=== PATIENT | female | born 1980 | race Hispanic/Latino ===

== ENCOUNTER 2016-06-28 23:48 | Inpatient (IN) | payer MEDICAID ==
[2016-06-29 00:53] LABS: Hematocrit 39.1 % (30.3-42.9); Hemoglobin 12.5 gm/dl (10.1-14.3); Mean Corpuscular HGB Conc 32 % (30-34); Mean Corpuscular Hemoglobin 30 pg (28-32); Mean Corpuscular Volume 93 fl (79-97); Platelet Count 287 K/mm3 (140-440); Red Cell Distribution Width 14.7 % (13.2-15.2)
[2016-06-29 00:58] LABS: White Blood Count 26.7 K/mm3 (4.5-11.0)
[2016-06-29 01:15] LABS: Anion Gap 25 mmol/L; BUN/Creatinine Ratio 11.42; Blood Urea Nitrogen 8 mg/dL (7-17); Carbon Dioxide 22 mmol/L (22-30); Glucose 217 mg/dL (65-100); Potassium 3.9 mmol/L (3.6-5.0); Sodium 139 mmol/L (137-145)
[2016-06-29] MEDS ORDERED: ZOSYN/NS 4.5GM/100ML 4.5 GM/100 ML VIAL IV ONE (02:00)
[2016-06-29] MEDS ORDERED: ZOFRAN IV ONE (02:00)
[2016-06-29] MEDS ORDERED: TYLENOL PO ONE (02:00)
[2016-06-29] MEDS ORDERED: NACL 0.9% 1000 ML 1,000 ML IV ONE (02:00)
[2016-06-29] MEDS ORDERED: MORPHINE IV ONE (02:00)
--- NOTE | 2016-06-29 02:01 | Emergency Department Report ---
ED General Adult HPI - General Chief complaint: Dyspnea/Respdistress Stated complaint: MESFIN Time Seen by Provider: 06/29/16 01:47 Source: patient, RN notes reviewed Mode of arrival: Ambulatory Limitations: No Limitations - History of Present Illness Initial comments: This is a 36-year-old female. She is previously known to me. Does not have a local primary care doctor. Comes to the ER complaining of epigastric right upper quadrant and left upper quadrant abdominal pain. The pain is sharp. It increases with palpation and decreases with rest. Positive fever. Positive nausea. No lower abdominal pain. No leg pain. No leg swelling. Mild shortness of breath. Is no association with heavy and/or spicy foods. -: Gradual Location: abdomen Severity scale (0 -10): 5 Quality: stabbing, aching Consistency: constant Improves with: rest Worsens with: movement Associated Symptoms: fever/chills, loss of appetite, shortness of breath, weakness - Related Data Allergies Allergy/AdvReac Type Severity Reaction Status Date / Time No Known Allergies Allergy Verified 06/29/16 00:01 ED Review of Systems ROS: Stated complaint: MESFIN Other details as noted in HPI Constitutional: fever, malaise, weakness Eyes: denies: vision change ENT: denies: epistaxis Respiratory: see HPI Cardiovascular: chest pain Gastrointestinal: abdominal pain Genitourinary: denies: dysuria Musculoskeletal: denies: back pain Skin: denies: lesions Neurological: weakness Psychiatric: anxiety ED Past Medical Hx - Past Medical History Previous Medical History?: No - Surgical History Past Surgical History?: No - Social History Smoking Status: Current Every Day Smoker Substance Use Type: None ED Physical Exam - General Limitations: No Limitations General appearance: alert, in distress, obese - Head Head exam: Present: atraumatic, normocephalic - Eye Eye exam: Present: normal appearance. Absent: PERRL, EOMI, nystagmus - ENT ENT exam: Present: normal exam, normal external ear exam - Neck Neck exam: Present: normal inspection, full ROM. Absent: tenderness, meningismus - Respiratory Respiratory exam: Present: normal lung sounds bilaterally. Absent: respiratory distress, wheezes, rales, rhonchi, decreased breath sounds - Cardiovascular Cardiovascular Exam: Present: normal rhythm, tachycardia, normal heart sounds. Absent: systolic murmur, diastolic murmur, rubs, gallop - GI/Abdominal GI/Abdominal exam: Present: soft, tenderness, normal bowel sounds, other (there is right upper quadrant tenderness, there is epigastric tenderness. No rebound , positive Cormier sign.). Absent: distended, guarding, rebound, rigid, pulsatile mass - Extremities Exam Extremities exam: Present: normal inspection, full ROM, normal capillary refill. Absent: tenderness, pedal edema, joint swelling, calf tenderness - Back Exam Back exam: Present: normal inspection, full ROM. Absent: tenderness, CVA tenderness (R), CVA tenderness (L), muscle spasm, paraspinal tenderness, vertebral tenderness - Neurological Exam Neurological exam: Present: alert, oriented X3, other (Extraocular movements intact. Tongue midline. No facial droop. Facial sensation intact to light touch in the V1, V2, V3 distribution bilaterally. 5 and 5 strength in 4 extremities.. Sensation is intact to light touch in 4 extremities.). Absent: motor sensory deficit - Psychiatric Psychiatric exam: Present: normal affect, normal mood - Skin Skin exam: Present: warm, dry, intact, normal color. Absent: rash ED Course Vital Signs 06/28/16 06/29/16 06/29/16 23:58 00:51 02:00 Temperature 99.2 F 100.8 F H Pulse Rate 122 H 106 H Respiratory 24 18 Rate Blood Pressure 98/50 131/67 [Right] O2 Sat by Pulse 100 96 96 Oximetry 06/29/16 06/29/16 04:00 05:51 Temperature 99.1 F 98.9 F Pulse Rate 120 H 121 H Respiratory 16 18 Rate Blood Pressure 108/48 102/48 [Right] O2 Sat by Pulse 96 96 Oximetry - Reevaluation(s) Reevaluation #1: 06/29/16 02:51 Differential diagnosis: Pancreatitis, cholecystitis, biliary obstruction, pneumonia, urinary tract infection Assessment and plan: 36-year-old female with epigastric and right upper quadrant pain, tachycardia, fever, leukocytosis. My bedside ultrasound demonstrates gallbladder stones, we will obtain a formal radiology ultrasound. IV fluids, broad-spectrum antibiotics, pain medication, nausea medication, Tylenol ordered. Pneumonia also possibility, x-ray suggests this as well. Reevaluation #2: 06/29/16 03:24 Right upper quadrant ultrasound demonstrates gallbladder stones, obstructing common bile duct stone. She has a transaminitis, and elevations in direct and indirect bilirubin. Clinical picture consistent with obstructing cholangitis. Case is discussed with general surgeon, Dr. Curry, who agrees to see the patient is a consult. Case is discussed with gastroenterology, Dr. Rose, who agrees to see the patient has a consult. He recommends a CT scan of the abdomen and pelvis to better evaluate patient's anatomy. Case is discussed with Hospital physician, Dr. Viramontes, who accepts patient to her service. ED Medical Decision Making - Lab Data Result diagrams: 06/30/16 05:58 06/30/16 05:58 Vital Signs 06/28/16 06/29/16 23:58 00:51 Temperature 99.2 F 100.8 F H Pulse Rate 122 H 106 H Respiratory 24 18 Rate Blood Pressure 98/50 131/67 [Right] O2 Sat by Pulse 100 96 Oximetry Lab Results 06/29/16 06/29/16 06/29/16 Range/Units 00:25 00:25 00:25 WBC 26.7 H (4.5-11.0) K/mm3 RBC 4.20 (3.65-5.03) M/mm3 Hgb 12.5 (10.1-14.3) gm/dl Hct 39.1 (30.3-42.9) % MCV 93 (79-97) fl MCH 30 (28-32) pg MCHC 32 (30-34) % RDW 14.7 (13.2-15.2) % Plt Count 287 (140-440) K/mm3 Seg Neutrophils % Upper [place] Sodium 139 (137-145) mmol/L Potassium 3.9 (3.6-5.0) mmol/L Chloride 96.0 L (98-107) mmol/L Carbon Dioxide 22 (22-30) mmol/L Anion Gap 25 mmol/L BUN 8 (7-17) mg/dL Creatinine 0.7 (0.7-1.2) mg/dL Estimated GFR > 60 ml/min BUN/Creatinine Ratio 11.42 % Glucose 217 H (65-100) mg/dL Calcium 9.0 (8.4-10.2) mg/dL Troponin T < 0.010 (0.00-0.029) ng/mL HCG, Qual Negative (Negative) - EKG Data 06/29/16 02:52 Sinus tachycardia, 110 bpm, QTC 460 ms, poor R wave progression, borderline left ventricular hypertrophy, T-wave inversions in the inferior leads, not morphologically consistent with stemi - Radiology Data Radiology results: report reviewed, image reviewed interpreted by me: X-ray of the chest suggest bilateral subtle atelectasis versus pneumonia. Critical care attestation.: If time is entered above; I have spent that time in minutes in the direct care of this critically ill patient, excluding procedure time. ED Disposition Clinical Impression: Cholangitis, Cholecystitis, Sepsis Disposition: OP ADMITTED IP TO THIS HOSP Is pt being admited?: Yes Condition: Good
--- NOTE | 2016-06-29 02:35 | XRay Report ---
FINAL REPORT EXAM: XR CHEST ROUTINE 2V HISTORY: Shortness of breath COMPARISON: None available. FINDINGS:: Frontal and lateral views of the chest obtained. Cardiac silhouette is within normal limits. Shallow inspiration. Nonspecific hazy linear opacities at the lung bases which may reflect mild atelectasis. Subtle infection cannot be excluded. No dense consolidation or effusion. No pneumothorax. Bony structures are grossly intact. IMPRESSION:: Nonspecific hazy opacities at the lung bases concerning for mild atelectasis. Small focus of pneumonia cannot be excluded.
[2016-06-29 03:00] LABS: Albumin 4.3 g/dL (3.9-5); Albumin/Globulin Ratio 1.2 %; Bilirubin,Direct 1.5 mg/dL (0-0.2); Bilirubin,Indirect 0.8 mg/dL; Bilirubin,Total 2.3 mg/dL (0.1-1.2)
[2016-06-29 03:11] LABS: INR 1.02 (0.87-1.13)
[2016-06-29 03:21] LABS: Basophils % (Manual) 0 % (0.0-1.8); Blastocytes % (Manual) 0 %; Eosinophils % (Manual) 0 % (0.0-4.3); Total Cells Counted Percent 3.5
[2016-06-29 03:22] LABS: Anisocytosis 1+; Diff Status Complete
--- NOTE | 2016-06-29 03:34 | Ultrasound Report ---
FINAL REPORT EXAM: US ABDOMEN LIMITED HISTORY: ruq pain COMPARISON: None available. TECHNIQUE: Several real-time grayscale and color Doppler images were obtained. FINDINGS: Visualized pancreas is homogeneous in echogenicity. There is increased echogenicity of the liver compatible with fatty infiltration. Right hepatic lobe measures 11.1 centimeters in length. Mild right-sided hydronephrosis. No focal renal lesion demonstrated. There is vascular flow to the right kidney. Cholelithiasis. There is a shadowing gallstone measuring 1.3 centimeters towards the gallbladder neck. Within the common bile duct there is a shadowing calculus measuring 1.3 centimeters. There dilatation the common bile duct measuring 17 millimeters. Within the distal common bile duct there is a 2nd stone. Technologist notes positive sonographic Cormier's sign. Visualized portal vein is patent. IMPRESSION: Cholelithiasis and choledocholithiasis causing dilatation the common bile duct measuring up to 17 millimeters. Technologist notes positive sonographic Cormier sign. In the correct clinical setting findings of the concerning for acute cholecystitis. Mild fatty infiltration of the liver.
[2016-06-29] MEDS ORDERED: DULCOLAX PR PRN (03:56)
[2016-06-29] MEDS ORDERED: MILK OF MAGNESIA PO PRN (03:56)
--- NOTE | 2016-06-29 04:03 | History and Physical Report ---
History of Present Illness Date of examination: 06/29/16 History of present illness: 36-year-old woman who medical problem comes emergency room with complaints of abdominal pain. Pain is located in the right upper quadrant, epigastric area which she describes as sharp pain, constant, intensity 7/10, no radiation and she cannot identify exacerbating or relieving factors. She's had multiple episodes of nausea vomiting, fever and chills Patient denies chest pain, palpitation, shortness of breath, cough, hematochezia , dysuria, frequency, focal weakness, dysarthria,, polydipsia polyuria, hot or cold intolerance, easy bruisability, or rash or bleeding from mucosal membrane, rhinorrhea, epistaxis, earache, tinnitus, blurry vision, eye discharge, anxiety , depression. Other review of systems negative PAST SURGICAL HISTORY:c/s SOCIAL HISTORY: Smoke a pack a day, no alcohol or drugs FAMILY HISTORY: Hypertension Medications and Allergies Allergies Allergy/AdvReac Type Severity Reaction Status Date / Time No Known Allergies Allergy Verified 06/29/16 00:01 Home Medications Medication Instructions Recorded Confirmed Last Taken Type ALBUTEROL NEB's [Proventil 0.083% 2.5 mg IH Q4HRT PRN #30 nebu 07/06/16 Unknown Rx NEBS] Budesoni/Formotero 160-4.5(Nf) 2 puff IH BID #1 inha 07/06/16 Unknown Rx [Symbicort 160-4.5 (Nf)] Levofloxacin [Levaquin TAB] 500 mg PO QDAY #10 tablet 07/06/16 Unknown Rx Zolpidem [Ambien] 10 mg PO QHS #30 tablet 07/06/16 Unknown Rx Active Meds: Active Medications Acetaminophen (Tylenol) 650 mg PO Q4H PRN PRN Reason: Pain MILD(1-3)/Fever >100.5/KING Bisacodyl (Dulcolax) 10 mg [place] QDAY PRN PRN Reason: Constipation unrelieved by MOM Enoxaparin Sodium (Lovenox) 40 mg SUB-Q QDAY ROHAN Sodium Chloride (Nacl 0.9% 1000 Ml) 1,000 mls @ 150 mls/hr IV DIRECT ROHAN Magnesium Hydroxide (Milk Of Magnesia) 30 ml PO Q4H PRN PRN Reason: Constipation Morphine Sulfate (Morphine) 2 mg IV Q4H PRN PRN Reason: Pain, Moderate (4-6) Ondansetron HCl (Zofran) 4 mg IV Q4H PRN PRN Reason: N/V unrelieved by Reglan Exam - Physical Exam Narrative exam: Gen. appearance: Patient lying in bed, no apparent distress HEENT: Normocephalic, atraumatic, pupils equally round and reactive to light, extraocular movement intact, and no sclericterus,. No JVD or thyromegaly or nodule,neck supple, no carotid bruit ,mucous membranes moist, no exudate or erythema Heart: S1, S2, regular rate and rhythm Lungs: Clear to auscultation bilaterally, breathing comfortable Abdomen: Positive bowel sounds, tender in the right upper quadrant, epigastric area, nondistended, no organomegaly Extremity: No edema, cyanosis, clubbing Skin: No rash, nodules, warm, dry Neuro: Oriented 3, cranial nerves II-12 intact, speech is fluent, motor and sensory intact - Constitutional Vitals: Temp Pulse Resp BP Pulse Ox 100.8 F H 106 H 18 131/67 96 06/29/16 00:51 06/29/16 00:51 06/29/16 00:51 06/29/16 00:51 06/29/16 00:51 Results - Labs CBC & Chem 7: 07/05/16 05:13 07/04/16 05:10 Labs: Abnormal lab results 06/29/16 06/29/16 06/29/16 Range/Units 00:25 00:25 00:25 WBC 26.7 H (4.5-11.0) K/mm3 Seg Neuts % (Manual) 92.0 H (40.0-70.0) % Lymphocytes % (Manual) 1.5 L (13.4-35.0) % Seg Neutrophils # Man 24.6 H (1.8-7.7) K/mm3 Lymphocytes # (Manual) 0.4 L (1.2-5.4) K/mm3 Monocytes # (Manual) 0.9 H (0.0-0.8) K/mm3 Chloride 96.0 L (98-107) mmol/L Glucose 217 H (65-100) mg/dL Total Bilirubin 2.3 H (0.1-1.2) mg/dL Direct Bilirubin 1.5 H (0-0.2) mg/dL AST 217 H (5-40) units/L ALT 154 H (7-56) units/L Alkaline Phosphatase 347 H (35-129) units/L - Imaging and Cardiology US - abdomen: report reviewed
[2016-06-29] MEDS ORDERED: NACL 0.9% 1000 ML 2,000 ML ONE (05:11)
--- NOTE | 2016-06-29 05:28 | Cat Scan Report ---
FINAL REPORT PROCEDURE: CT ABDOMEN PELVIS W CON TECHNIQUE: Computerized axial tomography of the abdomen and pelvis was performed after the IV injection of iodinated nonionic contrast. HISTORY: biliary obstruction COMPARISON: No prior studies are available for comparison. FINDINGS: Visualized lower thorax: No significant abnormality. Liver: Normal size and attenuation. Spleen: Normal size and attenuation. Gallbladder and biliary system: There are stones in the distal common bile duct measuring up to 1 centimeter causing biliary obstruction with dilatation of the intra and extrahepatic bile ducts. There are stones in the gallbladder and proximal common bile duct. There is pericholecystic fluid suggesting acute cholecystitis.. Pancreas: Normal. Adrenals: Normal. Kidneys: Normal. GI tract: There is no bowel obstruction, colitis or enteritis. The appendix is not identified.. Lymph nodes and mesentery: There are multiple enlarged mesenteric lymph nodes in the gastrohepatic ligament, shirlene hepatis and portacaval space.. Vasculature: Normal. Bladder: Normal. Reproductive organs: Uterus and ovaries are unremarkable.. Peritoneum: There is no ascites, free air, or abscess. Musculoskeletal structures: No significant abnormality. Other: None. IMPRESSION: There are stones in the distal common bile duct measuring up to 1 centimeter causing biliary obstruction with dilatation of the intra and extrahepatic bile ducts. There are stones in the gallbladder and proximal common bile duct. There is pericholecystic fluid suggesting acute cholecystitis.. There is no bowel obstruction, colitis or enteritis. The appendix is not identified.. There are multiple enlarged mesenteric lymph nodes in the gastrohepatic ligament, shirlene hepatis and portacaval space.. Uterus and ovaries are unremarkable.. There is no ascites, free air, or abscess.
[2016-06-29] MEDS ORDERED: NACL 0.9% 500 ML IV SCH (06:00)
[2016-06-29] MEDS: MORPHINE IV PRN ×3 (06:43→16:54)
[2016-06-29] MEDS: NACL 0.9% 1000 ML 1,000 ML IV SCH ×3 (06:53→22:23)
--- NOTE | 2016-06-29 07:54 | Admit Criteria Form ---
Admission Criteria Documentation: GALLBLADDER OR BILE DUCT INFLAMMATION OR STONE Clinical Indications for Admission to Inpatient Care ( Place 'X' for any and all applicable criteria): Admission is indicated for patients with ANY ONE of the following(1)(2)(3)(4)(5) : [X ]I. Acute cholecystitis as indicated by ALL of the following: [X ]a) Right upper quadrant pain, mass, or tenderness [X ]b) Systemic signs of inflammation indicated by ANY ONE of the following: [ X]i) Fever [ ]ii) C-reactive protein level greater than 10 mg/L (95 nmol/L) [X ]iii) White blood cell count greater than 10,000/mm3 (10 x109/L) or less than 4000/mm3 (4 x109/L) [ ]II. Inpatient admission required rather than observation care (Also use Gallbladder or Bile Duct Inflammation or Stone: Observation Care as appropriate) because of ANY ONE of the following: [ ]a) Common bile duct obstruction diagnosed [ ]b) Vomiting that is severe or persistent [ ]c) Severe pain requiring acute inpatient management [ ]d) Signs of intestinal obstruction or peritonitis [A] [ ]e) Severe electrolyte abnormalities requiring inpatient care [ ]f) Absent bowel sounds with complete ileus(8) [ ]g) Hemodynamic instability [ ]h) High fever or infection requiring inpatient admission as indicated by ANY ONE of the following (9): [ ]1) Appropriate outpatient or observation care antimicrobial Treatment. unavailable, not effective, or not feasible [ ]2) Temperature greater than 104.9 degrees F (40.5 degrees C) (oral) [ ]3) Temperature greater than 103.1 degrees F (39.5 degrees C) (oral) or less than 96.8 degrees F (36 degrees C) (rectal) that does not respond to all emergency treatment measures [ ]4) Documented bacteremia [ ]i) IV fluid to replace significant ongoing losses (greater than 3 L/m2 per day) [ ]j) Percutaneous or open drainage (eg, abscess, biliary tract) procedures [ ]k) Immediate inpatient surgery [ ]l) Other condition, treatment or monitoring requiring inpatient admission [ ]III. Acute cholangitis as indicated by ALL of the following(9)(10): [ ]a) Systemic signs of inflammation indicated by ANY ONE of the following: [ ]i) Fever [ ]ii) C-reactive protein level greater than 10 mg/L (95 nmol /L) [ ]iii) White blood cell count greater than 10,000/mm3 (10 x109/L) or less than 4000/mm3 (4 x109/L) [ ]b) Evidence of common bile duct disease indicated by ANY ONE of the following: [ ]i) Total serum bilirubin level greater than or equal to 2 mg/dL (34 micromoles/L) [ ]ii) Liver function test (alkaline phosphatase (ALP), r- glutamyltransferase (GGT), aspartate aminotransferase (AST), or alanine aminotransferase (ALT)) greater than 1.5 times the upper limit of normal[B] [ ]iii) Hepatobiliary imaging showing biliary dilatation or evidence of etiology (eg, stricture, stone, previously placed stent) Extended stay beyond goal length of stay may be needed for (1)(2)): [ ]a) Bacteremia or Hemodynamic instability [ ]b) Cholecystectomy [ ]c) Other surgical procedure(24) [ ]d) Percutaneous or endoscopic ultrasound-guided cholecystostomy The original [facility] [employer] content created by [facility] [employer] has been revised. The portions of the content which have been revised are identified through the use of italic text or in bold, and [facility] has neither reviewed nor approved the modified material. All other unmodified content is copyright [facility]. Please see references footnoted in the original [facility] edition 2016 Admission Criteria Met: Yes
--- NOTE | 2016-06-29 08:55 | Gastroenterology Consultation ---
<HUDSONBRANDEEFIDEL BURCH - Last Filed: 06/29/16 09:00> History of Present Illness - Reason for Consult Consult date: 06/29/16 choledocholithiasis Requesting physician: LIZABETH DELATORRE - History of Present Illness Ms. Almeida is a 36 y/o female admitted with an acute onset of RUQ pain with N/V starting last night. She states she has never had this type of pain in the past. On admission she was noted to have elevated LFTS with + choledocholithiasis per US and CT. US is suggestive of + Cormier sign. No prior hx of biliary disease. Her lactic acid and WBC are elevated with a temp on admission of 100. She was given Zosyn x 1 dose per ED. Past History Past Medical History: No medical history Past Surgical History: Other (c/s) Social history: smoking. denies: alcohol abuse Family history: no significant family history Medications and Allergies Allergies Allergy/AdvReac Type Severity Reaction Status Date / Time No Known Allergies Allergy Verified 06/29/16 00:01 Active Meds: Active Medications Acetaminophen (Tylenol) 650 mg PO Q4H PRN PRN Reason: Pain MILD(1-3)/Fever >100.5/KING Bisacodyl (Dulcolax) 10 mg [place] QDAY PRN PRN Reason: Constipation unrelieved by MOM Sodium Chloride (Nacl 0.9% 1000 Ml) 1,000 mls @ 150 mls/hr IV DIRECT ROHAN Last Admin: 06/29/16 06:53 Dose: 150 mls/hr Piperacillin Sod/Tazobactam Sod (Zosyn/Ns 2.25 Gm/50ml) 2.25 gm in 50 mls @ 100 mls/hr IV Q8HR ROHAN PRN Reason: Protocol Magnesium Hydroxide (Milk Of Magnesia) 30 ml PO Q4H PRN PRN Reason: Constipation Morphine Sulfate (Morphine) 2 mg IV Q4H PRN PRN Reason: Pain, Moderate (4-6) Last Admin: 06/29/16 06:43 Dose: 2 mg Ondansetron HCl (Zofran) 4 mg IV Q4H PRN PRN Reason: N/V unrelieved by Reglan Review of Systems - Review of Systems All systems: negative Gastrointestinal: abdominal pain, nausea, vomiting Exam - Constitutional Vital Signs: Temp Pulse Resp BP Pulse Ox 98.9 F 121 H 18 102/48 96 06/29/16 05:51 06/29/16 05:51 06/29/16 06:43 06/29/16 05:51 06/29/16 05:51 General appearance: no acute distress - EENT Eyes: EOM intact ENT: hearing intact - Neck Neck: supple - Respiratory Respiratory: bilateral: CTA - Cardiovascular Rhythm: regular Heart Sounds: Present: S1 & S2 - Gastrointestinal General gastrointestinal: Present: soft, tender (TTP RUQ), normal bowel sounds - Integumentary Integumentary: Present: warm, dry - Neurologic Neurological: alert and oriented x3 - Psychiatric Psychiatric: appropriate mood/affect, cooperative - Labs CBC & Chem 7: 06/29/16 00:25 06/29/16 00:25 Lab Results: Laboratory Results - last 24 hr 06/29/16 06:17 Lactic Acid 4.0 H* Assessment and Plan 1. Cholangitis 2. Choledocholithiasis 3. Cholecystitis -Continue Zosyn. (pt received 1 dose in the ED) -I have discontinued Lovenox SQ -INR WNL -Keep NPO -WIll need ERCP today -Agree with surgical consult for CCY -Noted WBC 26K with elevated Lactic acid -repeat lactic acid - <GINETTE ZACARIAS - Last Filed: 06/29/16 12:50> Medications and Allergies Active Meds: Active Medications Acetaminophen (Tylenol) 650 mg PO Q4H PRN PRN Reason: Pain MILD(1-3)/Fever >100.5/KING Bisacodyl (Dulcolax) 10 mg NV QDAY PRN PRN Reason: Constipation unrelieved by MOM Sodium Chloride (Nacl 0.9% 1000 Ml) 1,000 mls @ 150 mls/hr IV DIRECT ROHAN Last Admin: 06/29/16 06:53 Dose: 150 mls/hr Piperacillin Sod/Tazobactam Sod (Zosyn/Ns 4.5gm/100ml) 4.5 gm in 100 mls @ 200 mls/hr IV Q8HR ROHAN Last Admin: 06/29/16 11:10 Dose: 200 mls/hr Magnesium Hydroxide (Milk Of Magnesia) 30 ml PO Q4H PRN PRN Reason: Constipation Morphine Sulfate (Morphine) 2 mg IV Q4H PRN PRN Reason: Pain, Moderate (4-6) Last Admin: 06/29/16 11:37 Dose: 2 mg Ondansetron HCl (Zofran) 4 mg IV Q4H PRN PRN Reason: N/V unrelieved by Reglan Exam - Constitutional Vital Signs: Temp Pulse Resp BP Pulse Ox 98.9 F 121 H 18 102/48 96 06/29/16 05:51 06/29/16 05:51 06/29/16 06:43 06/29/16 05:51 06/29/16 10:16 - Labs CBC & Chem 7: 06/29/16 00:25 06/29/16 00:25 Lab Results: Laboratory Results - last 24 hr 06/29/16 06/29/16 06:17 09:41 Lactic Acid 4.0 H* 3.0 H* Assessment and Plan Patient seen and examined. Agree with note by Missy Bass. Patient presenting with abdominal pain and chills since yesterday, appears to have cholangitis. Currently HD stable, cont abx, will repeat labs. Will need ERCP, possibly today vs tomorrow depending on clinical course.
[2016-06-29] MEDS ORDERED: LOVENOX SUB-Q SCH (10:00)
[2016-06-29] MEDS: ZOSYN/NS 4.5GM/100ML 4.5 GM/100 ML VIAL IV SCH ×3 (11:10→23:08)
[2016-06-29] MEDS ORDERED: ZOSYN/NS 2.25 GM/50ML 2.25 GM/50 ML BAG IV SCH (14:00)
[2016-06-29 14:13] LABS: Hemoglobin 10.3 gm/dl (10.1-14.3); Mean Corpuscular HGB Conc 33 % (30-34); Mean Corpuscular Hemoglobin 31 pg (28-32); Mean Corpuscular Volume 93 fl (79-97); Platelet Count 162 K/mm3 (140-440); Red Blood Count 3.35 M/mm3 (3.65-5.03); Red Cell Distribution Width 14.9 % (13.2-15.2)
[2016-06-29 14:36] LABS: White Blood Count 23.3 K/mm3 (4.5-11.0)
[2016-06-29 14:59] LABS: Anisocytosis Few; Blastocytes % (Manual) 0 %; Diff Status Complete; Eosinophils % (Manual) 0 % (0.0-4.3); Platelet Estimate Appears Decreased
[2016-06-29 16:17] LABS: Alanine Aminotransferase 136 units/L (7-56); Albumin 3.1 g/dL (3.9-5); Alkaline Phosphatase 222 units/L (35-129); Anion Gap 19 mmol/L; BUN/Creatinine Ratio 11.66; Bilirubin,Total 3.9 mg/dL (0.1-1.2); Blood Urea Nitrogen 7 mg/dL (7-17); Calcium 7.5 mg/dL (8.4-10.2); Carbon Dioxide 22 mmol/L (22-30); Chloride 101.1 mmol/L (98-107); Glucose 165 mg/dL (65-100); Potassium 4.2 mmol/L (3.6-5.0); Sodium 138 mmol/L (137-145); Total Protein 6.2 g/dL (6.3-8.2)
[2016-06-29] MEDS: ZOFRAN IV PRN (16:54)
[2016-06-29] MEDS: TYLENOL PO PRN (16:54)
[2016-06-29] MEDS ORDERED: GLUCAGEN ONE (20:29)
[2016-06-29] MEDS ORDERED: NACL 0.9% 100 ML ONE (20:29)
--- NOTE | 2016-06-29 20:50 | Anesthesia Consultation ---
Anesthesia Consult and Med Hx - Airway Anesthetic Teeth Evaluation: Edentulous ROM Head & Neck: Adequate Mental/Hyoid Distance: Adequate Mallampati Class: Class II Intubation Access Assessment: Probably Good - Pulmonary Exam CTA: Yes - Cardiac Exam Cardiac Exam: RRR - Pre-Operative Health Status ASA Pre-Surgery Classification: ASA2 Proposed Anesthetic Plan: MAC - Pulmonary Hx Smoking: Yes (1 ppd) Hx Asthma: No COPD: No - Endocrine Hx End Stage Renal Disease: No - Other Systems Hx Alcohol Use: No
--- NOTE | 2016-06-29 20:51 | Anesthesia Day of Surgery ---
Anesthesia Day of Surgery - Day of Surgery Patient Examined: Yes Patient H&P Reviewed: Yes Patient is NPO: Yes (recent nausea has resolved)
[2016-06-29] MEDS ORDERED: DILAUDID IV PRN (20:52)
[2016-06-29] MEDS ORDERED: DIPRIVAN 10 MG/ML IV ONE ×2 (20:55→21:14)
[2016-06-29] MEDS ORDERED: VERSED ONE (20:55)
[2016-06-29] MEDS ORDERED: SUBLIMAZE ONE (20:55)
[2016-06-29] MEDS ORDERED: XYLOCAINE MPF 2% ONE (21:00)
[2016-06-29] MEDS ORDERED: PEPCID IV NR (21:00)
[2016-06-29] MEDS ORDERED: ZOFRAN IV NR (21:00)
[2016-06-29] MEDS ORDERED: PROVENTIL IH ONE (22:00)
--- NOTE | 2016-06-29 22:14 | Post Operative Note ---
Pre-op diagnosis: Cholangitis, CBD stones Post-op diagnosis: other (Aborted ERCP, EGD completed. 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 Normal gastric antrum 2. Bulging major papilla, with small punctate area at base of ampullary bulge with purulent discharge staining it, c/w spontaneous choledochoduodenal fistula. 3. Procedure aborted due to laryngospasm. Procedure: Aborted ERCP; EGD done Anesthesia: MAC Surgeon: PRECIOUS SANDOVAL Estimated blood loss: none Pathology: none Condition: stable Disposition: PACU (Pt had laryngospasm within 2' of advancing scope into GI tract. Procedure aborted. Continue abx and monitor.)
--- NOTE | 2016-06-29 22:14 | Consultation ---
HISTORY OF PRESENT ILLNESS: This patient presented to the ER last night. She is a 36-year-old white female who presented because of severe pain in the epigastrium with nausea and vomiting. The pain was mainly localized to the right upper quadrant and she was evaluated by our ER physician. She was found to have a high white count in the range of 26,000, this morning 23,000. She had elevated bilirubin in the range of 2.3. The LFTs were elevated as well. The alkaline phosphatase was 346. The patient was thus admitted and she was found to have multiple stones in the gallbladder as well as in the gallbladder duct. It was dilated up to 1.7 cm. She looked jaundiced to me. She never had this before. She gives history of three section in the past. ALLERGIES: She is not allergic to any medications. MEDICATIONS: She is on no medicine at the present time. PHYSICAL EXAMINATION: GENERAL: Showed a well preserved white female. She looks jaundiced to me. She is on IV fluid 150 per hour. HEAD AND NECK: Essentially negative. Neck is supple. BREASTS: Symmetric. No evidence of any specific masses. CHEST: Clear to me. ABDOMEN: Protuberant, tenderness, however, in the right upper quadrant. EXTREMITIES: Showed no evidence of edema. IMPRESSION AND PLAN: 1. Right upper quadrant pain with cholelithiasis and choledocholithiasis. 2. Cholecystitis. 3. Ascending cholangitis. 4. Status post 2 sections. 5. Hyperbilirubinemia. I believe this need to be addressed. going to do a HIDA scan on her to see if there is any cystic duct obstruction or not. If that is the case, she may need a cholecystectomy or at least cholecystotomy. JOB# [id number] BRENNAN/EDGARDO
--- NOTE | 2016-06-29 22:15 | Post Anesthesia Evaluation ---
- Post Anesthesia Evaluation Patient Participated: Yes Airway Patent: Yes Stable Respiratory Function: Yes Temp > 96.8F: Yes Pain Manageable: Yes Adequeate Hydration: Yes Anesthesia Complications: No Block Receding Appropriately: Not Applicable (case was cancelled intraop due to copious respiratory secretion resulting in laryngeal spasm. Pt was placed supine and an LMA was inserted to support airway. After LMA removal,Pt was taken to PACU, given lidocaine and an albuterol aerosol.)
--- NOTE | 2016-06-29 23:40 | Operative Report ---
PROCEDURE: Aborted ERCP/completed EGD. SEDATION: MAC by anesthesia. HISTORY: The patient is a 36-year-old woman with cholangitis and choledocholithiasis on imaging studies, who was brought for ERCP. She had been septic earlier in the day, but appeared to be improving with a decrease in white count and decrease in lactic acid level and decrease in abdominal discomfort. PROCEDURE IN DETAIL: Indications, risks, and benefits were explained and consent was obtained. The patient was placed on abdominal fluoroscopy table and sedated. Zawatt video duodenoscope was passed through the mouth and oropharynx into the descending duodenum. Scope was then withdrawn gradually until the major papilla was visualized. While preparing to selectively cannulate the common bile duct, the patient developed laryngospasm and scope had to be withdrawn. Because of bronchial reactivity, decision was made to abort the procedure and allow the patient to improve clinically further. FINDINGS: 1. Normal appearing gastric antrum. 2. Bulging major papilla with otherwise normal mucosa. 3. 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 The patient had bronchospasm and was supported with an LMA, which was eventually withdrawn. Airway was being managed by Anesthesia. The patient did not have any other complications. IMPRESSION: 1. Bulging major ampulla consistent with impacted stone. 2. 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 PLAN: 1. Continue antibiotics and supportive care. 2. We will repeat ERCP in the next several days once the patient is more stable and her airways are not as reactive. Should she develop clinical deterioration, we will need to proceed with a more urgent ERCP or possible PTC. JOB# [id number] HRC/NTS
[2016-06-30] MEDS: TYLENOL PO PRN ×3 (00:16→19:45)
[2016-06-30] MEDS: MORPHINE IV PRN ×3 (05:51→22:41)
[2016-06-30] MEDS: NACL 0.9% 1000 ML 1,000 ML IV SCH ×2 (05:52→18:03)
[2016-06-30] MEDS: ZOSYN/NS 4.5GM/100ML 4.5 GM/100 ML VIAL IV SCH ×3 (05:53→22:39)
[2016-06-30 06:26] LABS: Basophils % (Auto) 0.7 % (0.0-1.8); Eosinophils % (Auto) 0.5 % (0.0-4.3); Hematocrit 31.2 % (30.3-42.9); Hemoglobin 10.1 gm/dl (10.1-14.3); Mean Corpuscular HGB Conc 32 % (30-34); Mean Corpuscular Hemoglobin 30 pg (28-32); Mean Corpuscular Volume 93 fl (79-97); Platelet Count 128 K/mm3 (140-440); Red Blood Count 3.34 M/mm3 (3.65-5.03); Red Cell Distribution Width 14.9 % (13.2-15.2); White Blood Count 15.5 K/mm3 (4.5-11.0)
[2016-06-30 06:53] LABS: Alanine Aminotransferase 107 units/L (7-56); Alkaline Phosphatase 207 units/L (35-129); Anion Gap 16 mmol/L; Bilirubin,Total 3.2 mg/dL (0.1-1.2); Blood Urea Nitrogen 6 mg/dL (7-17); Calcium 7.1 mg/dL (8.4-10.2); Carbon Dioxide 21 mmol/L (22-30); Chloride 106.2 mmol/L (98-107); Glucose 105 mg/dL (65-100); Potassium 3.4 mmol/L (3.6-5.0); Sodium 140 mmol/L (137-145); Total Protein 6.1 g/dL (6.3-8.2)
[2016-06-30 09:49] LABS: Albumin 2.9 g/dL (3.9-5); Albumin/Globulin Ratio 0.9 %; Bilirubin,Direct 2.6 mg/dL (0-0.2); Bilirubin,Indirect 0.5 mg/dL; Bilirubin,Total 3.1 mg/dL (0.1-1.2)
--- NOTE | 2016-06-30 12:20 | Nuclear Medicine Report ---
HIDA scan: Examination performed with 5 mCi technetium 99m Choletec. History: Cholecystitis jaundice. Findings: Uniform distribution of tracer is noted in the liver. Persistence of tracer is identified in the liver. No tracer is noted in the gallbladder and in the duodenum on delayed images up to 2 hours. The biliary system is not visualized. Impression: Finding suggestive obstruction to the distal common bile duct. Non-visualization of gallbladder may be related to associated cystic duct obstruction.
--- NOTE | 2016-06-30 14:04 | Progress Note ---
Subjective Patient Reports: Positive: feels better, still having pain Narrative: Doing OK . pain a little less .. ERCP did not work yesterday as per Dr Bhatia . chris talk with Pt will have IR to see , consideration for tube cholecystostomy .talked to Dr Nevin Villela , will have Dr Cordova to see PT . Objective Vital Signs - 12hr 06/30/16 06/30/16 08:00 09:49 Temperature 100.7 F H Pulse Rate [ 100 H Left Radial] Respiratory 20 Rate Blood Pressure 102/60 [Left Arm] O2 Sat by Pulse 97 93 Oximetry - Labs 06/30/16 05:58 06/30/16 05:58 Diabetes panel 06/29/16 06/30/16 06/30/16 Range/Units 13:48 05:58 05:58 Sodium 138 140 (137-145) mmol/L Potassium 4.2 3.4 L (3.6-5.0) mmol/L Chloride 101.1 106.2 (98-107) mmol/L Carbon Dioxide 22 21 L (22-30) mmol/L BUN 7 6 L (7-17) mg/dL Creatinine 0.6 L 0.5 L (0.7-1.2) mg/dL Glucose 165 H 105 H (65-100) mg/dL Calcium 7.5 L D 7.1 L (8.4-10.2) mg/dL AST 148 H 93 H 95 H (5-40) units/L ALT 136 H 107 H 107 H (7-56) units/L Alkaline Phosphatase 222 H 207 H 207 H (35-129) units/L Total Protein 6.2 L D 6.1 L 6.0 L (6.3-8.2) g/dL Albumin 3.1 L 3.0 L 2.9 L (3.9-5) g/dL Calcium panel 06/29/16 06/30/16 06/30/16 Range/Units 13:48 05:58 05:58 Calcium 7.5 L D 7.1 L (8.4-10.2) mg/dL Albumin 3.1 L 3.0 L 2.9 L (3.9-5) g/dL Pituitary panel 06/29/16 06/30/16 Range/Units 13:48 05:58 Sodium 138 140 (137-145) mmol/L Potassium 4.2 3.4 L (3.6-5.0) mmol/L Chloride 101.1 106.2 (98-107) mmol/L Carbon Dioxide 22 21 L (22-30) mmol/L BUN 7 6 L (7-17) mg/dL Creatinine 0.6 L 0.5 L (0.7-1.2) mg/dL Glucose 165 H 105 H (65-100) mg/dL Calcium 7.5 L D 7.1 L (8.4-10.2) mg/dL Adrenal panel 06/29/16 06/30/16 06/30/16 Range/Units 13:48 05:58 05:58 Sodium 138 140 (137-145) mmol/L Potassium 4.2 3.4 L (3.6-5.0) mmol/L Chloride 101.1 106.2 (98-107) mmol/L Carbon Dioxide 22 21 L (22-30) mmol/L BUN 7 6 L (7-17) mg/dL Creatinine 0.6 L 0.5 L (0.7-1.2) mg/dL Glucose 165 H 105 H (65-100) mg/dL Calcium 7.5 L D 7.1 L (8.4-10.2) mg/dL Total Bilirubin 3.9 H 3.2 H 3.1 H (0.1-1.2) mg/dL AST 148 H 93 H 95 H (5-40) units/L ALT 136 H 107 H 107 H (7-56) units/L Alkaline Phosphatase 222 H 207 H 207 H (35-129) units/L Total Protein 6.2 L D 6.1 L 6.0 L (6.3-8.2) g/dL Albumin 3.1 L 3.0 L 2.9 L (3.9-5) g/dL
--- NOTE | 2016-06-30 14:39 | Progress Note ---
Assessment and Plan 1. Choledocholithiasis/cholangitis - with known impacted stone in ampulla. 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 Clinically improving on abx, with decreasing WBC, though still has fever. - cont abx - give ice chips - monitor and if worsens, urgent ERCP or PTC for drainage - o/w, ERCP early this week - discussed with pt and with her [id number](guardian) Subjective Date of service: 06/30/16 Interval history: Pt unable to tolerate ERCP last night due to laryngospasm. Overall, feels better today, with decreased abd pain, though still present. Wants to eat or drink. Objective - Constitutional Vitals: Vital Signs - 12hr 06/30/16 06/30/16 08:00 09:49 Temperature 100.7 F H Pulse Rate [ 100 H Left Radial] Respiratory 20 Rate Blood Pressure 102/60 [Left Arm] O2 Sat by Pulse 97 93 Oximetry General appearance: Present: no acute distress - EENT Eyes: PERRL, EOM intact, scleral icterus ENT: hearing intact, clear oral mucosa - Respiratory Respiratory effort: normal - Cardiovascular Rhythm: regular Heart Sounds: Present: S1 & S2 - Gastrointestinal General gastrointestinal: Present: soft, tender (In upper abd and RUQ) - Labs CBC & Chem 7: 06/30/16 05:58 06/30/16 05:58 Labs: Abnormal lab results 06/29/16 06/29/16 06/30/16 Range/Units 13:48 13:48 05:58 WBC 23.3 H 15.5 H (4.5-11.0) K/mm3 RBC 3.35 L 3.34 L (3.65-5.03) M/mm3 Plt Count 128 L (140-440) K/mm3 Lymph % (Auto) 9.5 L (13.4-35.0) % Real # 1.1 H (0.0-0.8) K/mm3 Seg Neutrophils % 82.0 H (40.0-70.0) % Lymphocytes % (Manual) 4.0 L (13.4-35.0) % Seg Neutrophils # 12.7 H (1.8-7.7) K/mm3 Seg Neutrophils # Man 16.1 H (1.8-7.7) K/mm3 Lymphocytes # (Manual) 0.9 L (1.2-5.4) K/mm3 Potassium (3.6-5.0) mmol/L Carbon Dioxide (22-30) mmol/L BUN (7-17) mg/dL Creatinine 0.6 L (0.7-1.2) mg/dL Glucose 165 H (65-100) mg/dL Calcium 7.5 L D (8.4-10.2) mg/dL Total Bilirubin 3.9 H (0.1-1.2) mg/dL Direct Bilirubin (0-0.2) mg/dL AST 148 H (5-40) units/L ALT 136 H (7-56) units/L Alkaline Phosphatase 222 H (35-129) units/L Total Protein 6.2 L D (6.3-8.2) g/dL Albumin 3.1 L (3.9-5) g/dL 06/30/16 06/30/16 Range/Units 05:58 05:58 WBC (4.5-11.0) K/mm3 RBC (3.65-5.03) M/mm3 Plt Count (140-440) K/mm3 Lymph % (Auto) (13.4-35.0) % Real # (0.0-0.8) K/mm3 Seg Neutrophils % (40.0-70.0) % Lymphocytes % (Manual) (13.4-35.0) % Seg Neutrophils # (1.8-7.7) K/mm3 Seg Neutrophils # Man (1.8-7.7) K/mm3 Lymphocytes # (Manual) (1.2-5.4) K/mm3 Potassium 3.4 L (3.6-5.0) mmol/L Carbon Dioxide 21 L (22-30) mmol/L BUN 6 L (7-17) mg/dL Creatinine 0.5 L (0.7-1.2) mg/dL Glucose 105 H (65-100) mg/dL Calcium 7.1 L (8.4-10.2) mg/dL Total Bilirubin 3.2 H 3.1 H (0.1-1.2) mg/dL Direct Bilirubin 2.6 H (0-0.2) mg/dL AST 93 H 95 H (5-40) units/L ALT 107 H 107 H (7-56) units/L Alkaline Phosphatase 207 H 207 H (35-129) units/L Total Protein 6.1 L 6.0 L (6.3-8.2) g/dL Albumin 3.0 L 2.9 L (3.9-5) g/dL
[2016-06-30] MEDS: ZOFRAN IV PRN (22:43)
[2016-07-01] MEDS: ZOSYN/NS 4.5GM/100ML 4.5 GM/100 ML VIAL IV SCH ×3 (06:30→22:19)
[2016-07-01] MEDS: TYLENOL PO PRN ×2 (08:27→20:03)
[2016-07-01] MEDS: ZOFRAN IV PRN ×2 (08:30→20:03)
[2016-07-01] MEDS: NACL 0.9% 1000 ML 1,000 ML IV SCH ×2 (11:19→17:34)
--- NOTE | 2016-07-01 13:20 | Progress Note ---
Assessment and Plan 1. Choledocholithiasis/cholangitis - with known impacted stone in ampulla. 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 Clinically improving on abx, and now afebrile. - cont abx - give clears - monitor and if worsens, urgent ERCP or PTC for drainage - o/w, ERCP early this week - discussed with pt Subjective Date of service: 07/01/16 Interval history: Pt feels better today, with decreased abd pain, though still present. Wants to eat or drink. Objective - Constitutional Vitals: Vital Signs - 12hr 07/01/16 07/01/16 07:15 08:04 Temperature 99.2 F Pulse Rate [ 111 H Right Radial] Respiratory 18 Rate Blood Pressure 112/64 [Left Arm] O2 Sat by Pulse 90 97 Oximetry General appearance: Present: no acute distress - EENT Eyes: PERRL, EOM intact ENT: hearing intact - Respiratory Respiratory effort: normal - Gastrointestinal General gastrointestinal: Present: soft, tender (Mild, in epigastrium and RUQ) - Labs CBC & Chem 7: 06/30/16 05:58 06/30/16 05:58
--- NOTE | 2016-07-01 16:47 | Progress Note ---
Subjective Patient Reports: Positive: no new complaints, feels better Narrative: talked to Pt doing OK for IR in AM cholecystostomy ,wii chec CBC and Liver profile Ice chips , Objective Vital Signs - 12hr 07/01/16 07/01/16 07/01/16 07:15 08:04 14:30 Temperature 99.2 F 99.5 F Pulse Rate [ 111 H 108 H Right Radial] Respiratory 18 20 Rate Blood Pressure 112/64 136/81 [Left Arm] O2 Sat by Pulse 90 97 Oximetry - Labs 06/30/16 05:58 06/30/16 05:58
[2016-07-01] MEDS: MORPHINE IV PRN (17:21)
[2016-07-02] MEDS: MORPHINE IV PRN ×3 (03:52→13:25)
[2016-07-02] MEDS: ZOFRAN IV PRN ×2 (03:52→08:08)
[2016-07-02] MEDS: ZOSYN/NS 4.5GM/100ML 4.5 GM/100 ML VIAL IV SCH ×2 (06:30→13:25)
--- NOTE | 2016-07-02 06:35 | Progress Note ---
Assessment and Plan - Patient Problems (1) Sepsis Current Visit: Yes Status: Acute Qualifiers: Sepsis type: S Plan to address problem: IV abx, ivf, supportive care, monitor uop q shift (2) Cholangitis Current Visit: Yes Status: Acute Plan to address problem: IV abx, supportive care, GI consulted, surgery consulted. (3) Cholecystitis Current Visit: Yes Status: Acute Plan to address problem: IV abx, surgery consulted, GI consulted, bowel rest, supportive care. (4) Choledocholithiasis Current Visit: Yes Status: Acute Plan to address problem: GI consulted, bowel rest, intervention as per GI team (5) DVT prophylaxis Current Visit: Yes Status: Acute History Interval history: Pt lying in bed, Pt complains of abdominal pain. NO reported nursing events. Hospitalist Physical - Constitutional Vitals: Temp Pulse Resp BP Pulse Ox 98.2 F 105 H 20 109/58 94 07/02/16 04:59 07/02/16 04:59 07/02/16 04:59 07/02/16 04:59 07/02/16 04:59 General appearance: Present: mild distress, obese - EENT Eyes: Present: PERRL ENT: hearing intact - Neck Neck: Present: supple - Respiratory Respiratory: bilateral: CTA - Cardiovascular Rhythm: regular Heart Sounds: Present: S1 & S2 - Extremities Extremities: no ischemia Peripheral Pulses: within normal limits - Abdominal General gastrointestinal: soft, tender, non-distended, hypoactive bowel sounds, no mass, no hernia - Integumentary Integumentary: Present: clear, warm, dry - Psychiatric Psychiatric: appropriate mood/affect, cooperative - Neurologic Neurologic: CNII-XII intact Results - Labs CBC & Chem 7: 06/30/16 05:58 06/30/16 05:58 Labs: Laboratory Last Values WBC 15.5 K/mm3 (4.5-11.0) H 06/30/16 05:58 RBC 3.34 M/mm3 (3.65-5.03) L 06/30/16 05:58 Hgb 10.1 gm/dl (10.1-14.3) 06/30/16 05:58 Hct 31.2 % (30.3-42.9) 06/30/16 05:58 MCV 93 fl (79-97) 06/30/16 05:58 MCH 30 pg (28-32) 06/30/16 05:58 MCHC 32 % (30-34) 06/30/16 05:58 RDW 14.9 % (13.2-15.2) 06/30/16 05:58 Plt Count 128 K/mm3 (140-440) L 06/30/16 05:58 Lymph % (Auto) 9.5 % (13.4-35.0) L 06/30/16 05:58 [place] % (Auto) 7.3 % (0.0-7.3) 06/30/16 05:58 Eos % (Auto) 0.5 % (0.0-4.3) 06/30/16 05:58 Baso % (Auto) 0.7 % (0.0-1.8) 06/30/16 05:58 Lymph # 1.5 K/mm3 (1.2-5.4) 06/30/16 05:58 [place] # 1.1 K/mm3 (0.0-0.8) H 06/30/16 05:58 Eos # 0.1 K/mm3 (0.0-0.4) 06/30/16 05:58 Baso # 0.1 K/mm3 (0.0-0.1) 06/30/16 05:58 Add Manual Diff Complete 06/29/16 13:48 Total Counted 100 06/29/16 13:48 Seg Neutrophils % 82.0 % (40.0-70.0) H 06/30/16 05:58 Seg Neuts % (Manual) 69.0 % (40.0-70.0) 06/29/16 13:48 Band Neutrophils % 22.0 % 06/29/16 13:48 Lymphocytes % (Manual) 4.0 % (13.4-35.0) L 06/29/16 13:48 Reactive Lymphs % (Man) 0 % 06/29/16 13:48 Monocytes % (Manual) 2.0 % (0.0-7.3) 06/29/16 13:48 Eosinophils % (Manual) 0 % (0.0-4.3) 06/29/16 13:48 Basophils % (Manual) 0 % (0.0-1.8) 06/29/16 00:25 Metamyelocytes % 3.0 % 06/29/16 13:48 Myelocytes % 0 % 06/29/16 13:48 Promyelocytes % 0 % 06/29/16 13:48 Blast Cells % 0 % 06/29/16 13:48 Nucleated RBC % Not Reportable 06/29/16 13:48 Seg Neutrophils # 12.7 K/mm3 (1.8-7.7) H 06/30/16 05:58 Seg Neutrophils # Man 16.1 K/mm3 (1.8-7.7) H 06/29/16 13:48 Band Neutrophils # 5.1 K/mm3 06/29/16 13:48 Lymphocytes # (Manual) 0.9 K/mm3 (1.2-5.4) L 06/29/16 13:48 Abs React Lymphs (Man) 0.0 K/mm3 06/29/16 13:48 Monocytes # (Manual) 0.5 K/mm3 (0.0-0.8) 06/29/16 13:48 Eosinophils # (Manual) 0.0 K/mm3 (0.0-0.4) 06/29/16 13:48 Basophils # (Manual) 0.0 K/mm3 (0.0-0.1) 06/29/16 13:48 Metamyelocytes # 0.7 K/mm3 06/29/16 13:48 Myelocytes # 0.0 K/mm3 06/29/16 13:48 Promyelocytes # 0.0 K/mm3 06/29/16 13:48 Blast Cells # 0.0 K/mm3 06/29/16 13:48 WBC Morphology Not Reportable 06/29/16 13:48 Hypersegmented Neuts Not Reportable 06/29/16 13:48 Hyposegmented Neuts Not Reportable 06/29/16 13:48 Hypogranular Neuts Not Reportable 06/29/16 13:48 Smudge Cells Not Reportable 06/29/16 13:48 Toxic Granulation Not Reportable 06/29/16 13:48 Toxic Vacuolation Not Reportable 06/29/16 13:48 Dohle Bodies Not Reportable 06/29/16 13:48 Pelger-Huet Anomaly Not Reportable 06/29/16 13:48 Basil Rods Not Reportable 06/29/16 13:48 Platelet Estimate Appears decreased 06/29/16 13:48 Clumped Platelets Not Reportable 06/29/16 13:48 Plt Clumps, EDTA Not Reportable 06/29/16 13:48 Large Platelets Not Reportable 06/29/16 13:48 Giant Platelets Not Reportable 06/29/16 13:48 Platelet Satelliting Not Reportable 06/29/16 13:48 Plt Morphology Comment Not Reportable 06/29/16 13:48 RBC Morphology Not Reportable 06/29/16 13:48 Dimorphic RBCs Not Reportable 06/29/16 13:48 Polychromasia Not Reportable 06/29/16 13:48 Hypochromasia Not Reportable 06/29/16 13:48 Poikilocytosis Not Reportable 06/29/16 13:48 Anisocytosis Few 06/29/16 13:48 Microcytosis Not Reportable 06/29/16 13:48 Macrocytosis Not Reportable 06/29/16 13:48 Spherocytes Not Reportable 06/29/16 13:48 Pappenheimer Bodies Not Reportable 06/29/16 13:48 Sickle Cells Not Reportable 06/29/16 13:48 Target Cells Not Reportable 06/29/16 13:48 Tear Drop Cells Not Reportable 06/29/16 13:48 Ovalocytes Not Reportable 06/29/16 13:48 Helmet Cells Not Reportable 06/29/16 13:48 Cabrera-Fernley Bodies Not Reportable 06/29/16 13:48 [place] Rings Not Reportable 06/29/16 13:48 Jennifer Cells Not Reportable 06/29/16 13:48 Bite Cells Not Reportable 06/29/16 13:48 Crenated Cell Not Reportable 06/29/16 13:48 Elliptocytes Not Reportable 06/29/16 13:48 Acanthocytes (Spur) Not Reportable 06/29/16 13:48 Rouleaux Not Reportable 06/29/16 13:48 Hemoglobin C Crystals Not Reportable 06/29/16 13:48 Schistocytes Not Reportable 06/29/16 13:48 Malaria parasites Not Reportable 06/29/16 13:48 Harley Bodies Not Reportable 06/29/16 13:48 Hem Pathologist Commnt No 06/29/16 13:48 PT 13.3 Sec. (12.2-14.9) 06/29/16 02:25 INR 1.02 (0.87-1.13) 06/29/16 02:25 Sodium 140 mmol/L (137-145) 06/30/16 05:58 Potassium 3.4 mmol/L (3.6-5.0) L 06/30/16 05:58 Chloride 106.2 mmol/L (98-107) 06/30/16 05:58 Carbon Dioxide 21 mmol/L (22-30) L 06/30/16 05:58 Anion Gap 16 mmol/L 06/30/16 05:58 BUN 6 mg/dL (7-17) L 06/30/16 05:58 Creatinine 0.5 mg/dL (0.7-1.2) L 06/30/16 05:58 Estimated GFR > 60 ml/min 06/30/16 05:58 BUN/Creatinine Ratio 12.00 % 06/30/16 05:58 Glucose 105 mg/dL (65-100) H 06/30/16 05:58 Lactic Acid 1.6 mmol/L (0.7-2.0) 06/29/16 17:55 Calcium 7.1 mg/dL (8.4-10.2) L 06/30/16 05:58 Total Bilirubin 3.1 mg/dL (0.1-1.2) H 06/30/16 05:58 Direct Bilirubin 2.6 mg/dL (0-0.2) H 06/30/16 05:58 Indirect Bilirubin 0.5 mg/dL 06/30/16 05:58 AST 95 units/L (5-40) H 06/30/16 05:58 ALT 107 units/L (7-56) H 06/30/16 05:58 Alkaline Phosphatase 207 units/L (35-129) H 06/30/16 05:58 Troponin T < 0.010 ng/mL (0.00-0.029) 06/29/16 00:25 Total Protein 6.0 g/dL (6.3-8.2) L 06/30/16 05:58 Albumin 2.9 g/dL (3.9-5) L 06/30/16 05:58 Albumin/Globulin Ratio 0.9 % 06/30/16 05:58 Lipase 30 units/L (13-60) 06/29/16 00:25 HCG, Qual Negative (Negative) 06/29/16 00:25
--- NOTE | 2016-07-02 06:36 | Progress Note ---
Assessment and Plan - Patient Problems (1) Sepsis Current Visit: Yes Status: Acute Qualifiers: Sepsis type: S Plan to address problem: IV abx, ivf, supportive care, monitor uop q shift (2) Cholangitis Current Visit: Yes Status: Acute Plan to address problem: IV abx, supportive care, GI consulted, surgery consulted. (3) Cholecystitis Current Visit: Yes Status: Acute Plan to address problem: IV abx, surgery consulted, GI consulted, bowel rest, supportive care. (4) Choledocholithiasis Current Visit: Yes Status: Acute Plan to address problem: GI consulted, bowel rest, intervention as per GI team (5) DVT prophylaxis Current Visit: Yes Status: Acute History Interval history: Pt lying in bed, Pt complains of abdominal pain. NO reported nursing events. Hospitalist Physical - Constitutional Vitals: Temp Pulse Resp BP Pulse Ox 98.2 F 105 H 20 109/58 94 07/02/16 04:59 07/02/16 04:59 07/02/16 04:59 07/02/16 04:59 07/02/16 04:59 General appearance: Present: no acute distress, obese - EENT Eyes: Present: PERRL, EOM intact ENT: hearing intact - Neck Neck: Present: supple - Respiratory Respiratory effort: normal Respiratory: bilateral: CTA - Cardiovascular Rhythm: regular Heart Sounds: Present: S1 & S2 - Extremities Extremities: no ischemia Extremity abnormal: edema Peripheral Pulses: within normal limits - Abdominal General gastrointestinal: soft, tender, non-distended, no hepatomegaly, no splenomegaly - Integumentary Integumentary: Present: clear, dry - Psychiatric Psychiatric: appropriate mood/affect, cooperative - Neurologic Neurologic: CNII-XII intact Results - Labs CBC & Chem 7: 06/30/16 05:58 06/30/16 05:58 Labs: Laboratory Last Values WBC 15.5 K/mm3 (4.5-11.0) H 06/30/16 05:58 RBC 3.34 M/mm3 (3.65-5.03) L 06/30/16 05:58 Hgb 10.1 gm/dl (10.1-14.3) 06/30/16 05:58 Hct 31.2 % (30.3-42.9) 06/30/16 05:58 MCV 93 fl (79-97) 06/30/16 05:58 MCH 30 pg (28-32) 06/30/16 05:58 MCHC 32 % (30-34) 06/30/16 05:58 RDW 14.9 % (13.2-15.2) 06/30/16 05:58 Plt Count 128 K/mm3 (140-440) L 06/30/16 05:58 Lymph % (Auto) 9.5 % (13.4-35.0) L 06/30/16 05:58 [place] % (Auto) 7.3 % (0.0-7.3) 06/30/16 05:58 Eos % (Auto) 0.5 % (0.0-4.3) 06/30/16 05:58 Baso % (Auto) 0.7 % (0.0-1.8) 06/30/16 05:58 Lymph # 1.5 K/mm3 (1.2-5.4) 06/30/16 05:58 [place] # 1.1 K/mm3 (0.0-0.8) H 06/30/16 05:58 Eos # 0.1 K/mm3 (0.0-0.4) 06/30/16 05:58 Baso # 0.1 K/mm3 (0.0-0.1) 06/30/16 05:58 Add Manual Diff Complete 06/29/16 13:48 Total Counted 100 06/29/16 13:48 Seg Neutrophils % 82.0 % (40.0-70.0) H 06/30/16 05:58 Seg Neuts % (Manual) 69.0 % (40.0-70.0) 06/29/16 13:48 Band Neutrophils % 22.0 % 06/29/16 13:48 Lymphocytes % (Manual) 4.0 % (13.4-35.0) L 06/29/16 13:48 Reactive Lymphs % (Man) 0 % 06/29/16 13:48 Monocytes % (Manual) 2.0 % (0.0-7.3) 06/29/16 13:48 Eosinophils % (Manual) 0 % (0.0-4.3) 06/29/16 13:48 Basophils % (Manual) 0 % (0.0-1.8) 06/29/16 00:25 Metamyelocytes % 3.0 % 06/29/16 13:48 Myelocytes % 0 % 06/29/16 13:48 Promyelocytes % 0 % 06/29/16 13:48 Blast Cells % 0 % 06/29/16 13:48 Nucleated RBC % Not Reportable 06/29/16 13:48 Seg Neutrophils # 12.7 K/mm3 (1.8-7.7) H 06/30/16 05:58 Seg Neutrophils # Man 16.1 K/mm3 (1.8-7.7) H 06/29/16 13:48 Band Neutrophils # 5.1 K/mm3 06/29/16 13:48 Lymphocytes # (Manual) 0.9 K/mm3 (1.2-5.4) L 06/29/16 13:48 Abs React Lymphs (Man) 0.0 K/mm3 06/29/16 13:48 Monocytes # (Manual) 0.5 K/mm3 (0.0-0.8) 06/29/16 13:48 Eosinophils # (Manual) 0.0 K/mm3 (0.0-0.4) 06/29/16 13:48 Basophils # (Manual) 0.0 K/mm3 (0.0-0.1) 06/29/16 13:48 Metamyelocytes # 0.7 K/mm3 06/29/16 13:48 Myelocytes # 0.0 K/mm3 06/29/16 13:48 Promyelocytes # 0.0 K/mm3 06/29/16 13:48 Blast Cells # 0.0 K/mm3 06/29/16 13:48 WBC Morphology Not Reportable 06/29/16 13:48 Hypersegmented Neuts Not Reportable 06/29/16 13:48 Hyposegmented Neuts Not Reportable 06/29/16 13:48 Hypogranular Neuts Not Reportable 06/29/16 13:48 Smudge Cells Not Reportable 06/29/16 13:48 Toxic Granulation Not Reportable 06/29/16 13:48 Toxic Vacuolation Not Reportable 06/29/16 13:48 Dohle Bodies Not Reportable 06/29/16 13:48 Pelger-Huet Anomaly Not Reportable 06/29/16 13:48 Basil Rods Not Reportable 06/29/16 13:48 Platelet Estimate Appears decreased 06/29/16 13:48 Clumped Platelets Not Reportable 06/29/16 13:48 Plt Clumps, EDTA Not Reportable 06/29/16 13:48 Large Platelets Not Reportable 06/29/16 13:48 Giant Platelets Not Reportable 06/29/16 13:48 Platelet Satelliting Not Reportable 06/29/16 13:48 Plt Morphology Comment Not Reportable 06/29/16 13:48 RBC Morphology Not Reportable 06/29/16 13:48 Dimorphic RBCs Not Reportable 06/29/16 13:48 Polychromasia Not Reportable 06/29/16 13:48 Hypochromasia Not Reportable 06/29/16 13:48 Poikilocytosis Not Reportable 06/29/16 13:48 Anisocytosis Few 06/29/16 13:48 Microcytosis Not Reportable 06/29/16 13:48 Macrocytosis Not Reportable 06/29/16 13:48 Spherocytes Not Reportable 06/29/16 13:48 Pappenheimer Bodies Not Reportable 06/29/16 13:48 Sickle Cells Not Reportable 06/29/16 13:48 Target Cells Not Reportable 06/29/16 13:48 Tear Drop Cells Not Reportable 06/29/16 13:48 Ovalocytes Not Reportable 06/29/16 13:48 Helmet Cells Not Reportable 06/29/16 13:48 [place] Bodies Not Reportable 06/29/16 13:48 [place] Rings Not Reportable 06/29/16 13:48 [place] Cells Not Reportable 06/29/16 13:48 Bite Cells Not Reportable 06/29/16 13:48 Crenated Cell Not Reportable 06/29/16 13:48 Elliptocytes Not Reportable 06/29/16 13:48 Acanthocytes (Spur) Not Reportable 06/29/16 13:48 Rouleaux Not Reportable 06/29/16 13:48 Hemoglobin C Crystals Not Reportable 06/29/16 13:48 Schistocytes Not Reportable 06/29/16 13:48 Malaria parasites Not Reportable 06/29/16 13:48 [place] Bodies Not Reportable 06/29/16 13:48 Hem Pathologist Commnt No 06/29/16 13:48 PT 13.3 Sec. (12.2-14.9) 06/29/16 02:25 INR 1.02 (0.87-1.13) 06/29/16 02:25 Sodium 140 mmol/L (137-145) 06/30/16 05:58 Potassium 3.4 mmol/L (3.6-5.0) L 06/30/16 05:58 Chloride 106.2 mmol/L (98-107) 06/30/16 05:58 Carbon Dioxide 21 mmol/L (22-30) L 06/30/16 05:58 Anion Gap 16 mmol/L 06/30/16 05:58 BUN 6 mg/dL (7-17) L 06/30/16 05:58 Creatinine 0.5 mg/dL (0.7-1.2) L 06/30/16 05:58 Estimated GFR > 60 ml/min 06/30/16 05:58 BUN/Creatinine Ratio 12.00 % 06/30/16 05:58 Glucose 105 mg/dL (65-100) H 06/30/16 05:58 Lactic Acid 1.6 mmol/L (0.7-2.0) 06/29/16 17:55 Calcium 7.1 mg/dL (8.4-10.2) L 06/30/16 05:58 Total Bilirubin 3.1 mg/dL (0.1-1.2) H 06/30/16 05:58 Direct Bilirubin 2.6 mg/dL (0-0.2) H 06/30/16 05:58 Indirect Bilirubin 0.5 mg/dL 06/30/16 05:58 AST 95 units/L (5-40) H 06/30/16 05:58 ALT 107 units/L (7-56) H 06/30/16 05:58 Alkaline Phosphatase 207 units/L (35-129) H 06/30/16 05:58 Troponin T < 0.010 ng/mL (0.00-0.029) 06/29/16 00:25 Total Protein 6.0 g/dL (6.3-8.2) L 06/30/16 05:58 Albumin 2.9 g/dL (3.9-5) L 06/30/16 05:58 Albumin/Globulin Ratio 0.9 % 06/30/16 05:58 Lipase 30 units/L (13-60) 06/29/16 00:25 HCG, Qual Negative (Negative) 06/29/16 00:25
[2016-07-02] MEDS: NACL 0.9% 1000 ML 1,000 ML IV SCH (07:34)
[2016-07-02] MEDS ORDERED: WATER FOR IRRIG STERILE IR ONE (14:11)
[2016-07-02] MEDS ORDERED: NACL 0.9% 100 ML ONE (14:11)
[2016-07-02] MEDS ORDERED: DIPRIVAN 10 MG/ML IV ONE ×5 (14:20)
--- NOTE | 2016-07-02 14:46 | Progress Note ---
Subjective Patient Reports: Positive: feels better, flatus, bowel movement Narrative: feels 70% better abd soft , for perc cholecystotomy Objective Vital Signs - 12hr 07/02/16 07/02/16 07/02/16 04:59 05:00 08:28 Temperature 98.2 F 101.0 F H Pulse Rate [ 105 H 88 98 H From Monitor] Respiratory 20 18 18 Rate Blood Pressure 109/58 123/70 [Left Arm] O2 Sat by Pulse 94 97 Oximetry 07/02/16 10:00 Temperature Pulse Rate [ From Monitor] Respiratory Rate Blood Pressure [Left Arm] O2 Sat by Pulse 94 Oximetry - Labs 06/30/16 05:58 06/30/16 05:58
[2016-07-02] MEDS ORDERED: SUBLIMAZE ONE (14:51)
[2016-07-02] MEDS ORDERED: NACL 0.9% 1000 ML 1,000 ML IV SCH (15:00)
[2016-07-02] MEDS ORDERED: PROVENTIL IH NR (15:00)
--- NOTE | 2016-07-02 16:18 | XRay Report ---
CHEST 2 VIEWS INDICATION: Evaluate for pneumonia. COMPARISON: 06/29/2016 FINDINGS: Frontal and lateral chest radiographs demonstrate new right mid to lower lung approximately 10 cm opacity. Mild left basilar atelectasis/pneumonia also now noted. Stable limited inspiration and cardiomediastinal silhouette. Small pleural effusions may be present. No CHF however. EKG leads. Stable bones. CONCLUSION: New bibasilar pneumonias, right greater than left. Small pleural effusions also not excluded. Thank you for the opportunity to participate in this patient's care.
--- NOTE | 2016-07-02 16:55 | Event Note ---
Date: 07/02/16 O2 sat on room air 84% decreased BS on left CXY ordered-- Bilateral pneumonia R>L discussed with GI MD and after discussing pros and cons of procedure he prefers to consult pulmonary and reschedule pt
--- NOTE | 2016-07-02 17:06 | Progress Note ---
Assessment and Plan 1. Choledocholithiasis/cholangitis - with known impacted stone in ampulla. 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 Clinically improving on abx. ERCP was to be done today, but cancelled due to new dx of pneumonia. - cont abx - give clears - monitor and if worsens, urgent ERCP or PTC for drainage - o/w, ERCP after ensuring appropriate risk modification 2. Pneumonia - new 10 cm lesion in R mid lung, possible aspiration. O2 sat'n 83% on RA. - will cancell ERCP - get Pulm consult Subjective Date of service: 07/02/16 Interval history: Pt feels well, with no abd pain. Has nonproductive cough intermittently. Hungry. Came down to GI lab for ERCP, which is being cancelled due to pneumonia. Objective - Constitutional Vitals: Vital Signs - 12hr 07/02/16 07/02/16 07/02/16 08:28 10:00 15:41 Temperature 101.0 F H 98.7 F Pulse Rate 103 H Pulse Rate [ 98 H From Monitor] Respiratory 18 14 Rate Blood Pressure 132/76 Blood Pressure 123/70 [Left Arm] O2 Sat by Pulse 97 94 96 Oximetry 07/02/16 15:46 Temperature 98.7 F Pulse Rate 103 H Pulse Rate [ From Monitor] Respiratory 14 Rate Blood Pressure 132/76 Blood Pressure [Left Arm] O2 Sat by Pulse 96 Oximetry General appearance: Present: no acute distress - EENT Eyes: PERRL, EOM intact ENT: hearing intact - Respiratory Respiratory effort: normal - Gastrointestinal General gastrointestinal: Present: soft, non-tender - Labs CBC & Chem 7: 06/30/16 05:58 06/30/16 05:58
--- NOTE | 2016-07-02 17:41 | Progress Note ---
Assessment and Plan - Patient Problems (1) Sepsis Current Visit: Yes Status: Acute Qualifiers: Sepsis type: S Plan to address problem: IV abx, ivf, supportive care, monitor uop q shift (2) Cholangitis Current Visit: Yes Status: Acute Plan to address problem: IV abx, supportive care, GI consulted, surgery consulted. (3) Cholecystitis Current Visit: Yes Status: Acute Plan to address problem: IV abx, surgery consulted, GI consulted, bowel rest, supportive care. (4) Choledocholithiasis Current Visit: Yes Status: Acute Plan to address problem: GI consulted, bowel rest, intervention as per GI team (5) Aspiration pneumonia Current Visit: Yes Status: Acute Qualifiers: Aspiration pneumonia type: A Laterality: L Lung location: L Plan to address problem: Pneumonia protocol: IV abx, supportive care, IVF, pulmonary toilet, pulmonary consulted. (6) Acute respiratory failure Current Visit: Yes Status: Acute Qualifiers: Respiratory failure complication: R Plan to address problem: supplemental oxygen, nebs, aspiration precautions, pulmonary consulted. (7) DVT prophylaxis Current Visit: Yes Status: Acute History Interval history: Pt lying in bed, Pt complains of abdominal pain. NO reported nursing events. Pt hypoxemic again today. CXR reveals likely aspiration pneumonia. Hospitalist Physical - Constitutional Vitals: Temp Pulse Resp BP Pulse Ox 98.7 F 103 H 14 132/76 96 07/02/16 15:46 07/02/16 15:46 07/02/16 15:46 07/02/16 15:46 07/02/16 15:46 General appearance: Present: no acute distress - EENT Eyes: Present: PERRL ENT: hearing intact - Neck Neck: Present: supple - Respiratory Respiratory: bilateral: diminished - Cardiovascular Rhythm: regular Heart Sounds: Present: S1 & S2 - Extremities Extremities: no ischemia Extremity abnormal: edema - Abdominal General gastrointestinal: soft, non-tender, non-distended - Integumentary Integumentary: Present: clear, warm, dry - Psychiatric Psychiatric: appropriate mood/affect, cooperative - Neurologic Neurologic: CNII-XII intact Results - Labs CBC & Chem 7: 06/30/16 05:58 06/30/16 05:58 Labs: Laboratory Last Values WBC 15.5 K/mm3 (4.5-11.0) H 06/30/16 05:58 RBC 3.34 M/mm3 (3.65-5.03) L 06/30/16 05:58 Hgb 10.1 gm/dl (10.1-14.3) 06/30/16 05:58 Hct 31.2 % (30.3-42.9) 06/30/16 05:58 MCV 93 fl (79-97) 06/30/16 05:58 MCH 30 pg (28-32) 06/30/16 05:58 MCHC 32 % (30-34) 06/30/16 05:58 RDW 14.9 % (13.2-15.2) 06/30/16 05:58 Plt Count 128 K/mm3 (140-440) L 06/30/16 05:58 Lymph % (Auto) 9.5 % (13.4-35.0) L 06/30/16 05:58 [place] % (Auto) 7.3 % (0.0-7.3) 06/30/16 05:58 Eos % (Auto) 0.5 % (0.0-4.3) 06/30/16 05:58 Baso % (Auto) 0.7 % (0.0-1.8) 06/30/16 05:58 Lymph # 1.5 K/mm3 (1.2-5.4) 06/30/16 05:58 [place] # 1.1 K/mm3 (0.0-0.8) H 06/30/16 05:58 Eos # 0.1 K/mm3 (0.0-0.4) 06/30/16 05:58 Baso # 0.1 K/mm3 (0.0-0.1) 06/30/16 05:58 Add Manual Diff Complete 06/29/16 13:48 Total Counted 100 06/29/16 13:48 Seg Neutrophils % 82.0 % (40.0-70.0) H 06/30/16 05:58 Seg Neuts % (Manual) 69.0 % (40.0-70.0) 06/29/16 13:48 Band Neutrophils % 22.0 % 06/29/16 13:48 Lymphocytes % (Manual) 4.0 % (13.4-35.0) L 06/29/16 13:48 Reactive Lymphs % (Man) 0 % 06/29/16 13:48 Monocytes % (Manual) 2.0 % (0.0-7.3) 06/29/16 13:48 Eosinophils % (Manual) 0 % (0.0-4.3) 06/29/16 13:48 Basophils % (Manual) 0 % (0.0-1.8) 06/29/16 00:25 Metamyelocytes % 3.0 % 06/29/16 13:48 Myelocytes % 0 % 06/29/16 13:48 Promyelocytes % 0 % 06/29/16 13:48 Blast Cells % 0 % 06/29/16 13:48 Nucleated RBC % Not Reportable 06/29/16 13:48 Seg Neutrophils # 12.7 K/mm3 (1.8-7.7) H 06/30/16 05:58 Seg Neutrophils # Man 16.1 K/mm3 (1.8-7.7) H 06/29/16 13:48 Band Neutrophils # 5.1 K/mm3 06/29/16 13:48 Lymphocytes # (Manual) 0.9 K/mm3 (1.2-5.4) L 06/29/16 13:48 Abs React Lymphs (Man) 0.0 K/mm3 06/29/16 13:48 Monocytes # (Manual) 0.5 K/mm3 (0.0-0.8) 06/29/16 13:48 Eosinophils # (Manual) 0.0 K/mm3 (0.0-0.4) 06/29/16 13:48 Basophils # (Manual) 0.0 K/mm3 (0.0-0.1) 06/29/16 13:48 Metamyelocytes # 0.7 K/mm3 06/29/16 13:48 Myelocytes # 0.0 K/mm3 06/29/16 13:48 Promyelocytes # 0.0 K/mm3 06/29/16 13:48 Blast Cells # 0.0 K/mm3 06/29/16 13:48 WBC Morphology Not Reportable 06/29/16 13:48 Hypersegmented Neuts Not Reportable 06/29/16 13:48 Hyposegmented Neuts Not Reportable 06/29/16 13:48 Hypogranular Neuts Not Reportable 06/29/16 13:48 Smudge Cells Not Reportable 06/29/16 13:48 Toxic Granulation Not Reportable 06/29/16 13:48 Toxic Vacuolation Not Reportable 06/29/16 13:48 Dohle Bodies Not Reportable 06/29/16 13:48 Pelger-Huet Anomaly Not Reportable 06/29/16 13:48 Basil Rods Not Reportable 06/29/16 13:48 Platelet Estimate Appears decreased 06/29/16 13:48 Clumped Platelets Not Reportable 06/29/16 13:48 Plt Clumps, EDTA Not Reportable 06/29/16 13:48 Large Platelets Not Reportable 06/29/16 13:48 Giant Platelets Not Reportable 06/29/16 13:48 Platelet Satelliting Not Reportable 06/29/16 13:48 Plt Morphology Comment Not Reportable 06/29/16 13:48 RBC Morphology Not Reportable 06/29/16 13:48 Dimorphic RBCs Not Reportable 06/29/16 13:48 Polychromasia Not Reportable 06/29/16 13:48 Hypochromasia Not Reportable 06/29/16 13:48 Poikilocytosis Not Reportable 06/29/16 13:48 Anisocytosis Few 06/29/16 13:48 Microcytosis Not Reportable 06/29/16 13:48 Macrocytosis Not Reportable 06/29/16 13:48 Spherocytes Not Reportable 06/29/16 13:48 Pappenheimer Bodies Not Reportable 06/29/16 13:48 Sickle Cells Not Reportable 06/29/16 13:48 Target Cells Not Reportable 06/29/16 13:48 Tear Drop Cells Not Reportable 06/29/16 13:48 Ovalocytes Not Reportable 06/29/16 13:48 Helmet Cells Not Reportable 06/29/16 13:48 [place] Bodies Not Reportable 06/29/16 13:48 [place] Rings Not Reportable 06/29/16 13:48 [place] Cells Not Reportable 06/29/16 13:48 Bite Cells Not Reportable 06/29/16 13:48 Crenated Cell Not Reportable 06/29/16 13:48 Elliptocytes Not Reportable 06/29/16 13:48 Acanthocytes (Spur) Not Reportable 06/29/16 13:48 Rouleaux Not Reportable 06/29/16 13:48 Hemoglobin C Crystals Not Reportable 06/29/16 13:48 Schistocytes Not Reportable 06/29/16 13:48 Malaria parasites Not Reportable 06/29/16 13:48 [place] Bodies Not Reportable 06/29/16 13:48 Hem Pathologist Commnt No 06/29/16 13:48 PT 13.3 Sec. (12.2-14.9) 06/29/16 02:25 INR 1.02 (0.87-1.13) 06/29/16 02:25 Sodium 140 mmol/L (137-145) 06/30/16 05:58 Potassium 3.4 mmol/L (3.6-5.0) L 06/30/16 05:58 Chloride 106.2 mmol/L (98-107) 06/30/16 05:58 Carbon Dioxide 21 mmol/L (22-30) L 06/30/16 05:58 Anion Gap 16 mmol/L 06/30/16 05:58 BUN 6 mg/dL (7-17) L 06/30/16 05:58 Creatinine 0.5 mg/dL (0.7-1.2) L 06/30/16 05:58 Estimated GFR > 60 ml/min 06/30/16 05:58 BUN/Creatinine Ratio 12.00 % 06/30/16 05:58 Glucose 105 mg/dL (65-100) H 06/30/16 05:58 Lactic Acid 1.6 mmol/L (0.7-2.0) 06/29/16 17:55 Calcium 7.1 mg/dL (8.4-10.2) L 06/30/16 05:58 Total Bilirubin 3.1 mg/dL (0.1-1.2) H 06/30/16 05:58 Direct Bilirubin 2.6 mg/dL (0-0.2) H 06/30/16 05:58 Indirect Bilirubin 0.5 mg/dL 06/30/16 05:58 AST 95 units/L (5-40) H 06/30/16 05:58 ALT 107 units/L (7-56) H 06/30/16 05:58 Alkaline Phosphatase 207 units/L (35-129) H 06/30/16 05:58 Troponin T < 0.010 ng/mL (0.00-0.029) 06/29/16 00:25 Total Protein 6.0 g/dL (6.3-8.2) L 06/30/16 05:58 Albumin 2.9 g/dL (3.9-5) L 06/30/16 05:58 Albumin/Globulin Ratio 0.9 % 06/30/16 05:58 Lipase 30 units/L (13-60) 06/29/16 00:25 HCG, Qual Negative (Negative) 06/29/16 00:25
[2016-07-02 21:53] LABS: Albumin 3.1 g/dL (3.9-5); Albumin/Globulin Ratio 0.8 %; Bilirubin,Direct 1.4 mg/dL (0-0.2); Bilirubin,Total 2.4 mg/dL (0.1-1.2); Total Protein 6.8 g/dL (6.3-8.2)
[2016-07-02 22:34] LABS: Basophils % (Auto) 0.8 % (0.0-1.8); Eosinophils % (Auto) 1.6 % (0.0-4.3); Hematocrit 29.7 % (30.3-42.9); Hemoglobin 9.8 gm/dl (10.1-14.3); Mean Corpuscular HGB Conc 33 % (30-34); Mean Corpuscular Hemoglobin 31 pg (28-32); Mean Corpuscular Volume 93 fl (79-97); Platelet Count 142 K/mm3 (140-440); Red Blood Count 3.21 M/mm3 (3.65-5.03); Red Cell Distribution Width 14.9 % (13.2-15.2); White Blood Count 9.9 K/mm3 (4.5-11.0)
[2016-07-02] MEDS: MAXIPIME/NS 2 GM/100 ML 2 GM/100 ML BAG IV SCH (23:11)
[2016-07-03] MEDS: ZOSYN/NS 4.5GM/100ML 4.5 GM/100 ML VIAL IV SCH ×4 (01:40→23:10)
[2016-07-03] MEDS: NACL 0.9% 1000 ML 1,000 ML IV SCH ×3 (01:41→18:27)
[2016-07-03] MEDS: MAXIPIME/NS 2 GM/100 ML 2 GM/100 ML BAG IV SCH (08:12)
[2016-07-03] MEDS: TYLENOL PO PRN (10:09)
--- NOTE | 2016-07-03 12:35 | Consultation ---
History of Present Illness Consult date: 07/03/16 Reason for consult: pneumonia, abnormal CXR/CT History of present illness: Called to evaluate case of a 36-year-old female, admitted to the hospital 4 days ago with history of coughing episodes associated with abdominal discomfort and suspected cholecystitis. The patient had been admitted and evaluated with findings suspicious for cholangitis recurrence of GI notes. She reportedly underwent an EDG on Saturday and according to family members she has some respiratory problems associated with the procedure. She had no vomiting episodes. She also presented with a nonproductive cough but no fever or prodromal respiratory symptoms reported. She is a chronic active smoker of 1 pack cigarettes per day possibly more. Denies any history of asthma COPD. On initial admission x-ray showed mild chest congestion, follow-up x-ray now shows bibasilar ill-defined infiltrates. No fever at this time. Chart review shows that the patient case was canceled after noted with "copious secretions with laryngospasm requiring LMA placement" and albuterol nebulization at PACU Blood culture shows Escherichia coli 2. Called to evaluate due to suspected pneumonia. Family medical history is remarkable for DiGeorge syndrome Past History Past Medical History: No medical history, other (denies prior history of asthma) . denies: COPD Past Surgical History: Other (c/s) Social history: smoking. denies: alcohol abuse Family history: no significant family history Medications and Allergies Allergies Allergy/AdvReac Type Severity Reaction Status Date / Time No Known Allergies Allergy Verified 06/29/16 00:01 Active Meds: Active Medications Acetaminophen (Tylenol) 650 mg PO Q4H PRN PRN Reason: Pain MILD(1-3)/Fever >100.5/KING Last Admin: 07/03/16 10:09 Dose: 650 mg Bisacodyl (Dulcolax) 10 mg [place] QDAY PRN PRN Reason: Constipation unrelieved by MOM Sodium Chloride (Nacl 0.9% 1000 Ml) 1,000 mls @ 150 mls/hr IV DIRECT ROHAN Last Admin: 07/03/16 10:08 Dose: 150 mls/hr Piperacillin Sod/Tazobactam Sod (Zosyn/Ns 4.5gm/100ml) 4.5 gm in 100 mls @ 200 mls/hr IV Q8HR ROHAN Last Admin: 07/03/16 05:30 Dose: 200 mls/hr Cefepime HCl (Maxipime/Ns 2 Gm/100 Ml) 2 gm in 100 mls @ 200 mls/hr IV Q12H [facility] PRN Reason: Protocol Last Admin: 07/03/16 08:12 Dose: 200 mls/hr Magnesium Hydroxide (Milk Of Magnesia) 30 ml PO Q4H PRN PRN Reason: Constipation Morphine Sulfate (Morphine) 2 mg IV Q4H PRN PRN Reason: Pain, Moderate (4-6) Last Admin: 07/02/16 13:25 Dose: 2 mg Ondansetron HCl (Zofran) 4 mg IV Q4H PRN PRN Reason: N/V unrelieved by Reglan Last Admin: 07/02/16 08:08 Dose: 4 mg Zolpidem Tartrate (Ambien) 10 mg PO QHS [facility] Review of Systems Constitutional: malaise, no weight loss, no weight gain, no fever, no chills, no sweats, no night sweats Cardiovascular: no chest pain, no orthopnea, no palpitations, no rapid/ irregular heart beat, no edema Respiratory: cough Gastrointestinal: abdominal pain, nausea, loss of appetite, no vomiting, no diarrhea, no constipation, no hematemesis, no coffee ground emesis, no melena, no hematochezia, no heartburn Integumentary: deferred Neurological: no head injury, no transient paralysis, no paralysis, no weakness , no parathesias, no numbness, no headaches Psychiatric: change in sleep habits, other (denies snoring or sleep apnea) Physical Examination Vital signs: Vital Signs Temp Pulse Resp BP Pulse Ox 99.2 F 122 H 24 98/50 100 06/28/16 23:58 06/28/16 23:58 06/28/16 23:58 06/28/16 23:58 06/28/16 23:58 General appearance: no acute distress, alert, other (obese) ENT: oropharynx moist, other (Mallampati 3) Neck: no lymphadenopathy Ascultation: Bilateral: rales (fine, bibasilar posterior) Percussion: Bilateral: not dull Gastrointestinal: normoactive bowel sounds, soft, non-tender, non-distended, other (obese) Integumentary: normal Extremities: no cyanosis, no edema Musculoskeletal: no deformities normal mental status, non-focal exam, CN II-XII normal Results - Laboratory Findings CBC and BMP: 07/02/16 20:53 06/30/16 05:58 PT/INR, D-dimer PT 13.3 Sec. (12.2-14.9) 06/29/16 02:25 INR 1.02 (0.87-1.13) 06/29/16 02:25 Abnormal lab findings: Abnormal Labs 06/29/16 06/29/16 06/29/16 06:17 09:41 13:48 WBC 23.3 H RBC 3.35 L Hgb Hct Plt Count Lymph % (Auto) [place] % (Auto) [place] # Seg Neutrophils % Lymphocytes % (Manual) 4.0 L Seg Neutrophils # Seg Neutrophils # Man 16.1 H Lymphocytes # (Manual) 0.9 L Potassium Carbon Dioxide BUN Creatinine Glucose Lactic Acid 4.0 H* 3.0 H* Calcium Total Bilirubin Direct Bilirubin AST ALT Alkaline Phosphatase Total Protein Albumin 06/29/16 06/30/16 06/30/16 13:48 05:58 05:58 WBC 15.5 H RBC 3.34 L Hgb Hct Plt Count 128 L Lymph % (Auto) 9.5 L [place] % (Auto) [place] # 1.1 H Seg Neutrophils % 82.0 H Lymphocytes % (Manual) Seg Neutrophils # 12.7 H Seg Neutrophils # Man Lymphocytes # (Manual) Potassium 3.4 L Carbon Dioxide 21 L BUN 6 L Creatinine 0.6 L 0.5 L Glucose 165 H 105 H Lactic Acid Calcium 7.5 L D 7.1 L Total Bilirubin 3.9 H 3.2 H Direct Bilirubin AST 148 H 93 H ALT 136 H 107 H Alkaline Phosphatase 222 H 207 H Total Protein 6.2 L D 6.1 L Albumin 3.1 L 3.0 L 06/30/16 07/02/16 07/02/16 05:58 20:53 20:53 WBC RBC 3.21 L Hgb 9.8 L Hct 29.7 L Plt Count Lymph % (Auto) [place] % (Auto) 10.6 H [place] # 1.1 H Seg Neutrophils % 71.5 H Lymphocytes % (Manual) Seg Neutrophils # Seg Neutrophils # Man Lymphocytes # (Manual) Potassium Carbon Dioxide BUN Creatinine Glucose Lactic Acid Calcium Total Bilirubin 3.1 H 2.4 H Direct Bilirubin 2.6 H 1.4 H AST 95 H ALT 107 H Alkaline Phosphatase 207 H 314 H Total Protein 6.0 L Albumin 2.9 L 3.1 L - Diagnostic Findings Chest x-ray: report reviewed, image reviewed Assessment and Plan Pulmonary infiltrates in the context of coughing episodes and acute cholangitis. Differential diagnosis includes possible aspiration pneumonia, community-acquired pneumonia (no prodromal symptoms). Also a ALI/ARDS variant in the setting of gram-negative sepsis is a consideration Acute cholangitis. Escherichia coli sepsis Tobacco abuse. Early COPD a consideration Episode of laryngospasm Obesity. GIA? Recommendations Continue with the cefepime or Zosyn at this point, according to cultures and completed 10 days. Consider adding Levaquin if community-acquired pneumonia is a concern GIA precautions if endoscopy or IV sedation is considered Albuterol 2.5 mg nebulization every 6 hours
--- NOTE | 2016-07-03 14:56 | Progress Note ---
Subjective Patient Reports: Positive: feels better, bowel movement Narrative: looks and feels much better , evaluated by pulmunology will cont same awaiting ERCP , Objective Vital Signs - 12hr 07/03/16 07/03/16 07/03/16 08:00 08:01 10:00 Temperature 99.3 F Pulse Rate [ 83 From Monitor] Respiratory 18 18 Rate Blood Pressure 114/55 [Right Arm] O2 Sat by Pulse 99 95 Oximetry - Labs 07/02/16 20:53 06/30/16 05:58 Diabetes panel 07/02/16 Range/Units 20:53 AST 36 (5-40) units/L ALT 53 (7-56) units/L Alkaline Phosphatase 314 H (35-129) units/L Total Protein 6.8 (6.3-8.2) g/dL Albumin 3.1 L (3.9-5) g/dL Calcium panel 07/02/16 Range/Units 20:53 Albumin 3.1 L (3.9-5) g/dL Adrenal panel 07/02/16 Range/Units 20:53 Total Bilirubin 2.4 H (0.1-1.2) mg/dL AST 36 (5-40) units/L ALT 53 (7-56) units/L Alkaline Phosphatase 314 H (35-129) units/L Total Protein 6.8 (6.3-8.2) g/dL Albumin 3.1 L (3.9-5) g/dL
--- NOTE | 2016-07-03 15:18 | Progress Note ---
Assessment and Plan 1. Choledocholithiasis/cholangitis - with known impacted stone in ampulla. 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 Clinically improving on abx. ERCP was to be done today, but cancelled due to new dx of pneumonia. - cont abx - give clears - ERCP tentatively 07/05, once improved pulmonary-mast 2. Pneumonia - Pulm consult noted. - will defer management to them. Once they and Anesthesia agree, will do ERCP. Subjective Date of service: 07/03/16 Interval history: Pt feels well. Complains of chest pain with cough. No abd pain, N/V. Objective - Constitutional Vitals: Vital Signs - 12hr 07/03/16 07/03/16 07/03/16 08:00 08:01 10:00 Temperature 99.3 F Pulse Rate [ 83 From Monitor] Respiratory 18 18 Rate Blood Pressure 114/55 [Right Arm] O2 Sat by Pulse 99 95 Oximetry General appearance: Present: no acute distress - EENT Eyes: PERRL, EOM intact ENT: hearing intact - Neck Neck: supple - Respiratory Respiratory effort: normal Respiratory: bilateral: CTA (no clear crackles or wheezes noted) - Gastrointestinal General gastrointestinal: Present: soft, tender (Mild in epigastrium/RUQ) - Labs CBC & Chem 7: 07/02/16 20:53 06/30/16 05:58 Labs: Abnormal lab results 07/02/16 07/02/16 Range/Units 20:53 20:53 RBC 3.21 L (3.65-5.03) M/mm3 Hgb 9.8 L (10.1-14.3) gm/dl Hct 29.7 L (30.3-42.9) % [place] % (Auto) 10.6 H (0.0-7.3) % [place] # 1.1 H (0.0-0.8) K/mm3 Seg Neutrophils % 71.5 H (40.0-70.0) % Total Bilirubin 2.4 H (0.1-1.2) mg/dL Direct Bilirubin 1.4 H (0-0.2) mg/dL Alkaline Phosphatase 314 H (35-129) units/L Albumin 3.1 L (3.9-5) g/dL
[2016-07-03] MEDS ORDERED: XANAX PO PRN (16:02)
--- NOTE | 2016-07-03 16:39 | Progress Note ---
Assessment and Plan - Patient Problems (1) Acute respiratory failure Current Visit: Yes Status: Acute Qualifiers: Respiratory failure complication: R Plan to address problem: Acute respiratory failure secondary to aspiration pneumonia places been placed on Zosyn and Levaquin. Seem to be stable no evidence of sepsis no fever no white count. Follow blood culture data. (2) Aspiration pneumonia Current Visit: Yes Status: Acute Qualifiers: Aspiration pneumonia type: A Laterality: L Lung location: L Plan to address problem: Cover with antibodies continue nebulizes IV anabiotic's supportive care (3) Choledocholithiasis Current Visit: Yes Status: Acute Plan to address problem: Unable to get ERCP today patient would known impacted stone there still has abdominal pain. We'll treat sepsis a try to obtain additional ERCP on . (4) Sepsis Current Visit: Yes Status: Acute Qualifiers: Sepsis type: S Plan to address problem: Solving recurrent anabiotic coverage. History Interval history: Patient looks to be in a good state of health today. Patient concerned that she could not sleep states she's very tired. Ambien did not work she states. Patient had ERCP cancer today secondary to pneumonia patient did not tolerate procedure. Hospitalist Physical - Constitutional Vitals: Temp Pulse Resp BP Pulse Ox 99 F 83 20 114/82 95 07/03/16 15:43 07/03/16 15:43 07/03/16 15:43 07/03/16 15:43 07/03/16 10:00 General appearance: Present: no acute distress - EENT Eyes: Present: PERRL, EOM intact ENT: hearing intact, dentition normal - Neck Neck: Present: supple, normal ROM - Respiratory Respiratory effort: normal Respiratory: right: rhonchi - Cardiovascular Rhythm: regular - Extremities Extremities: no ischemia, pulses intact, pulses symmetrical, No edema, normal temperature Peripheral Pulses: within normal limits - Abdominal General gastrointestinal: tender, non-distended, normal bowel sounds - Integumentary Integumentary: Present: clear, warm, dry - Psychiatric Psychiatric: appropriate mood/affect, cooperative - Neurologic Neurologic: CNII-XII intact Results - Labs CBC & Chem 7: 07/02/16 20:53 06/30/16 05:58 Labs: Laboratory Last Values WBC 9.9 K/mm3 (4.5-11.0) 07/02/16 20:53 RBC 3.21 M/mm3 (3.65-5.03) L 07/02/16 20:53 Hgb 9.8 gm/dl (10.1-14.3) L 07/02/16 20:53 Hct 29.7 % (30.3-42.9) L 07/02/16 20:53 MCV 93 fl (79-97) 07/02/16 20:53 MCH 31 pg (28-32) 07/02/16 20:53 MCHC 33 % (30-34) 07/02/16 20:53 RDW 14.9 % (13.2-15.2) 07/02/16 20:53 Plt Count 142 K/mm3 (140-440) 07/02/16 20:53 Lymph % (Auto) 15.5 % (13.4-35.0) 07/02/16 20:53 [place] % (Auto) 10.6 % (0.0-7.3) H 07/02/16 20:53 Eos % (Auto) 1.6 % (0.0-4.3) 07/02/16 20:53 Baso % (Auto) 0.8 % (0.0-1.8) 07/02/16 20:53 Lymph # 1.5 K/mm3 (1.2-5.4) 07/02/16 20:53 [place] # 1.1 K/mm3 (0.0-0.8) H 07/02/16 20:53 Eos # 0.2 K/mm3 (0.0-0.4) 07/02/16 20:53 Baso # 0.1 K/mm3 (0.0-0.1) 07/02/16 20:53 Add Manual Diff Complete 06/29/16 13:48 Total Counted 100 06/29/16 13:48 Seg Neutrophils % 71.5 % (40.0-70.0) H 07/02/16 20:53 Seg Neuts % (Manual) 69.0 % (40.0-70.0) 06/29/16 13:48 Band Neutrophils % 22.0 % 06/29/16 13:48 Lymphocytes % (Manual) 4.0 % (13.4-35.0) L 06/29/16 13:48 Reactive Lymphs % (Man) 0 % 06/29/16 13:48 Monocytes % (Manual) 2.0 % (0.0-7.3) 06/29/16 13:48 Eosinophils % (Manual) 0 % (0.0-4.3) 06/29/16 13:48 Basophils % (Manual) 0 % (0.0-1.8) 06/29/16 00:25 Metamyelocytes % 3.0 % 06/29/16 13:48 Myelocytes % 0 % 06/29/16 13:48 Promyelocytes % 0 % 06/29/16 13:48 Blast Cells % 0 % 06/29/16 13:48 Nucleated RBC % Not Reportable 06/29/16 13:48 Seg Neutrophils # 7.1 K/mm3 (1.8-7.7) 07/02/16 20:53 Seg Neutrophils # Man 16.1 K/mm3 (1.8-7.7) H 06/29/16 13:48 Band Neutrophils # 5.1 K/mm3 06/29/16 13:48 Lymphocytes # (Manual) 0.9 K/mm3 (1.2-5.4) L 06/29/16 13:48 Abs React Lymphs (Man) 0.0 K/mm3 06/29/16 13:48 Monocytes # (Manual) 0.5 K/mm3 (0.0-0.8) 06/29/16 13:48 Eosinophils # (Manual) 0.0 K/mm3 (0.0-0.4) 06/29/16 13:48 Basophils # (Manual) 0.0 K/mm3 (0.0-0.1) 06/29/16 13:48 Metamyelocytes # 0.7 K/mm3 06/29/16 13:48 Myelocytes # 0.0 K/mm3 06/29/16 13:48 Promyelocytes # 0.0 K/mm3 06/29/16 13:48 Blast Cells # 0.0 K/mm3 06/29/16 13:48 WBC Morphology Not Reportable 06/29/16 13:48 Hypersegmented Neuts Not Reportable 06/29/16 13:48 Hyposegmented Neuts Not Reportable 06/29/16 13:48 Hypogranular Neuts Not Reportable 06/29/16 13:48 Smudge Cells Not Reportable 06/29/16 13:48 Toxic Granulation Not Reportable 06/29/16 13:48 Toxic Vacuolation Not Reportable 06/29/16 13:48 Dohle Bodies Not Reportable 06/29/16 13:48 Pelger-Huet Anomaly Not Reportable 06/29/16 13:48 Basil Rods Not Reportable 06/29/16 13:48 Platelet Estimate Appears decreased 06/29/16 13:48 Clumped Platelets Not Reportable 06/29/16 13:48 Plt Clumps, EDTA Not Reportable 06/29/16 13:48 Large Platelets Not Reportable 06/29/16 13:48 Giant Platelets Not Reportable 06/29/16 13:48 Platelet Satelliting Not Reportable 06/29/16 13:48 Plt Morphology Comment Not Reportable 06/29/16 13:48 RBC Morphology Not Reportable 06/29/16 13:48 Dimorphic RBCs Not Reportable 06/29/16 13:48 Polychromasia Not Reportable 06/29/16 13:48 Hypochromasia Not Reportable 06/29/16 13:48 Poikilocytosis Not Reportable 06/29/16 13:48 Anisocytosis Few 06/29/16 13:48 Microcytosis Not Reportable 06/29/16 13:48 Macrocytosis Not Reportable 06/29/16 13:48 Spherocytes Not Reportable 06/29/16 13:48 Pappenheimer Bodies Not Reportable 06/29/16 13:48 Sickle Cells Not Reportable 06/29/16 13:48 Target Cells Not Reportable 06/29/16 13:48 Tear Drop Cells Not Reportable 06/29/16 13:48 Ovalocytes Not Reportable 06/29/16 13:48 Helmet Cells Not Reportable 06/29/16 13:48 Cabrera-Walthall Bodies Not Reportable 06/29/16 13:48 [place] Rings Not Reportable 06/29/16 13:48 Jennifer Cells Not Reportable 06/29/16 13:48 Bite Cells Not Reportable 06/29/16 13:48 Crenated Cell Not Reportable 06/29/16 13:48 Elliptocytes Not Reportable 06/29/16 13:48 Acanthocytes (Spur) Not Reportable 06/29/16 13:48 Rouleaux Not Reportable 06/29/16 13:48 Hemoglobin C Crystals Not Reportable 06/29/16 13:48 Schistocytes Not Reportable 06/29/16 13:48 Malaria parasites Not Reportable 06/29/16 13:48 Harley Bodies Not Reportable 06/29/16 13:48 Hem Pathologist Commnt No 06/29/16 13:48 PT 13.3 Sec. (12.2-14.9) 06/29/16 02:25 INR 1.02 (0.87-1.13) 06/29/16 02:25 Sodium 140 mmol/L (137-145) 06/30/16 05:58 Potassium 3.4 mmol/L (3.6-5.0) L 06/30/16 05:58 Chloride 106.2 mmol/L (98-107) 06/30/16 05:58 Carbon Dioxide 21 mmol/L (22-30) L 06/30/16 05:58 Anion Gap 16 mmol/L 06/30/16 05:58 BUN 6 mg/dL (7-17) L 06/30/16 05:58 Creatinine 0.5 mg/dL (0.7-1.2) L 06/30/16 05:58 Estimated GFR > 60 ml/min 06/30/16 05:58 BUN/Creatinine Ratio 12.00 % 06/30/16 05:58 Glucose 105 mg/dL (65-100) H 06/30/16 05:58 Lactic Acid 1.6 mmol/L (0.7-2.0) 06/29/16 17:55 Calcium 7.1 mg/dL (8.4-10.2) L 06/30/16 05:58 Total Bilirubin 2.4 mg/dL (0.1-1.2) H 07/02/16 20:53 Direct Bilirubin 1.4 mg/dL (0-0.2) H 07/02/16 20:53 Indirect Bilirubin 1.0 mg/dL 07/02/16 20:53 AST 36 units/L (5-40) 07/02/16 20:53 ALT 53 units/L (7-56) 07/02/16 20:53 Alkaline Phosphatase 314 units/L (35-129) H 07/02/16 20:53 Troponin T < 0.010 ng/mL (0.00-0.029) 06/29/16 00:25 Total Protein 6.8 g/dL (6.3-8.2) 07/02/16 20:53 Albumin 3.1 g/dL (3.9-5) L 07/02/16 20:53 Albumin/Globulin Ratio 0.8 % 07/02/16 20:53 Lipase 30 units/L (13-60) 06/29/16 00:25 HCG, Qual Negative (Negative) 06/29/16 00:25
[2016-07-03] MEDS: LEVAQUIN 750MG/150ML 750 MG/150 ML BAG IV SCH (20:29)
[2016-07-03] MEDS: MORPHINE IV PRN (20:30)
[2016-07-03] MEDS: AMBIEN PO SCH (23:10)
[2016-07-04] MEDS: NACL 0.9% 1000 ML 1,000 ML IV SCH ×2 (03:30→10:07)
[2016-07-04] MEDS: ZOSYN/NS 4.5GM/100ML 4.5 GM/100 ML VIAL IV SCH ×2 (05:08→15:56)
[2016-07-04 06:06] LABS: Basophils % (Auto) 0.5 % (0.0-1.8); Eosinophils % (Auto) 3.3 % (0.0-4.3); Hematocrit 27.2 % (30.3-42.9); Hemoglobin 9.1 gm/dl (10.1-14.3); Mean Corpuscular HGB Conc 34 % (30-34); Mean Corpuscular Hemoglobin 31 pg (28-32); Mean Corpuscular Volume 93 fl (79-97); Platelet Count 139 K/mm3 (140-440); Red Blood Count 2.93 M/mm3 (3.65-5.03); Red Cell Distribution Width 14.5 % (13.2-15.2); White Blood Count 8.3 K/mm3 (4.5-11.0)
[2016-07-04 06:22] LABS: Anion Gap 17 mmol/L; Blood Urea Nitrogen 2 mg/dL (7-17); Calcium 7.6 mg/dL (8.4-10.2); Carbon Dioxide 26 mmol/L (22-30); Chloride 100.4 mmol/L (98-107); Glucose 96 mg/dL (65-100); Potassium 3.4 mmol/L (3.6-5.0); Sodium 140 mmol/L (137-145)
[2016-07-04] MEDS: LEVAQUIN 750MG/150ML 750 MG/150 ML BAG IV SCH (10:00)
--- NOTE | 2016-07-04 12:10 | Progress Note ---
Assessment and Plan Pulmonary infiltrates in the context of coughing episodes and acute cholangitis. Acute cholangitis. Pneumonia. Minimal findings, WBC improving Escherichia coli sepsis. WBC improving Tobacco abuse. Early COPD a consideration Episode of laryngospasm Obesity. GIA? Recommendations I am updating chest x-rays and ABGs. GIA precautions if endoscopy or IV sedation to be done Albuterol 2.5 mg nebulization every 6 hours IV Solu Medrol If no additional findings and she remains in good respiratory status during the day, the patient could be scheduled for endoscopic procedure tomorrow. Discussed with pt. I have discussed my prior recommendations with both anesthesia and GI and will follow from a respiratory standpoint, after procedure is completed. Subjective Date of service: 07/04/16 Principal diagnosis: hypoxemia, laryngospasm episode, cholangitis COPD Interval history: No respiratory changes this morning. Some coughing Objective Vital Signs - 12hr 07/04/16 07/04/16 07/04/16 08:21 08:40 09:00 Temperature 98.3 F Pulse Rate [ 76 From Monitor] Respiratory 18 18 Rate Respiratory 18 Rate [Head] Blood Pressure 117/83 [Right Arm] O2 Sat by Pulse 96 98 Oximetry Constitutional: no acute distress, alert, other (obese) ENT: oropharynx moist, other (Mallampati 3) Neck: no lymphadenopathy Ascultation: Bilateral: rales (fine, bibasilar posterior,minimal. No wheezes or rhonchi) Percussion: Bilateral: not dull Gastrointestinal: normoactive bowel sounds, soft, non-tender, non-distended, other (obese) Integumentary: normal Extremities: no cyanosis, no edema Neurologic: normal mental status, non-focal exam, CN II-XII normal CBC and BMP: 07/04/16 05:10 07/04/16 05:10 ABG, PT/INR, D-dimer: PT/INR, D-dimer PT 13.3 Sec. (12.2-14.9) 06/29/16 02:25 INR 1.02 (0.87-1.13) 06/29/16 02:25 Abnormal lab findings: Abnormal Labs 06/29/16 06/29/16 06/29/16 06:17 09:41 13:48 WBC 23.3 H RBC 3.35 L Hgb Hct Plt Count Lymph % (Auto) [place] % (Auto) Morton # Seg Neutrophils % Lymphocytes % (Manual) 4.0 L Seg Neutrophils # Seg Neutrophils # Man 16.1 H Lymphocytes # (Manual) 0.9 L Potassium Carbon Dioxide BUN Creatinine Glucose Lactic Acid 4.0 H* 3.0 H* Calcium Total Bilirubin Direct Bilirubin AST ALT Alkaline Phosphatase Total Protein Albumin 06/29/16 06/30/16 06/30/16 13:48 05:58 05:58 WBC 15.5 H RBC 3.34 L Hgb Hct Plt Count 128 L Lymph % (Auto) 9.5 L [place] % (Auto) Morton # 1.1 H Seg Neutrophils % 82.0 H Lymphocytes % (Manual) Seg Neutrophils # 12.7 H Seg Neutrophils # Man Lymphocytes # (Manual) Potassium 3.4 L Carbon Dioxide 21 L BUN 6 L Creatinine 0.6 L 0.5 L Glucose 165 H 105 H Lactic Acid Calcium 7.5 L D 7.1 L Total Bilirubin 3.9 H 3.2 H Direct Bilirubin AST 148 H 93 H ALT 136 H 107 H Alkaline Phosphatase 222 H 207 H Total Protein 6.2 L D 6.1 L Albumin 3.1 L 3.0 L 06/30/16 07/02/16 07/02/16 05:58 20:53 20:53 WBC RBC 3.21 L Hgb 9.8 L Hct 29.7 L Plt Count Lymph % (Auto) [place] % (Auto) 10.6 H [place] # 1.1 H Seg Neutrophils % 71.5 H Lymphocytes % (Manual) Seg Neutrophils # Seg Neutrophils # Man Lymphocytes # (Manual) Potassium Carbon Dioxide BUN Creatinine Glucose Lactic Acid Calcium Total Bilirubin 3.1 H 2.4 H Direct Bilirubin 2.6 H 1.4 H AST 95 H ALT 107 H Alkaline Phosphatase 207 H 314 H Total Protein 6.0 L Albumin 2.9 L 3.1 L 07/04/16 07/04/16 05:10 05:10 WBC RBC 2.93 L Hgb 9.1 L Hct 27.2 L Plt Count 139 L Lymph % (Auto) [place] % (Auto) 11.8 H [place] # 1.0 H Seg Neutrophils % Lymphocytes % (Manual) Seg Neutrophils # Seg Neutrophils # Man Lymphocytes # (Manual) Potassium 3.4 L Carbon Dioxide BUN 2 L Creatinine 0.5 L Glucose Lactic Acid Calcium 7.6 L Total Bilirubin Direct Bilirubin AST ALT Alkaline Phosphatase Total Protein Albumin
--- NOTE | 2016-07-04 12:11 | Progress Note ---
Subjective Narrative: looks and feels better .awaiting GI studies ,ambulatory , I indicated to Pt to call me if she goes home . Objective Vital Signs - 12hr 07/04/16 07/04/16 07/04/16 08:21 08:40 09:00 Temperature 98.3 F Pulse Rate [ 76 From Monitor] Respiratory 18 18 Rate Respiratory 18 Rate [Head] Blood Pressure 117/83 [Right Arm] O2 Sat by Pulse 96 98 Oximetry - Labs 07/04/16 05:10 07/04/16 05:10 Diabetes panel 07/04/16 Range/Units 05:10 Sodium 140 (137-145) mmol/L Potassium 3.4 L (3.6-5.0) mmol/L Chloride 100.4 (98-107) mmol/L Carbon Dioxide 26 (22-30) mmol/L BUN 2 L (7-17) mg/dL Creatinine 0.5 L (0.7-1.2) mg/dL Glucose 96 (65-100) mg/dL Calcium 7.6 L (8.4-10.2) mg/dL Calcium panel 07/04/16 Range/Units 05:10 Calcium 7.6 L (8.4-10.2) mg/dL Pituitary panel 07/04/16 Range/Units 05:10 Sodium 140 (137-145) mmol/L Potassium 3.4 L (3.6-5.0) mmol/L Chloride 100.4 (98-107) mmol/L Carbon Dioxide 26 (22-30) mmol/L BUN 2 L (7-17) mg/dL Creatinine 0.5 L (0.7-1.2) mg/dL Glucose 96 (65-100) mg/dL Calcium 7.6 L (8.4-10.2) mg/dL Adrenal panel 07/04/16 Range/Units 05:10 Sodium 140 (137-145) mmol/L Potassium 3.4 L (3.6-5.0) mmol/L Chloride 100.4 (98-107) mmol/L Carbon Dioxide 26 (22-30) mmol/L BUN 2 L (7-17) mg/dL Creatinine 0.5 L (0.7-1.2) mg/dL Glucose 96 (65-100) mg/dL Calcium 7.6 L (8.4-10.2) mg/dL
[2016-07-04 14:28] LABS: ISTAT Base Excess 6; ISTAT HCO3 30.6; ISTAT PCO2 44.8 (35-45); ISTAT PH 7.442 (7.35-7.45); ISTAT PO2 97 (80-105); ISTAT SO2 98; ISTAT TCO2 32
--- NOTE | 2016-07-04 14:36 | XRay Report ---
AP chest History: Followup pneumonia. Findings: Patchy infiltrate in the right infrahilar region has nearly resolved. The left lung remains generally clear. No large pleural effusion or pneumothorax. Heart and mediastinal structures remain within normal limits. Impression: Improvement in the right lung infiltrate since 07/02/16.
--- NOTE | 2016-07-04 14:52 | Gastroenterology Progress Note ---
Assessment and Plan 1. Cholangitis 2. Choledocholithiasis 3. Cholecystitis 4. PNA 5. E coli Bacteremia -Continue Zosyn/Levquin -I have discontinued Lovenox SQ -PT/INR?CBC in AM -NPO after MN -WBC WNL -IF patient is cleared by Pulmonology will proceed with ERCP tomorrow. Subjective Date of service: 07/04/16 Principal diagnosis: hypoxemia, laryngospasm episode, cholangitis COPD Interval history: No acute distress. Patient denies pain at current time. Objective - Constitutional Vitals: Temp Pulse Resp BP Pulse Ox 98.6 F 81 18 111/88 98 07/04/16 12:00 07/04/16 12:00 07/04/16 12:00 07/04/16 12:00 07/04/16 12:00 General appearance: no acute distress - EENT Eyes: EOM intact ENT: hearing intact - Neck Neck: supple - Respiratory Respiratory: bilateral: diminished - Cardiovascular Rhythm: regular Heart Sounds: Present: S1 & S2 - Extremities Extremities: Full ROM - Gastrointestinal General gastrointestinal: Present: soft, tender, normal bowel sounds - Integumentary Integumentary: Present: warm, dry - Neurologic Neurological: alert and oriented x3 - Psychiatric Psychiatric: appropriate mood/affect, cooperative - Labs CBC & Chem 7: 07/04/16 05:10 07/04/16 05:10 Labs: Laboratory Results - last 24 hr 07/04/16 07/04/16 07/04/16 05:10 05:10 14:21 WBC 8.3 RBC 2.93 L Hgb 9.1 L Hct 27.2 L MCV 93 MCH 31 MCHC 34 RDW 14.5 Plt Count 139 L Lymph % (Auto) 20.8 [place] % (Auto) 11.8 H Eos % (Auto) 3.3 Baso % (Auto) 0.5 Lymph # 1.7 [place] # 1.0 H Eos # 0.3 Baso # 0.0 Seg Neutrophils % 63.6 Seg Neutrophils # 5.3 POC ABG pH 7.442 POC ABG pCO2 44.8 POC ABG pO2 97 POC ABG HCO3 30.6 POC ABG Total CO2 32 POC ABG O2 Sat 98 POC ABG Base Excess 6 FiO2 28 Sodium 140 Potassium 3.4 L Chloride 100.4 Carbon Dioxide 26 Anion Gap 17 BUN 2 L Creatinine 0.5 L Estimated GFR > 60 BUN/Creatinine Ratio 4.00 Glucose 96 Calcium 7.6 L
[2016-07-04] MEDS: TYLENOL PO PRN (16:35)
--- NOTE | 2016-07-04 18:56 | Progress Note ---
Assessment and Plan - Patient Problems (1) Acute respiratory failure Current Visit: Yes Status: Acute Qualifiers: Respiratory failure complication: R Plan to address problem: To respiratory failure has resolved. Continue nebulizes O2 when necessary. We' ll try another . ERCP a.m. (2) Aspiration pneumonia Current Visit: Yes Status: Acute Qualifiers: Aspiration pneumonia type: A Laterality: L Lung location: L Plan to address problem: No evidence of aspiration pneumonia now appears has resolved. After initial presentation. (3) Choledocholithiasis Current Visit: Yes Status: Acute Plan to address problem: Unable to get ERCP today patient would known impacted stone there still has abdominal pain. We'll treat sepsis a try to obtain additional ERCP on . (4) Sepsis Current Visit: Yes Status: Acute Qualifiers: Sepsis type: S Plan to address problem: Patient sepsis has resolved. Normal white count afebrile. No mental status changes. Continue empiric antibodies for now. History Interval history: He shouldn't resting much better slept well last night after pain control and medicines for insomnia. Patient eating well now no nausea vomiting today. Hospitalist Physical - Constitutional Vitals: Temp Pulse Resp BP Pulse Ox 99.6 F 84 18 123/75 98 07/04/16 17:00 07/04/16 17:00 07/04/16 17:00 07/04/16 17:00 07/04/16 12:00 General appearance: Present: no acute distress - EENT Eyes: Present: PERRL, EOM intact ENT: hearing intact, clear oral mucosa, dentition normal - Neck Neck: Present: supple, normal ROM - Respiratory Respiratory: bilateral: CTA - Cardiovascular Rhythm: regular Heart Sounds: Present: S1 & S2 - Extremities Extremities: no ischemia Peripheral Pulses: within normal limits - Abdominal General gastrointestinal: soft, tender, non-distended, other (obese) - Psychiatric Psychiatric: appropriate mood/affect, cooperative - Neurologic Neurologic: CNII-XII intact Results - Labs CBC & Chem 7: 07/04/16 05:10 07/04/16 05:10 Labs: Laboratory Last Values WBC 8.3 K/mm3 (4.5-11.0) 07/04/16 05:10 RBC 2.93 M/mm3 (3.65-5.03) L 07/04/16 05:10 Hgb 9.1 gm/dl (10.1-14.3) L 07/04/16 05:10 Hct 27.2 % (30.3-42.9) L 07/04/16 05:10 MCV 93 fl (79-97) 07/04/16 05:10 MCH 31 pg (28-32) 07/04/16 05:10 MCHC 34 % (30-34) 07/04/16 05:10 RDW 14.5 % (13.2-15.2) 07/04/16 05:10 Plt Count 139 K/mm3 (140-440) L 07/04/16 05:10 Lymph % (Auto) 20.8 % (13.4-35.0) 07/04/16 05:10 Dare % (Auto) 11.8 % (0.0-7.3) H 07/04/16 05:10 Eos % (Auto) 3.3 % (0.0-4.3) 07/04/16 05:10 Baso % (Auto) 0.5 % (0.0-1.8) 07/04/16 05:10 Lymph # 1.7 K/mm3 (1.2-5.4) 07/04/16 05:10 Dare # 1.0 K/mm3 (0.0-0.8) H 07/04/16 05:10 Eos # 0.3 K/mm3 (0.0-0.4) 07/04/16 05:10 Baso # 0.0 K/mm3 (0.0-0.1) 07/04/16 05:10 Add Manual Diff Complete 06/29/16 13:48 Total Counted 100 06/29/16 13:48 Seg Neutrophils % 63.6 % (40.0-70.0) 07/04/16 05:10 Seg Neuts % (Manual) 69.0 % (40.0-70.0) 06/29/16 13:48 Band Neutrophils % 22.0 % 06/29/16 13:48 Lymphocytes % (Manual) 4.0 % (13.4-35.0) L 06/29/16 13:48 Reactive Lymphs % (Man) 0 % 06/29/16 13:48 Monocytes % (Manual) 2.0 % (0.0-7.3) 06/29/16 13:48 Eosinophils % (Manual) 0 % (0.0-4.3) 06/29/16 13:48 Basophils % (Manual) 0 % (0.0-1.8) 06/29/16 00:25 Metamyelocytes % 3.0 % 06/29/16 13:48 Myelocytes % 0 % 06/29/16 13:48 Promyelocytes % 0 % 06/29/16 13:48 Blast Cells % 0 % 06/29/16 13:48 Nucleated RBC % Not Reportable 06/29/16 13:48 Seg Neutrophils # 5.3 K/mm3 (1.8-7.7) 07/04/16 05:10 Seg Neutrophils # Man 16.1 K/mm3 (1.8-7.7) H 06/29/16 13:48 Band Neutrophils # 5.1 K/mm3 06/29/16 13:48 Lymphocytes # (Manual) 0.9 K/mm3 (1.2-5.4) L 06/29/16 13:48 Abs React Lymphs (Man) 0.0 K/mm3 06/29/16 13:48 Monocytes # (Manual) 0.5 K/mm3 (0.0-0.8) 06/29/16 13:48 Eosinophils # (Manual) 0.0 K/mm3 (0.0-0.4) 06/29/16 13:48 Basophils # (Manual) 0.0 K/mm3 (0.0-0.1) 06/29/16 13:48 Metamyelocytes # 0.7 K/mm3 06/29/16 13:48 Myelocytes # 0.0 K/mm3 06/29/16 13:48 Promyelocytes # 0.0 K/mm3 06/29/16 13:48 Blast Cells # 0.0 K/mm3 06/29/16 13:48 WBC Morphology Not Reportable 06/29/16 13:48 Hypersegmented Neuts Not Reportable 06/29/16 13:48 Hyposegmented Neuts Not Reportable 06/29/16 13:48 Hypogranular Neuts Not Reportable 06/29/16 13:48 Smudge Cells Not Reportable 06/29/16 13:48 Toxic Granulation Not Reportable 06/29/16 13:48 Toxic Vacuolation Not Reportable 06/29/16 13:48 Dohle Bodies Not Reportable 06/29/16 13:48 Pelger-Huet Anomaly Not Reportable 06/29/16 13:48 Basil Rods Not Reportable 06/29/16 13:48 Platelet Estimate Appears decreased 06/29/16 13:48 Clumped Platelets Not Reportable 06/29/16 13:48 Plt Clumps, EDTA Not Reportable 06/29/16 13:48 Large Platelets Not Reportable 06/29/16 13:48 Giant Platelets Not Reportable 06/29/16 13:48 Platelet Satelliting Not Reportable 06/29/16 13:48 Plt Morphology Comment Not Reportable 06/29/16 13:48 RBC Morphology Not Reportable 06/29/16 13:48 Dimorphic RBCs Not Reportable 06/29/16 13:48 Polychromasia Not Reportable 06/29/16 13:48 Hypochromasia Not Reportable 06/29/16 13:48 Poikilocytosis Not Reportable 06/29/16 13:48 Anisocytosis Few 06/29/16 13:48 Microcytosis Not Reportable 06/29/16 13:48 Macrocytosis Not Reportable 06/29/16 13:48 Spherocytes Not Reportable 06/29/16 13:48 Pappenheimer Bodies Not Reportable 06/29/16 13:48 Sickle Cells Not Reportable 06/29/16 13:48 Target Cells Not Reportable 06/29/16 13:48 Tear Drop Cells Not Reportable 06/29/16 13:48 Ovalocytes Not Reportable 06/29/16 13:48 Helmet Cells Not Reportable 06/29/16 13:48 [place] Bodies Not Reportable 06/29/16 13:48 Garfield Rings Not Reportable 06/29/16 13:48 Jennifer Cells Not Reportable 06/29/16 13:48 Bite Cells Not Reportable 06/29/16 13:48 Crenated Cell Not Reportable 06/29/16 13:48 Elliptocytes Not Reportable 06/29/16 13:48 Acanthocytes (Spur) Not Reportable 06/29/16 13:48 Rouleaux Not Reportable 06/29/16 13:48 Hemoglobin C Crystals Not Reportable 06/29/16 13:48 Schistocytes Not Reportable 06/29/16 13:48 Malaria parasites Not Reportable 06/29/16 13:48 Harley Bodies Not Reportable 06/29/16 13:48 Hem Pathologist Commnt No 06/29/16 13:48 PT 13.3 Sec. (12.2-14.9) 06/29/16 02:25 INR 1.02 (0.87-1.13) 06/29/16 02:25 POC ABG pH 7.442 (7.35-7.45) 07/04/16 14:21 POC ABG pCO2 44.8 (35-45) 07/04/16 14:21 POC ABG pO2 97 (80-105) 07/04/16 14:21 POC ABG HCO3 30.6 07/04/16 14:21 POC ABG Total CO2 32 07/04/16 14:21 POC ABG O2 Sat 98 07/04/16 14:21 POC ABG Base Excess 6 07/04/16 14:21 FiO2 28 % 07/04/16 14:21 Sodium 140 mmol/L (137-145) 07/04/16 05:10 Potassium 3.4 mmol/L (3.6-5.0) L 07/04/16 05:10 Chloride 100.4 mmol/L (98-107) 07/04/16 05:10 Carbon Dioxide 26 mmol/L (22-30) 07/04/16 05:10 Anion Gap 17 mmol/L 07/04/16 05:10 BUN 2 mg/dL (7-17) L 07/04/16 05:10 Creatinine 0.5 mg/dL (0.7-1.2) L 07/04/16 05:10 Estimated GFR > 60 ml/min 07/04/16 05:10 BUN/Creatinine Ratio 4.00 % 07/04/16 05:10 Glucose 96 mg/dL (65-100) 07/04/16 05:10 Lactic Acid 1.6 mmol/L (0.7-2.0) 06/29/16 17:55 Calcium 7.6 mg/dL (8.4-10.2) L 07/04/16 05:10 Total Bilirubin 2.4 mg/dL (0.1-1.2) H 07/02/16 20:53 Direct Bilirubin 1.4 mg/dL (0-0.2) H 07/02/16 20:53 Indirect Bilirubin 1.0 mg/dL 07/02/16 20:53 AST 36 units/L (5-40) 07/02/16 20:53 ALT 53 units/L (7-56) 07/02/16 20:53 Alkaline Phosphatase 314 units/L (35-129) H 07/02/16 20:53 Troponin T < 0.010 ng/mL (0.00-0.029) 06/29/16 00:25 Total Protein 6.8 g/dL (6.3-8.2) 07/02/16 20:53 Albumin 3.1 g/dL (3.9-5) L 07/02/16 20:53 Albumin/Globulin Ratio 0.8 % 07/02/16 20:53 Lipase 30 units/L (13-60) 06/29/16 00:25 HCG, Qual Negative (Negative) 06/29/16 00:25
[2016-07-04] MEDS: MORPHINE IV PRN (20:52)
--- NOTE | 2016-07-04 21:19 | Anesthesia Consultation ---
Anesthesia Consult and Med Hx Date of service: 07/05/16 - Airway Anesthetic Teeth Evaluation: Edentulous ROM Head & Neck: Adequate Mental/Hyoid Distance: Adequate Mallampati Class: Class II Intubation Access Assessment: Probably Good - Pulmonary Exam CTA: Yes - Cardiac Exam Cardiac Exam: RRR - Pre-Operative Health Status ASA Pre-Surgery Classification: ASA3 Proposed Anesthetic Plan: General - Pre-Anesthesia Comment Pre-Anesthesia Comments: Patient underwent unsuccesful ERCP on 06/29/16. Procedure was terminated due to uncontrolled coughing in the presence of copious secretions and laryngospasm. She had suspected aspiration pneumonitis which has now resolved. She continues to use supplemental O2 but her WBC has normalized and her CXR is clear. Pulmonary medicine feels she is stable for ERCP at this time. Patient will probably require general endotracheal anesthesia due to her hyperactive airway reflexes which would be difficult to mask by sedation without significant risk of hypoventilation. - Pulmonary Hx Smoking: Yes (1 ppd) Hx Asthma: No COPD: No - Endocrine Hx End Stage Renal Disease: No - Other Systems Hx Alcohol Use: No Hx Obesity: Yes
[2016-07-05] MEDS: AMBIEN PO SCH (00:21)
[2016-07-05] MEDS: ZOSYN/NS 4.5GM/100ML 4.5 GM/100 ML VIAL IV SCH ×4 (00:21→21:06)
[2016-07-05] MEDS: NACL 0.9% 1000 ML 1,000 ML IV SCH ×2 (03:33→16:32)
[2016-07-05 05:52] LABS: INR 1.12 (0.87-1.13); Mean Corpuscular HGB Conc 32 % (30-34); Mean Corpuscular Hemoglobin 30 pg (28-32); Mean Corpuscular Volume 94 fl (79-97); Platelet Count 178 K/mm3 (140-440); Red Blood Count 3.31 M/mm3 (3.65-5.03); White Blood Count 8.9 K/mm3 (4.5-11.0)
[2016-07-05 06:16] LABS: Albumin 3.4 g/dL (3.9-5); Albumin/Globulin Ratio 1.2 %; Bilirubin,Direct 0.8 mg/dL (0-0.2); Bilirubin,Indirect 0.5 mg/dL; Bilirubin,Total 1.3 mg/dL (0.1-1.2); Total Protein 6.3 g/dL (6.3-8.2)
[2016-07-05] MEDS ORDERED: WATER FOR IRRIG STERILE IR ONE ×2 (07:40→07:41)
[2016-07-05] MEDS ORDERED: NACL 0.9% 100 ML ONE (07:41)
[2016-07-05] MEDS ORDERED: SUBLIMAZE ONE ×2 (08:09→08:55)
[2016-07-05] MEDS ORDERED: DIPRIVAN 10 MG/ML IV ONE ×2 (08:09→09:53)
[2016-07-05] MEDS ORDERED: NEO SYNEPHRINE/NS Syringe(OR USE) IV ONE (09:00)
[2016-07-05] MEDS ORDERED: NACL 0.9% 1000 ML 1,000 ML IV SCH (09:00)
--- NOTE | 2016-07-05 09:28 | Post Operative Note ---
Pre-op diagnosis: CBD stones Post-op diagnosis: same Findings: 1. Bulging ampulla, with impacted stone. Removed after PD and biliary sphincterotomy, and basket removal. CBD dilated to 12 mm. Cystic duct patent. No residual stones in CBD. Procedure: ERCP with ES and stones removed Anesthesia: MAC Surgeon: PRECIOUS SANDOVAL Estimated blood loss: none Pathology: none Condition: stable Disposition: floor (Elective CCX)
[2016-07-05] MEDS ORDERED: QUELICIN ONE (09:53)
[2016-07-05] MEDS ORDERED: XYLOCAINE MPF 2% ONE (09:53)
[2016-07-05] MEDS ORDERED: ZOFRAN ONE (09:54)
[2016-07-05] MEDS ORDERED: ePHEDrine SULFATE ONE (09:54)
[2016-07-05] MEDS ORDERED: PROAIR IH ONE (09:54)
--- NOTE | 2016-07-05 10:05 | Operative Report ---
PROCEDURE: ERCP with sphincterotomy and stone extraction. PREOPERATIVE DIAGNOSIS: Choledocholithiasis. POSTOPERATIVE DIAGNOSIS: Choledocholithiasis. SEDATION: General anesthesia with intubation. HISTORY: The patient is a 36-year-old woman who had ascending cholangitis with sepsis. She is doing better clinically now on antibiotics. She has pneumonia. DESCRIPTION OF PROCEDURE: Indications, risks, and benefits were explained and consent was obtained. The patient was placed on abdomen on fluoroscopy table and sedated after intubation. [employer] video duodenoscope was passed through the mouth and oropharynx into the descending duodenum. Scope was then gradually withdrawn with close inspection of mucosa until the major papilla was visualized. Initially, selective cannulation of the pancreatic duct was achieved using the fusion sphincterotome and guide wire. A precut papillotomy was done from there and then the common bile duct was cannulated. FINDINGS: 1. Bulging major papilla with stone impacted in the ampulla. The catheter would not initially enter and nor were the guidewire. After a precut from the pancreatic duct with the wire in the PD, the stone fragments from the tip did come out. With pressure from the catheter on the outside, we were able to express a large stone from the ampulla. Then, common bile duct was cannulated. Two more stones were noted in the common bile duct and common hepatic duct that were removed with 3 cm Trapezoid basket. 2. Common bile duct is dilated to 12 mm. Cystic duct is patent with a stone noted in the proximal cystic duct and in the gallbladder. No residual stones were noted in the bile duct after the procedure. The patient tolerated the procedure well without immediate complications and is being extubated by Anesthesia. IMPRESSION: Choledocholithiasis with some stone impaction in the ampulla, removed after sphincterotomy in basket with significant difficulty. PLAN: 1. Monitor for response. 2. Elective cholecystectomy. JOB# [id number] HRC/NTS
--- NOTE | 2016-07-05 11:28 | Post Anesthesia Evaluation ---
- Post Anesthesia Evaluation Airway Patent: Yes Stable Respiratory Function: Yes Nausea/Vomiting: No Temp > 96.8F: Yes Pain Manageable: Yes Adequeate Hydration: Yes Anesthesia Complications: No Block Receding Appropriately: Not Applicable Patient on Ventilator: No
--- NOTE | 2016-07-05 11:37 | Post Anesthesia Evaluation ---
- Post Anesthesia Evaluation Patient Participated: No Airway Patent: Yes Stable Respiratory Function: Yes Nausea/Vomiting: No Temp > 96.8F: Yes Pain Manageable: Yes Adequeate Hydration: Yes Anesthesia Complications: No Block Receding Appropriately: Not Applicable Patient on Ventilator: No
--- NOTE | 2016-07-05 11:41 | Progress Note ---
Assessment and Plan Pulmonary infiltrates/pneumonia.Improved Acute cholangitis. Escherichia coli sepsis. WBC improving Tobacco abuse. Early COPD a consideration Episode of laryngospasm Obesity. GIA? Recommendations Continue nebs Can DC steroids tomorrow Complete ABX Smoking cessation discussed COPD w/up with PFT OPD after DH Subjective Date of service: 07/05/16 Principal diagnosis: hypoxemia, laryngospasm episode, cholangitis COPD Interval history: Just comming from procedure.No respiratory complains. Objective Vital Signs - 12hr 07/05/16 07/05/16 07/05/16 00:55 08:00 08:16 Temperature 98.6 F 97.8 F 98.2 F Pulse Rate Pulse Rate [ 81 80 From Monitor] Respiratory 16 18 21 Rate Blood Pressure 128/78 Blood Pressure 125/72 130/60 [Right Arm] O2 Sat by Pulse 100 97 92 Oximetry 07/05/16 07/05/16 07/05/16 08:20 09:37 09:42 Temperature 98.2 F 98.8 F Pulse Rate 103 H 116 H 113 H Pulse Rate [ From Monitor] Respiratory 21 22 19 Rate Blood Pressure 128/78 151/88 112/75 Blood Pressure [Right Arm] O2 Sat by Pulse 92 98 98 Oximetry 07/05/16 07/05/16 07/05/16 09:47 09:52 10:02 Temperature Pulse Rate 107 H 101 H 97 H Pulse Rate [ From Monitor] Respiratory 20 18 19 Rate Blood Pressure 115/81 100/67 115/83 Blood Pressure [Right Arm] O2 Sat by Pulse 98 99 99 Oximetry 07/05/16 07/05/16 07/05/16 10:17 10:32 10:47 Temperature Pulse Rate 100 H 94 H 98 H Pulse Rate [ From Monitor] Respiratory 19 18 17 Rate Blood Pressure 90/61 110/78 102/69 Blood Pressure [Right Arm] O2 Sat by Pulse 94 94 98 Oximetry Constitutional: no acute distress, alert, other (obese) ENT: oropharynx moist Neck: no lymphadenopathy Ascultation: Bilateral: rales (fine, bibasilar posterior,minimal. CTA) Percussion: Bilateral: not dull Gastrointestinal: normoactive bowel sounds, soft, non-tender, non-distended, other (obese) Integumentary: normal Extremities: no cyanosis, no edema Neurologic: normal mental status, non-focal exam, CN II-XII normal CBC and BMP: 03/23/17 05:13 07/04/16 05:10 ABG, PT/INR, D-dimer: ABG POC ABG pH 7.442 (7.35-7.45) 07/04/16 14:21 POC ABG pCO2 44.8 (35-45) 07/04/16 14:21 POC ABG pO2 97 (80-105) 07/04/16 14:21 POC ABG HCO3 30.6 07/04/16 14:21 POC ABG Total CO2 32 07/04/16 14:21 POC ABG O2 Sat 98 07/04/16 14:21 PT/INR, D-dimer PT 14.3 Sec. (12.2-14.9) 07/05/16 05:13 INR 1.12 (0.87-1.13) 07/05/16 05:13 Abnormal lab findings: Abnormal Labs 06/29/16 06/29/16 06/29/16 06:17 09:41 13:48 WBC 23.3 H RBC 3.35 L Hgb Hct Plt Count Lymph % (Auto) Waller % (Auto) Waller # Seg Neutrophils % Lymphocytes % (Manual) 4.0 L Seg Neutrophils # Seg Neutrophils # Man 16.1 H Lymphocytes # (Manual) 0.9 L Potassium Carbon Dioxide BUN Creatinine Glucose Lactic Acid 4.0 H* 3.0 H* Calcium Total Bilirubin Direct Bilirubin AST ALT Alkaline Phosphatase Total Protein Albumin 06/29/16 06/30/16 06/30/16 13:48 05:58 05:58 WBC 15.5 H RBC 3.34 L Hgb Hct Plt Count 128 L Lymph % (Auto) 9.5 L Waller % (Auto) Waller # 1.1 H Seg Neutrophils % 82.0 H Lymphocytes % (Manual) Seg Neutrophils # 12.7 H Seg Neutrophils # Man Lymphocytes # (Manual) Potassium 3.4 L Carbon Dioxide 21 L BUN 6 L Creatinine 0.6 L 0.5 L Glucose 165 H 105 H Lactic Acid Calcium 7.5 L D 7.1 L Total Bilirubin 3.9 H 3.2 H Direct Bilirubin AST 148 H 93 H ALT 136 H 107 H Alkaline Phosphatase 222 H 207 H Total Protein 6.2 L D 6.1 L Albumin 3.1 L 3.0 L 06/30/16 07/02/16 07/02/16 05:58 20:53 20:53 WBC RBC 3.21 L Hgb 9.8 L Hct 29.7 L Plt Count Lymph % (Auto) [place] % (Auto) 10.6 H Waller # 1.1 H Seg Neutrophils % 71.5 H Lymphocytes % (Manual) Seg Neutrophils # Seg Neutrophils # Man Lymphocytes # (Manual) Potassium Carbon Dioxide BUN Creatinine Glucose Lactic Acid Calcium Total Bilirubin 3.1 H 2.4 H Direct Bilirubin 2.6 H 1.4 H AST 95 H ALT 107 H Alkaline Phosphatase 207 H 314 H Total Protein 6.0 L Albumin 2.9 L 3.1 L 07/04/16 07/04/16 07/05/16 05:10 05:10 05:13 WBC RBC 2.93 L 3.31 L Hgb 9.1 L 10.0 L Hct 27.2 L Plt Count 139 L Lymph % (Auto) Waller % (Auto) 11.8 H Waller # 1.0 H Seg Neutrophils % Lymphocytes % (Manual) Seg Neutrophils # Seg Neutrophils # Man Lymphocytes # (Manual) Potassium 3.4 L Carbon Dioxide BUN 2 L Creatinine 0.5 L Glucose Lactic Acid Calcium 7.6 L Total Bilirubin Direct Bilirubin AST ALT Alkaline Phosphatase Total Protein Albumin 07/05/16 05:29 WBC RBC Hgb Hct Plt Count Lymph % (Auto) [place] % (Auto) Waller # Seg Neutrophils % Lymphocytes % (Manual) Seg Neutrophils # Seg Neutrophils # Man Lymphocytes # (Manual) Potassium Carbon Dioxide BUN Creatinine Glucose Lactic Acid Calcium Total Bilirubin 1.3 H Direct Bilirubin 0.8 H AST ALT Alkaline Phosphatase 381 H Total Protein Albumin 3.4 L
[2016-07-05] MEDS: LEVAQUIN 750MG/150ML 750 MG/150 ML BAG IV SCH (11:52)
[2016-07-05] MEDS: MORPHINE IV PRN ×3 (12:35→20:55)
--- NOTE | 2016-07-05 13:00 | Progress Note ---
Assessment and Plan - Patient Problems (1) Acute respiratory failure Current Visit: Yes Status: Acute Qualifiers: Respiratory failure complication: R Plan to address problem: Acute respiratory failure resolving much better multifactorial secondary to laryngeal spasms and COPD. Resolving. Plan will be DC steroids in the a.m. Anticipate discharge tomorrow. (2) Aspiration pneumonia Current Visit: Yes Status: Acute Qualifiers: Aspiration pneumonia type: A Laterality: L Lung location: L Plan to address problem: Issue bilateral pulmonary infiltrates most likely aspiration pneumonia after laryngeal spasms in for suture ERCP/EGD improving. Patient should be discharged with by mouth antibiotics to complete a total of 14 days. Anticipate discharge in a.m. (3) Choledocholithiasis Current Visit: Yes Status: Acute Plan to address problem: Patient to have ERCP today plan will be to remove stone if possible. If able to remove stone will follow with surgery on an outpatient. Elective cholecystectomy (4) Sepsis Current Visit: Yes Status: Resolved Qualifiers: Sepsis type: S (5) COPD (chronic obstructive pulmonary disease) Current Visit: Yes Status: Acute Qualifiers: COPD type: C Chronic bronchitis type: C Emphysema type: E Plan to address problem: We'll DC steroids in a.m. in anticipation for discharge. We'll continue to treat to prevent laryngeal spasms. Patient is been for about smoking cessation and weight loss (6) Morbid obesity Current Visit: Yes Status: Acute Qualifiers: Obesity type: O (7) Morbid obesity due to excess calories Current Visit: Yes Status: Acute History Interval history: Patient today feels better was able to eat yesterday tolerated by mouth's without difficulty. Patient breathing much better. Scheduled for ERCP his morning Hospitalist Physical - Constitutional Vitals: Temp Pulse Resp BP Pulse Ox 98.8 F 98 H 17 102/69 98 07/05/16 09:37 07/05/16 10:47 07/05/16 10:47 07/05/16 10:47 07/05/16 10:47 General appearance: Present: no acute distress - EENT Eyes: Present: PERRL, EOM intact ENT: hearing intact, clear oral mucosa, dentition normal - Neck Neck: Present: supple, normal ROM - Respiratory Respiratory effort: normal Respiratory: bilateral: CTA - Cardiovascular Rhythm: regular Heart Sounds: Present: S1 & S2 - Extremities Extremities: no ischemia, pulses intact, pulses symmetrical, No edema Peripheral Pulses: within normal limits - Abdominal General gastrointestinal: soft, non-tender, non-distended - Integumentary Integumentary: Present: clear, warm, dry - Psychiatric Psychiatric: appropriate mood/affect, cooperative - Neurologic Neurologic: CNII-XII intact, moves all extremities Results - Labs CBC & Chem 7: 07/05/16 05:13 07/04/16 05:10 Labs: Laboratory Last Values WBC 8.9 K/mm3 (4.5-11.0) 07/05/16 05:13 RBC 3.31 M/mm3 (3.65-5.03) L 07/05/16 05:13 Hgb 10.0 gm/dl (10.1-14.3) L 07/05/16 05:13 Hct 31.0 % (30.3-42.9) 07/05/16 05:13 MCV 94 fl (79-97) 07/05/16 05:13 MCH 30 pg (28-32) 07/05/16 05:13 MCHC 32 % (30-34) 07/05/16 05:13 RDW 15.0 % (13.2-15.2) 07/05/16 05:13 Plt Count 178 K/mm3 (140-440) 07/05/16 05:13 Lymph % (Auto) 20.8 % (13.4-35.0) 07/04/16 05:10 [place]row[place] % (Auto) 11.8 % (0.0-7.3) H 07/04/16 05:10 Eos % (Auto) 3.3 % (0.0-4.3) 07/04/16 05:10 Baso % (Auto) 0.5 % (0.0-1.8) 07/04/16 05:10 Lymph # 1.7 K/mm3 (1.2-5.4) 07/04/16 05:10 Prowers # 1.0 K/mm3 (0.0-0.8) H 07/04/16 05:10 Eos # 0.3 K/mm3 (0.0-0.4) 07/04/16 05:10 Baso # 0.0 K/mm3 (0.0-0.1) 07/04/16 05:10 Add Manual Diff Complete 06/29/16 13:48 Total Counted 100 06/29/16 13:48 Seg Neutrophils % 63.6 % (40.0-70.0) 07/04/16 05:10 Seg Neuts % (Manual) 69.0 % (40.0-70.0) 06/29/16 13:48 Band Neutrophils % 22.0 % 06/29/16 13:48 Lymphocytes % (Manual) 4.0 % (13.4-35.0) L 06/29/16 13:48 Reactive Lymphs % (Man) 0 % 06/29/16 13:48 Monocytes % (Manual) 2.0 % (0.0-7.3) 06/29/16 13:48 Eosinophils % (Manual) 0 % (0.0-4.3) 06/29/16 13:48 Basophils % (Manual) 0 % (0.0-1.8) 06/29/16 00:25 Metamyelocytes % 3.0 % 06/29/16 13:48 Myelocytes % 0 % 06/29/16 13:48 Promyelocytes % 0 % 06/29/16 13:48 Blast Cells % 0 % 06/29/16 13:48 Nucleated RBC % Not Reportable 06/29/16 13:48 Seg Neutrophils # 5.3 K/mm3 (1.8-7.7) 07/04/16 05:10 Seg Neutrophils # Man 16.1 K/mm3 (1.8-7.7) H 06/29/16 13:48 Band Neutrophils # 5.1 K/mm3 06/29/16 13:48 Lymphocytes # (Manual) 0.9 K/mm3 (1.2-5.4) L 06/29/16 13:48 Abs React Lymphs (Man) 0.0 K/mm3 06/29/16 13:48 Monocytes # (Manual) 0.5 K/mm3 (0.0-0.8) 06/29/16 13:48 Eosinophils # (Manual) 0.0 K/mm3 (0.0-0.4) 06/29/16 13:48 Basophils # (Manual) 0.0 K/mm3 (0.0-0.1) 06/29/16 13:48 Metamyelocytes # 0.7 K/mm3 06/29/16 13:48 Myelocytes # 0.0 K/mm3 06/29/16 13:48 Promyelocytes # 0.0 K/mm3 06/29/16 13:48 Blast Cells # 0.0 K/mm3 06/29/16 13:48 WBC Morphology Not Reportable 06/29/16 13:48 Hypersegmented Neuts Not Reportable 06/29/16 13:48 Hyposegmented Neuts Not Reportable 06/29/16 13:48 Hypogranular Neuts Not Reportable 06/29/16 13:48 Smudge Cells Not Reportable 06/29/16 13:48 Toxic Granulation Not Reportable 06/29/16 13:48 Toxic Vacuolation Not Reportable 06/29/16 13:48 Dohle Bodies Not Reportable 06/29/16 13:48 Pelger-Huet Anomaly Not Reportable 06/29/16 13:48 Basil Rods Not Reportable 06/29/16 13:48 Platelet Estimate Appears decreased 06/29/16 13:48 Clumped Platelets Not Reportable 06/29/16 13:48 Plt Clumps, EDTA Not Reportable 06/29/16 13:48 Large Platelets Not Reportable 06/29/16 13:48 Giant Platelets Not Reportable 06/29/16 13:48 Platelet Satelliting Not Reportable 06/29/16 13:48 Plt Morphology Comment Not Reportable 06/29/16 13:48 RBC Morphology Not Reportable 06/29/16 13:48 Dimorphic RBCs Not Reportable 06/29/16 13:48 Polychromasia Not Reportable 06/29/16 13:48 Hypochromasia Not Reportable 06/29/16 13:48 Poikilocytosis Not Reportable 06/29/16 13:48 Anisocytosis Few 06/29/16 13:48 Microcytosis Not Reportable 06/29/16 13:48 Macrocytosis Not Reportable 06/29/16 13:48 Spherocytes Not Reportable 06/29/16 13:48 Pappenheimer Bodies Not Reportable 06/29/16 13:48 Sickle Cells Not Reportable 06/29/16 13:48 Target Cells Not Reportable 06/29/16 13:48 Tear Drop Cells Not Reportable 06/29/16 13:48 Ovalocytes Not Reportable 06/29/16 13:48 Helmet Cells Not Reportable 06/29/16 13:48 Cabrera-Crum Bodies Not Reportable 06/29/16 13:48 [place] Rings Not Reportable 06/29/16 13:48 Jennfier Cells Not Reportable 06/29/16 13:48 Bite Cells Not Reportable 06/29/16 13:48 Crenated Cell Not Reportable 06/29/16 13:48 Elliptocytes Not Reportable 06/29/16 13:48 Acanthocytes (Spur) Not Reportable 06/29/16 13:48 Rouleaux Not Reportable 06/29/16 13:48 Hemoglobin C Crystals Not Reportable 06/29/16 13:48 Schistocytes Not Reportable 06/29/16 13:48 Malaria parasites Not Reportable 06/29/16 13:48 Harley Bodies Not Reportable 06/29/16 13:48 Hem Pathologist Commnt No 06/29/16 13:48 PT 14.3 Sec. (12.2-14.9) 07/05/16 05:13 INR 1.12 (0.87-1.13) 07/05/16 05:13 POC ABG pH 7.442 (7.35-7.45) 07/04/16 14:21 POC ABG pCO2 44.8 (35-45) 07/04/16 14:21 POC ABG pO2 97 (80-105) 07/04/16 14:21 POC ABG HCO3 30.6 07/04/16 14:21 POC ABG Total CO2 32 07/04/16 14:21 POC ABG O2 Sat 98 07/04/16 14:21 POC ABG Base Excess 6 07/04/16 14:21 FiO2 28 % 07/04/16 14:21 Sodium 140 mmol/L (137-145) 07/04/16 05:10 Potassium 3.4 mmol/L (3.6-5.0) L 07/04/16 05:10 Chloride 100.4 mmol/L (98-107) 07/04/16 05:10 Carbon Dioxide 26 mmol/L (22-30) 07/04/16 05:10 Anion Gap 17 mmol/L 07/04/16 05:10 BUN 2 mg/dL (7-17) L 07/04/16 05:10 Creatinine 0.5 mg/dL (0.7-1.2) L 07/04/16 05:10 Estimated GFR > 60 ml/min 07/04/16 05:10 BUN/Creatinine Ratio 4.00 % 07/04/16 05:10 Glucose 96 mg/dL (65-100) 07/04/16 05:10 Lactic Acid 1.6 mmol/L (0.7-2.0) 06/29/16 17:55 Calcium 7.6 mg/dL (8.4-10.2) L 07/04/16 05:10 Total Bilirubin 1.3 mg/dL (0.1-1.2) H 07/05/16 05:29 Direct Bilirubin 0.8 mg/dL (0-0.2) H 07/05/16 05:29 Indirect Bilirubin 0.5 mg/dL 07/05/16 05:29 AST 25 units/L (5-40) 07/05/16 05:29 ALT 42 units/L (7-56) 07/05/16 05:29 Alkaline Phosphatase 381 units/L (35-129) H 07/05/16 05:29 Troponin T < 0.010 ng/mL (0.00-0.029) 06/29/16 00:25 Total Protein 6.3 g/dL (6.3-8.2) 07/05/16 05:29 Albumin 3.4 g/dL (3.9-5) L 07/05/16 05:29 Albumin/Globulin Ratio 1.2 % 07/05/16 05:29 Lipase 30 units/L (13-60) 06/29/16 00:25 HCG, Qual Negative (Negative) 06/29/16 00:25
--- NOTE | 2016-07-05 13:46 | Fluoroscopy Report ---
ERCP. History: Choledocholithiasis. Procedure: The procedure was performed by Dr. Newsome. Contrast was injected into the common bile duct which is markedly dilated. There are multiple filling defects within the common duct. A filling defect is seen in the distal left hepatic duct. There is mild intrahepatic biliary dilatation. The the stones were successfully removed using a basket device. A sphincterotomy and papillotomy were performed. Final images demonstrate no residual filling defects. Impression: Successful removal of multiple common duct stones.
[2016-07-05] MEDS: PROVENTIL IH PRN (13:51)
[2016-07-05] MEDS: CHLORASEPTIC MM PRN ×2 (17:19→19:11)
[2016-07-06] MEDS: NACL 0.9% 1000 ML 1,000 ML IV SCH ×2 (00:08→06:41)
[2016-07-06] MEDS: AMBIEN PO SCH (00:09)
--- NOTE | 2016-07-06 03:24 | Progress Note ---
Subjective Narrative: Seen yesterday , post ERCP .feels much better , Pt may go home to see me in one week to arrange for cholecystectomy electively . Objective Vital Signs - 12hr 07/05/16 07/05/16 07/05/16 16:59 17:03 20:50 Temperature 98 F Pulse Rate [ 78 From Monitor] Respiratory 18 18 Rate Blood Pressure 130/64 [Right Arm] O2 Sat by Pulse 96 Oximetry 07/05/16 07/05/16 07/05/16 20:55 21:12 23:00 Temperature 98.3 F Pulse Rate [ 84 84 From Monitor] Respiratory 18 18 18 Rate Blood Pressure 125/59 [Right Arm] O2 Sat by Pulse 98 98 Oximetry - Labs 07/05/16 05:13 07/04/16 05:10 Diabetes panel 07/05/16 Range/Units 05:29 AST 25 (5-40) units/L ALT 42 (7-56) units/L Alkaline Phosphatase 381 H (35-129) units/L Total Protein 6.3 (6.3-8.2) g/dL Albumin 3.4 L (3.9-5) g/dL Calcium panel 07/05/16 Range/Units 05:29 Albumin 3.4 L (3.9-5) g/dL Adrenal panel 07/05/16 Range/Units 05:29 Total Bilirubin 1.3 H (0.1-1.2) mg/dL AST 25 (5-40) units/L ALT 42 (7-56) units/L Alkaline Phosphatase 381 H (35-129) units/L Total Protein 6.3 (6.3-8.2) g/dL Albumin 3.4 L (3.9-5) g/dL
[2016-07-06] MEDS: ZOSYN/NS 4.5GM/100ML 4.5 GM/100 ML VIAL IV SCH (05:21)
--- NOTE | 2016-07-06 08:01 | Discharge Summary ---
Providers - Providers Date of Admission: 06/29/16 03:56 Attending physician: RAIN NELSON 07/02/16 17:40 Consult to Physician [CONS] Routine Consulting Provider: JORDAN DEVI Reason For Exam: pneumonia,aspiration Place consult to:: pulmonary/ reyes Notified:: answering service Phone number called:: Was contact made?: Yes If yes, spoke with:: pierre Time called:: 18:32 Primary care physician: [employer] Hospitalization Condition: Good Hospital course: 36 year-old woman who medical problem comes emergency room with complaints of abdominal pain. Pain is located in the right upper quadrant, epigastric area which she describes as sharp pain, constant, intensity 7/10, no radiation and she cannot identify exacerbating or relieving factors. She's had multiple episodes of nausea vomiting, fever and chills. Patient denies chest pain, palpitation, shortness of breath, cough, hematochezia, dysuria, frequency, focal weakness, dysarthria,, polydipsia polyuria, hot or cold intolerance, easy bruisability, or rash or bleeding from mucosal membrane, rhinorrhea, epistaxis, earache, tinnitus, blurry vision, eye discharge, anxiety, depression. Other review of systems negative. Patient was admitted to the hospital with acute respiratory failure which was secondary to laryngeal spasms and COPD. Patient was treated for both. Patient had bilateral pulmonary infiltrates which we felt were due to aspiration pneumonia. Patient was treated with IV antibiotics and has improved back to her baseline. Patient is asking to go home. Patient also had choledocholithiasis for which she had an ERCP with sphincterotomy and stone removal. Patient will follow-up with general surgery as an outpatient for cholecystectomy. Incidentally patient had Escherichia coli growing one bottle of her blood cultures. Given the fact the patient is afebrile and her white blood cell count is normal and she is clinically better I feel that this is not medically significant. Patient will be discharged home on antibiotics for another 7 days. Patient will follow-up with the primary care physician as well. Disposition: DISCHARGED TO HOME OR SELFCARE Core Measure Documentation - Palliative Care Palliative Care/ Comfort Measures: Not Applicable - Core Measures Any of the following diagnoses?: none Exam - Constitutional Vitals: Temp Pulse Resp BP Pulse Ox 98.3 F 84 18 125/59 98 07/05/16 23:00 07/05/16 23:00 07/05/16 23:00 07/05/16 23:00 07/05/16 23:00 General appearance: Present: no acute distress - EENT Eyes: Present: PERRL, EOM intact ENT: hearing intact, clear oral mucosa - Neck Neck: Present: supple, normal ROM - Respiratory Respiratory effort: normal Respiratory: bilateral: CTA - Cardiovascular Rhythm: regular Heart Sounds: Present: S1 & S2 - Abdominal General gastrointestinal: Present: soft, non-tender, non-distended, normal bowel sounds - Musculoskeletal Musculoskeletal: strength equal bilaterally - Psychiatric Psychiatric: appropriate mood/affect, intact judgment & insight - Neurologic Neurologic: CNII-XII intact, moves all extremities Plan Activity: advance as tolerated Weight Bearing Status: Weight Bear as Tolerated Diet: low fat, low cholesterol, low salt Follow up with: PRIMARY CAREMD [Primary Care Provider] - 3-5 Days LEONIE BURGOS MD [Staff Physician] - 7 Days PRECIOUS SANDOVAL MD [Staff Physician] - 7 Days RAIN NELSON MD [Staff Physician] - 7 Days Prescriptions: ALBUTEROL NEB's [Proventil 0.083% NEBS] 2.5 mg IH Q4HRT PRN #30 nebu PRN Reason: Shortness Of Breath Zolpidem [Ambien] 10 mg PO QHS #30 tablet
[2016-07-06] MEDS: MORPHINE IV PRN (08:32)
[2016-07-06] MEDS: CHLORASEPTIC MM PRN ×2 (08:34→11:54)
[2016-07-06] MEDS: PROVENTIL IH PRN (10:41)
[2016-07-06] MEDS: LEVAQUIN 750MG/150ML 750 MG/150 ML BAG IV SCH (11:40)
[2016-07-06] MEDS: TYLENOL PO PRN (11:51)
--- NOTE | 2016-07-06 12:01 | Progress Note ---
Assessment and Plan Pulmonary infiltrates/pneumonia.Improved. Completing antibiotics Acute cholangitis. Escherichia coli sepsis. Antibiotics no fever Tobacco abuse. Early COPD affected Episode of laryngospasm. Resolved Obesity. GIA? Recommendations Complete ABX. From a pneumonia standpoint, I will complete a minimum of 7 days of levofloxacin Smoking cessation Symbicort 160/4.5 g 2 puffs twice a day Albuterol inhaler 2 puffs every 4-6 hours for breakthrough symptoms and cough COPD w/up with PFT OPD after DH Subjective Date of service: 07/06/16 Principal diagnosis: hypoxemia, laryngospasm episode, cholangitis COPD Interval history: Some sore throat or respiratory complaints Objective Vital Signs - 12hr 07/06/16 07/06/16 07/06/16 08:15 10:00 10:41 Temperature 98 F Pulse Rate [ 86 Bilateral] Pulse Rate [ 84 From Monitor] Respiratory 20 Rate Respiratory 20 Rate [Bilateral ] Blood Pressure 114/60 [Right Arm] O2 Sat by Pulse 97 96 Oximetry 07/06/16 10:51 Temperature Pulse Rate [ 97 H Bilateral] Pulse Rate [ From Monitor] Respiratory Rate Respiratory 20 Rate [Bilateral ] Blood Pressure [Right Arm] O2 Sat by Pulse Oximetry Constitutional: no acute distress, alert, other (obese) ENT: oropharynx moist Neck: no lymphadenopathy Ascultation: Bilateral: rales (sporadic at bases otherwise clear to auscultation ) Percussion: Bilateral: not dull Gastrointestinal: normoactive bowel sounds, soft, non-tender, non-distended, other (obese) Integumentary: normal Extremities: no cyanosis, no edema Neurologic: normal mental status, non-focal exam, CN II-XII normal CBC and BMP: 07/05/16 05:13 07/04/16 05:10 ABG, PT/INR, D-dimer: ABG POC ABG pH 7.442 (7.35-7.45) 07/04/16 14:21 POC ABG pCO2 44.8 (35-45) 07/04/16 14:21 POC ABG pO2 97 (80-105) 07/04/16 14:21 POC ABG HCO3 30.6 07/04/16 14:21 POC ABG Total CO2 32 07/04/16 14:21 POC ABG O2 Sat 98 07/04/16 14:21 PT/INR, D-dimer PT 14.3 Sec. (12.2-14.9) 07/05/16 05:13 INR 1.12 (0.87-1.13) 07/05/16 05:13 Abnormal lab findings: Abnormal Labs 06/29/16 06/29/16 06/29/16 06:17 09:41 13:48 WBC 23.3 H RBC 3.35 L Hgb Hct Plt Count Lymph % (Auto) Scurry % (Auto) Scurry # Seg Neutrophils % Lymphocytes % (Manual) 4.0 L Seg Neutrophils # Seg Neutrophils # Man 16.1 H Lymphocytes # (Manual) 0.9 L Potassium Carbon Dioxide BUN Creatinine Glucose Lactic Acid 4.0 H* 3.0 H* Calcium Total Bilirubin Direct Bilirubin AST ALT Alkaline Phosphatase Total Protein Albumin 06/29/16 06/30/16 06/30/16 13:48 05:58 05:58 WBC 15.5 H RBC 3.34 L Hgb Hct Plt Count 128 L Lymph % (Auto) 9.5 L Scurry % (Auto) Scurry # 1.1 H Seg Neutrophils % 82.0 H Lymphocytes % (Manual) Seg Neutrophils # 12.7 H Seg Neutrophils # Man Lymphocytes # (Manual) Potassium 3.4 L Carbon Dioxide 21 L BUN 6 L Creatinine 0.6 L 0.5 L Glucose 165 H 105 H Lactic Acid Calcium 7.5 L D 7.1 L Total Bilirubin 3.9 H 3.2 H Direct Bilirubin AST 148 H 93 H ALT 136 H 107 H Alkaline Phosphatase 222 H 207 H Total Protein 6.2 L D 6.1 L Albumin 3.1 L 3.0 L 06/30/16 07/02/16 07/02/16 05:58 20:53 20:53 WBC RBC 3.21 L Hgb 9.8 L Hct 29.7 L Plt Count Lymph % (Auto) [place]urry % (Auto) 10.6 H Scurry # 1.1 H Seg Neutrophils % 71.5 H Lymphocytes % (Manual) Seg Neutrophils # Seg Neutrophils # Man Lymphocytes # (Manual) Potassium Carbon Dioxide BUN Creatinine Glucose Lactic Acid Calcium Total Bilirubin 3.1 H 2.4 H Direct Bilirubin 2.6 H 1.4 H AST 95 H ALT 107 H Alkaline Phosphatase 207 H 314 H Total Protein 6.0 L Albumin 2.9 L 3.1 L 07/04/16 07/04/16 07/05/16 05:10 05:10 05:13 WBC RBC 2.93 L 3.31 L Hgb 9.1 L 10.0 L Hct 27.2 L Plt Count 139 L Lymph % (Auto) [place] % (Auto) 11.8 H Scurry # 1.0 H Seg Neutrophils % Lymphocytes % (Manual) Seg Neutrophils # Seg Neutrophils # Man Lymphocytes # (Manual) Potassium 3.4 L Carbon Dioxide BUN 2 L Creatinine 0.5 L Glucose Lactic Acid Calcium 7.6 L Total Bilirubin Direct Bilirubin AST ALT Alkaline Phosphatase Total Protein Albumin 07/05/16 05:29 WBC RBC Hgb Hct Plt Count Lymph % (Auto) Scurry % (Auto) Scurry # Seg Neutrophils % Lymphocytes % (Manual) Seg Neutrophils # Seg Neutrophils # Man Lymphocytes # (Manual) Potassium Carbon Dioxide BUN Creatinine Glucose Lactic Acid Calcium Total Bilirubin 1.3 H Direct Bilirubin 0.8 H AST ALT Alkaline Phosphatase 381 H Total Protein Albumin 3.4 L
[2016-07-06 15:43] VITALS: BP 110/80
== END 2016-07-06 17:30 | disposition home or self-care (01) | DRG 853 ==
LOC: ED 23:48 → 3A 06-29 03:56
PROVIDERS: ADMIT Internal Medicine; ATTEND Internal Medicine
PROC: 0FJB8ZZ Inspection of Hepatobiliary Duct, Via Natural or Artificial Opening Endoscopic (ICD-10-PCS; 2016-06-29)
PROC: 0FC98ZZ Extirpation of Matter from Common Bile Duct, Via Natural or Artificial Opening Endoscopic (ICD-10-PCS; principal; 2016-07-05)
PROC: 0F798ZZ Dilation of Common Bile Duct, Via Natural or Artificial Opening Endoscopic (ICD-10-PCS; 2016-07-05)
PROC: 0FCC8ZZ Extirpation of Matter from Ampulla of Vater, Via Natural or Artificial Opening Endoscopic (ICD-10-PCS; 2016-07-05)
DX: A41.51 Sepsis due to Escherichia coli [E. coli] (principal); J96.01 Acute respiratory failure with hypoxia; J69.0 Pneumonitis due to inhalation of food and vomit; K80.43 Calculus of bile duct with acute cholecystitis with obstruction; K83.3 Fistula of bile duct; F17.210 Nicotine dependence, cigarettes, uncomplicated; J44.9 Chronic obstructive pulmonary disease, unspecified; J38.5 Laryngeal spasm; E66.01 Morbid (severe) obesity due to excess calories; Z82.49 Family history of ischemic heart disease and other diseases of the circulatory system; Z68.38 Body mass index [BMI] 38.0-38.9, adult
CPT/HCPCS: 36415; 36600; 71010; 71020; 74177; 74330; 76705; 78226; 80048; 80053; 80074; 82140; 82803; 83690; 84484; 84703; 85007; 85025; 85027; 85610; 87040; 87076; 87186; 93005; 93010; 94640; 94760; 96361; 96365; 96375; A9537; C1726; J0330; J0692; J1610; J1956; J2250; J2270; J2370; J2405; J2543; J2704; J2920; J3010; J7030; J7040; Q9967

== ENCOUNTER 2016-07-13 09:17 | Day surgery (SDC) | payer MEDICAID ==
--- NOTE | 2016-07-13 09:44 | Anesthesia Consultation ---
Anesthesia Consult and Med Hx Date of service: 07/13/16 - Airway Anesthetic Teeth Evaluation: Edentulous ROM Head & Neck: Adequate Mental/Hyoid Distance: Adequate Mallampati Class: Class I Intubation Access Assessment: Probably Good - Pulmonary Exam CTA: Yes - Cardiac Exam Cardiac Exam: RRR - Pre-Operative Health Status ASA Pre-Surgery Classification: ASA3 Proposed Anesthetic Plan: General - Pulmonary Hx Smoking: Yes (1PPD X 20 YRS) Hx Asthma: No COPD: Yes (HX STATES COPD,BUT PT DENIES) Hx Pneumonia: Yes (ASPIRATION PNEUMONIA FROM ERCP 07/03/16) Hx Sleep Apnea: No (GIA PRE SCREEN LOW RISK) - Endocrine Hx End Stage Renal Disease: No - Other Systems Hx Alcohol Use: No Hx Cancer: No Hx Obesity: Yes - Additional Comments Anesthesia Medical History Comments: DiGeorge syndrome (immune). Aspiration pneumonia 2 weeks ago.
[2016-07-13] MEDS ORDERED: VERSED IV PRN (09:45)
--- NOTE | 2016-07-13 09:45 | Anesthesia Day of Surgery ---
Anesthesia Day of Surgery - Day of Surgery Patient Examined: Yes Patient H&P Reviewed: Yes Patient is NPO: Yes
[2016-07-13] MEDS ORDERED: PEPCID IV NR (10:00)
[2016-07-13] MEDS ORDERED: NACL 0.9% 1000 ML 1,000 ML IV SCH (10:00)
--- NOTE | 2016-07-13 10:30 | Admit Criteria Form ---
Admission Criteria Documentation: AMBULATORY SURGERY EXCEPTION CRITERIA Ambulatory Surgery Exception Criteria ( Place 'X' for any and all applicable criteria): Surgery or procedure performed on ambulatory basis may require inpatient stay for[A] ANY ONE of the following(1)(2)(3)(4)(5)(6)(7)(8)(9): [X] I. A preoperative situation, condition, or finding that warrants inpatient stay as indicated by ANY ONE of the following: [] a) Inpatient care needed because of severity of a disease or condition rather than the surgery (eg, severe cardiac or respiratory disease, severe infection) (15) (16 ) (17) (18) [] b) Emergent procedure (eg, angioplasty for acute ischemia)(19) [] c) Complex surgical approach or situation as indicated by ANY ONE of the following(3): [] i) Open approach needed instead of usual endoscopic, transcatheter, or other less invasive procedure [] ii) Difficult approach because of previous operation [] iii) Airway monitoring required after open neck procedures(20)(21) [] iv) Large mass requiring unusually extensive dissection [] v) Additional complicating feature requiring inpatient care (eg, drain management)(22(23): [X] d) Major surgery in a pt with high anesthetic risk as indicated by ANY ONE of the following (2)(3)(5)(7)(8): [X] i) ASA risk class III or higher (severe systemic disease impairing function) [D] [] ii) Advanced age (eg, older than 85 years)(14)(24) [] iii) Symptomatic heart failure(25) [] iv) Symptomatic asthma or COPD(8)(21) [] v) Morbid obesity with hemodynamic or respiratory problems(20)( 21)(26)(27) [] vi) Obstructive sleep apnea(20)(21) [] vii) Former premature infants who are younger than 60 weeks [] viii) High risk for severe postoperative abnormalities (eg, severe postoperative hypocalcemia after parathyroidectomy for severe hyperparathyroidism)(27)( 28) [] ix) Unstable angina(25) [] e) Drug-related risk requiring inpatient stay as indicated by ANY ONE of the following(5)(10)(14)(32)(33) [] i) Procedure requires discontinuing drugs or other therapy (eg , antiarrhythmic medication, antiseizure medication), which necessitates inpatient observation or treatment.(18)(31) [] ii) Major surgery and high risk drug use as indicated by ANY ONE of the following: [] 1) Active abuse of cocaine or similar drug [] 2) Monoamine oxidase inhibitor use [] 3) Other drug identified as posing risk [] f) Inadequate outpatient care situation as indicated by ANY ONE of the following(5)(10)(14)(32)(33) [] i) Patient lives remote from medical facility and procedure has urgent complication potential, and temporary nearby residence cannot be arranged [] ii) Patient will have postprocedure incapacitation and inadequate assistance at home, or alternative level of care cannot be arranged. [] iii) Patient will have long general anesthesia or procedure side effect resolution time, and competent person to stay with patient on first postoperative night at home or alternative level of care cannot be arranged. []iv) Other inadequate outpatient situation that cannot be handled by other means [] II. A perioperative event, condition, or finding that warrants inpatient stay as indicated by ANY ONE of the following (1)(2)(3): [] a) Inadequate physiologic recovery: cardiovascular, respiratory, or hemodynamic status not normal or near preoperative baseline(18) [] b) Hemodynamic instability [] c) Patient not alert with near normal or baseline mental status [] d) Temperature not normal or as expected and not appropriate for outpatient treatment of condition [] e) Ambulatory or appropriate activity level status not yet achieved post procedure [E](34)(35)(36) [] f) Operative site not appropriate (eg, unexpected or excessive drainage or bleeding) [] g) Postoperative effects not resolved or adequately managed (eg, significant pain or vomiting not appropriate for outpatient or next level of care)(10)(12) [] h) Complicating features requiring inpatient care as indicated by ANY ONE of the following(37): [] i) Severe complications of procedure (eg, bowel injury, airway compromise, vascular injury,severe hemorrhage) [] ii) Extensive (eg, dissection far beyond usual scope of procedure ) or prolonged (eg, 120 minutes beyond usual) surgery needed requiring inpatient postoperative care [] iii) Conversion to an open or complex procedure that requires inpatient care (eg, open vs laparoscopic cholecystectomy, abdominal vs vaginal hysterectomy)(38) [] iv) Comorbid condition or test result identified during or post procedure that requires inpatient care (7) [] v) Malignant hyperthermia(30) [] vi) Other complicating feature requiring inpatient care(22)(23) Inpatient stay may be needed until ALL of the following are present (1)(2)(3)(4) (5)(6)(10)(14)(33)(40): []a) Physiologic recovery: cardiovascular, respiratory, and hemodynamic status normal or near preoperative baseline []b) Hemodynamic stability []c) Patient alert, with near normal or baseline mental status []d) Temperature appropriate: patient afebrile or temperature appropriate for outpt treatment of condition []e) Activity level appropriate: ambulatory or appropriate activity level post procedure []f) Operative site appropriate as indicated by ALL of the following: []i) Site dry or with expected drainage []ii) Any blood noted is as expected for procedure. []g) Postoperative effects resolved or managed as indicated by ALL of the following: []i) Pain management appropriate for outpatient (or next level of) care(10) []ii) Minimal nausea and vomiting: if present, successfully treated with oral medication(12) []iii) Headache, dizziness, or drowsiness (if present) are mild. []h) Voiding status acceptable as indicated by ANY ONE of the following: []i) Voiding spontaneously []ii) No voiding but instructions given for follow-up in 6 to 8 hours []iii) Urinary catheter in place, and instructions given for follow-up []i) Complicating features requiring inpatient care manageable at a lower level of care(37) []j) Comorbid conditions manageable at a lower level of care(37) The original [employer] content created by [employer] has been revised. The portions of the content which have been revised are identified through the use of italic text or in bold, and [employer] has neither reviewed nor approved the modified material. All other unmodified content is copyright [employer]. Please see references footnoted in the original [employer] edition 2016
[2016-07-13 11:19] LABS: Albumin 4.1 g/dL (3.9-5); Albumin/Globulin Ratio 1.2 %; Bilirubin,Direct 0.4 mg/dL (0-0.2); Bilirubin,Indirect 0.4 mg/dL; Bilirubin,Total 0.8 mg/dL (0.1-1.2); Total Protein 7.4 g/dL (6.3-8.2)
[2016-07-13] MEDS ORDERED: ANCEF/STERILE WATER 2 GM/20 ML IV NR (11:21)
[2016-07-13] MEDS ORDERED: MARCAINE 0.5% 30 ML INFILTRATI ONE (12:42)
[2016-07-13] MEDS ORDERED: ZOFRAN ONE ×2 (13:50→18:02)
[2016-07-13] MEDS ORDERED: DIPRIVAN 10 MG/ML IV ONE ×2 (13:50→14:48)
[2016-07-13] MEDS ORDERED: SUBLIMAZE ONE (13:51)
[2016-07-13] MEDS ORDERED: MARCAINE 0.5% INFILTRATI ONE (14:15)
[2016-07-13] MEDS ORDERED: NACL 0.9% IR ONE ×2 (14:15)
[2016-07-13] MEDS ORDERED: XYLOCAINE MPF 2% ONE (14:24)
[2016-07-13] MEDS ORDERED: ZEMURON IV ONE (14:24)
[2016-07-13] MEDS ORDERED: ROBINUL ONE (14:30)
[2016-07-13] MEDS ORDERED: NACL 0.9% 1000 ML 1,000 ML ONE (14:31)
[2016-07-13] MEDS ORDERED: NEOSTIGMINE ONE (14:31)
[2016-07-13] MEDS ORDERED: ePHEDrine SULFATE ONE ×2 (14:35→17:54)
--- NOTE | 2016-07-13 15:12 | Discharge Summary ---
Short Stay Discharge Plan Activity: advance as tolerated Weight Bearing Status: Full Weight Bearing Diet: low fat Wound: per your surgeon's advice Follow up with: RAIN NELSON MD [Primary Care Provider] - 7 Days
[2016-07-13] MEDS ORDERED: NORCO 5/325 PO PRN (15:14)
[2016-07-13] MEDS ORDERED: ZOFRAN IV PRN ×2 (15:35→19:01)
--- NOTE | 2016-07-13 15:43 | Post Anesthesia Evaluation ---
- Post Anesthesia Evaluation Patient Participated: Yes Airway Patent: Yes Stable Respiratory Function: Yes Nausea/Vomiting: No Temp > 96.8F: Yes Pain Manageable: Yes Adequeate Hydration: Yes Anesthesia Complications: No
[2016-07-13] MEDS: DILAUDID IV PRN ×2 (15:52→16:05)
[2016-07-13] MEDS ORDERED: NACL 0.9% 1000 ML 1,000 ML IV ONE (17:49)
[2016-07-13] MEDS ORDERED: ePHEDrine SULFATE IV PRN (17:50)
[2016-07-13] MEDS ORDERED: ePHEDrine SULFATE IM PRN (17:55)
[2016-07-13] MEDS ORDERED: REGLAN IV PRN (19:01)
[2016-07-13] MEDS ORDERED: REGLAN ONE (19:02)
--- NOTE | 2016-07-13 19:40 | Operative Report ---
PREOPERATIVE DIAGNOSES: Gallbladder disease with stone with choledocholithiasis, status post endoscopic retrograde cholangiopancreatography and magnetic resonance cholangiopancreatography. POSTOPERATIVE DIAGNOSES: Gallbladder disease with stone with choledocholithiasis, status post endoscopic retrograde cholangiopancreatography and magnetic resonance cholangiopancreatography. SURGERY: Laparoscopic cholecystectomy. ANESTHESIA: General. BLOOD LOSS: Minimal. FINDINGS: The patient had a contracted gallbladder that was stuck to the liver itself. I was able to isolate and see both cystic duct at its junction with the common bile duct. The cystic duct contained one stone, about 5 x 5 mm. I was able to endoclip the cystic duct within 1 cm from the junction with the common bile duct. This examination did not reveal anything specific. DESCRIPTION OF PROCEDURE: With the patient in supine position, I prepped and draped in usual fashion. I made an incision in the right upper quadrant. With the Veress needle, I was able to do CO2 pressure of 15 for which #5 trocar was inserted. With use of the camera, I was able to introduce 2 more trocars, #5 in the right upper quadrant and #5 in the infraumbilical area and #10 in the mid upper epigastrium. The gallbladder could be seen. It was a little bit contracted and stuck to the right lobe of the liver. With a grasper I was able to grasp it from the fundus and ____ area at which point I was able to dissect the cystic duct slowly, then four Hemoclips were applied large into the area, sustaining no bleeding from the insertion site and no injury to any of the suctioned area. Then the gallbladder was removed in toto using electrocautery. The cystic artery was barely about 0.5 to 1 mm. So, this was cauterized and then the gallbladder was removed in toto using electrocautery in the usual fashion, removed it via the larger trocar with the use of an EndoCatch. After that maneuvering, I irrigated the area with normal saline. I was well satisfied with the operation, removing all the trocars one by one, ascertained no bleeding. Then, the fascia was closed with 0 Vicryl [id number] x 2 and the multiple skins with 4-0 Vicryl and bandage. The patient was then transferred to the recovery room in good condition. JOB# [id number] BRENNAN/EDGARDO
[2016-07-13 21:32] VITALS: BP 108/60
--- NOTE | 2016-07-13 22:49 | Discharge Summary ---
FINAL DIAGNOSIS: Gallbladder disease with stones. HOSPITAL COURSE: 1. Choledocholithiasis, status post ERCP x2. 2. Bilateral pneumonia by history, resolved. This patient came to have her gallbladder taken out, which was in this hospital two weeks ago. She was evaluated by GI, Dr. Newsome and she had ERCP. At the beginning, it was not successful because she had pneumonia. Then, it was handled by Dr. Newsome. Please read his note. This was about 10 days ago. She came at this time for definitive surgical intervention in terms of cholecystectomy, this was done laparoscopically. Postop, she was transferred to the recovery room. She was discharged home to be seen in my office in 10 days. I gave a prescription for Vicodin to call me if she has any problem, otherwise to be on a low-fat diet as above. JOB# [id number] BRENNAN/EDGARDO
== END 2016-07-13 09:18 | disposition home or self-care (01) ==
LOC: OR 09:17
PROVIDERS: ATTEND Surgery
DX: K80.64 Calculus of gallbladder and bile duct with chronic cholecystitis without obstruction (principal); F17.210 Nicotine dependence, cigarettes, uncomplicated; J44.9 Chronic obstructive pulmonary disease, unspecified; E66.9 Obesity, unspecified; Z68.34 Body mass index [BMI] 34.0-34.9, adult; Z87.01 Personal history of pneumonia (recurrent); Z82.49 Family history of ischemic heart disease and other diseases of the circulatory system
CPT/HCPCS: 36415; 47562; 80074; 81025; 82150; 88304; A4217; J0690; J1170; J2250; J2405; J2704; J2710; J2765; J3010; J7030

== ENCOUNTER 2018-04-27 16:38 | Inpatient (IN) | payer MEDICAID ==
[2018-04-27] MEDS ORDERED: NACL 0.9% 500 ML 500 ML IV ONE (16:59)
[2018-04-27 17:10] LABS: Basophils # (Auto) 0.1 K/mm3 (0.0-0.1); Basophils % (Auto) 0.6 % (0.0-1.8); Eosinophils % (Auto) 0.1 % (0.0-4.3); Hematocrit 40.7 % (30.3-42.9); Hemoglobin 13.3 gm/dl (10.1-14.3); Lymphocytes # (Auto) 2.6 K/mm3 (1.2-5.4); Lymphocytes % (Auto) 13.7 % (13.4-35.0); Mean Corpuscular HGB Conc 33 % (30-34); Mean Corpuscular Volume 92 fl (79-97); Monocytes # (Auto) 1.6 K/mm3 (0.0-0.8); Monocytes % (Auto) 8.2 % (0.0-7.3); Platelet Count 227 K/mm3 (140-440); Red Blood Count 4.41 M/mm3 (3.65-5.03); Red Cell Distribution Width 13.7 % (13.2-15.2)
[2018-04-27] MEDS ORDERED: IBUPROFEN PO ONE (17:18)
[2018-04-27 17:23] LABS: INR 1.04 (0.87-1.13)
[2018-04-27 17:35] LABS: Alanine Aminotransferase 15 units/L (7-56); Albumin 4.1 g/dL (3.9-5); BUN/Creatinine Ratio 7; Blood Urea Nitrogen 4 mg/dL (7-17); Calcium 8.8 mg/dL (8.4-10.2); Hemolysis Index 4
[2018-04-27] MEDS ORDERED: LEVAQUIN 750MG/150ML 750 MG/150 ML BAG IV ONE ×2 (19:11→23:53)
[2018-04-27] MEDS ORDERED: NACL 0.9% 1000 ML 1,000 ML IV ONE (19:11)
[2018-04-27] MEDS ORDERED: TORADOL IV ONE (19:11)
--- NOTE | 2018-04-27 19:18 | XRay Report ---
FINAL REPORT EXAM: XR CHEST ROUTINE 2V HISTORY: possible Sepsis TECHNIQUE: Chest PA and lateral PRIORS: Comparison is dated June 29, 2016 FINDINGS: There is patchy increased opacity within the left lower lobe distribution new since the prior exam. C ardiac and mediastinal contours are unremarkable. Pulmonary vasculature is unremarkable. No evidence for pleural effusion. IMPRESSION: Left lower lobe infiltrate suspicious for pneumonia
--- NOTE | 2018-04-27 19:19 | Emergency Department Report ---
ED Fever HPI - General Chief Complaint: Fever Stated Complaint: MESFIN/VOMITING Time Seen by Provider: 04/27/18 18:43 - History of Present Illness Initial Comments: Patient is a 37-year-old female with a past medical history of DiGeorge syndrome who is presenting with cough and congestion for the last 2-3 days. Patient states that she now also has some nausea vomiting. Patient states that she has a cough is nonproductive and there is no pleuritic component of this pain. Patient states she's had some subjective fevers chills. Patient has been unable to keep down food or drink in the last 2 days. Patient denies a ny diarrhea sore throat but does also have a mild headache. Patient denies any bodyaches. ED Review of Systems ROS: Stated complaint: MESFIN/VOMITING Other details as noted in HPI Comment: All other systems reviewed and negative ED Past Medical Hx - Past Medical History Hx Congestive Heart Failure: No Hx Diabetes: No Hx Asthma: No Hx COPD: No (HX STATES COPD,BUT PT DENIES) Hx HIV: No Additional medical history: D'Yandel Syndrome - Surgical History Hx Cholecystectomy: Yes - Social History Smoking Status: Current Every Day Smoker Substance Use Type: None - Medications Home Medications: Home Medications Medication Instructions Recorded Confirmed Last Taken Type Budesoni/Formotero 160-4.5(Nf) 2 puff IH BID #1 inha 07/06/16 07/12/16 Unknown Rx [Symbicort 160-4.5 (Nf)] Zolpidem [Ambien] 10 mg PO QHS #30 tablet 07/06/16 07/12/16 Unknown Rx levoFLOXacin [Levaquin TAB] 500 mg PO QDAY #10 tablet 07/06/16 07/12/16 Unknown Rx HYDROcodone/APAP 5-325 [[place] 1 each PO Q6HR PRN #24 tablet 07/13/16 Unknown Rx 5/325] ED Physical Exam - General Limitations: No Limitations General appearance: alert, in no apparent distress - Head Head exam: Present: atraumatic, normocephalic - Eye Eye exam: Present: normal appearance - ENT ENT exam: Present: mucous membranes moist - Neck Neck exam: Present: normal inspection - Respiratory Respiratory exam: Present: normal lung sounds bilaterally, rhonchi. Absent: respiratory distress, wheezes, rales, stridor, chest wall tenderness - Cardiovascular Cardiovascular Exam: Present: normal rhythm, tachycardia, normal heart sounds. Absent: systolic murmur, diastolic murmur, rubs, gallop - GI/Abdominal GI/Abdominal exam: Present: soft, normal bowel sounds. Absent: distended, tenderness, guarding, rebound, rigid - Extremities Exam Extremities exam: Present: normal inspection - Back Exam Back exam: Present: normal inspection - Neurological Exam Neurological exam: Present: alert, oriented X3 - Psychiatric Psychiatric exam: Present: normal affect, normal mood - Skin Skin exam: Present: warm, dry, intact, normal color. Absent: rash ED Course Vital Signs 04/27/18 04/27/18 16:55 18:39 Temperature 101.6 F H Pulse Rate 135 H Respiratory 26 H 26 H Rate Blood Pressure 109/73 O2 Sat by Pulse 91 91 Oximetry ED Medical Decision Making - Lab Data Result diagrams: 04/27/18 17:02 04/27/18 17:02 Lab Results 04/27/18 04/27/18 04/27/18 Range/Units 17:02 17:02 17:02 WBC 19.0 H (4.5-11.0) K/mm3 RBC 4.41 (3.65-5.03) M/mm3 Hgb 13.3 (10.1-14.3) gm/dl Hct 40.7 (30.3-42.9) % MCV 92 (79-97) fl MCH 30 (28-32) pg MCHC 33 (30-34) % RDW 13.7 (13.2-15.2) % Plt Count 227 (140-440) K/mm3 Lymph % (Auto) 13.7 (13.4-35.0) % [place] % (Auto) 8.2 H (0.0-7.3) % Eos % (Auto) 0.1 (0.0-4.3) % Baso % (Auto) 0.6 (0.0-1.8) % Lymph # 2.6 (1.2-5.4) K/mm3 [place] # 1.6 H (0.0-0.8) K/mm3 Eos # 0.0 (0.0-0.4) K/mm3 Baso # 0.1 (0.0-0.1) K/mm3 Seg Neutrophils % 77.4 H (40.0-70.0) % Seg Neutrophils # 14.7 H (1.8-7.7) K/mm3 PT 14.0 (12.2-14.9) Sec. INR 1.04 (0.87-1.13) VBG pH (7.320-7.420) Sodium 134 L (137-145) mmol/L Potassium 3.3 L (3.6-5.0) mmol/L Chloride 95.4 L (98-107) mmol/L Carbon Dioxide 23 (22-30) mmol/L Anion Gap 19 mmol/L BUN 4 L (7-17) mg/dL Creatinine 0.6 L (0.7-1.2) mg/dL Estimated GFR > 60 ml/min BUN/Creatinine Ratio 7 % Glucose 314 H (65-100) mg/dL Lactic Acid (0.7-2.0) mmol/L Calcium 8.8 (8.4-10.2) mg/dL Total Bilirubin 0.70 (0.1-1.2) mg/dL AST 12 (5-40) units/L ALT 15 (7-56) units/L Alkaline Phosphatase 147 H (35-129) units/L Total Protein 8.5 H (6.3-8.2) g/dL Albumin 4.1 (3.9-5) g/dL Albumin/Globulin Ratio 0.9 % 04/27/18 04/27/18 Range/Units 17:02 17:02 WBC (4.5-11.0) K/mm3 RBC (3.65-5.03) M/mm3 Hgb (10.1-14.3) gm/dl Hct (30.3-42.9) % MCV (79-97) fl MCH (28-32) pg MCHC (30-34) % RDW (13.2-15.2) % Plt Count (140-440) K/mm3 Lymph % (Auto) (13.4-35.0) % [place] % (Auto) (0.0-7.3) % Eos % (Auto) (0.0-4.3) % Baso % (Auto) (0.0-1.8) % Lymph # (1.2-5.4) K/mm3 [place] # (0.0-0.8) K/mm3 Eos # (0.0-0.4) K/mm3 Baso # (0.0-0.1) K/mm3 Seg Neutrophils % (40.0-70.0) % Seg Neutrophils # (1.8-7.7) K/mm3 PT (12.2-14.9) Sec. INR (0.87-1.13) VBG pH 7.433 H (7.320-7.420) Sodium (137-145) mmol/L Potassium (3.6-5.0) mmol/L Chloride (98-107) mmol/L Carbon Dioxide (22-30) mmol/L Anion Gap mmol/L BUN (7-17) mg/dL Creatinine (0.7-1.2) mg/dL Estimated GFR ml/min BUN/Creatinine Ratio % Glucose (65-100) mg/dL Lactic Acid 1.30 (0.7-2.0) mmol/L Calcium (8.4-10.2) mg/dL Total Bilirubin (0.1-1.2) mg/dL AST (5-40) units/L ALT (7-56) units/L Alkaline Phosphatase (35-129) units/L Total Protein (6.3-8.2) g/dL Albumin (3.9-5) g/dL Albumin/Globulin Ratio % - Radiology Data Radiology results: image reviewed interpreted by me: Chest x-ray shows a left lower lobe infiltrate consistent with pneumonia - Medical Decision Making Patient with tachycardia and tachypnea with a fever is being sepsis criteria. Please of blood pressures within normal limits and is not requiring aggressive fluid hydration. Patient will be started on Levaquin for her pneumonia. Patient be admitted to the hospitalist service. Critical Care Time: Yes (30) Critical care attestation.: If time is entered above; I have spent that time in minutes in the direct care of this critically ill patient, excluding procedure time. ED Disposition Clinical Impression: Pneumonia Disposition: -09 OP ADMIT IP TO THIS HOSP Is pt being admited?: Yes Does the pt Need Aspirin: No Condition: Stable Instructions: Bacterial Pneumonia (ED) Referrals: PRIMARY CARE, [Primary Care Provider] - 3-5 Days Time of Disposition: 19:19
--- NOTE | 2018-04-27 19:48 | History and Physical Report ---
History of Present Illness Date of examination: 04/27/18 Date of admission: 04/27/2018 Chief complaint: N/v, nasal congestion and SOB History of present illness: Pt is a 37 y/o WF with PMHx of DiGeorge syndrome, immune compromised who presents to the ER with c/o cough and congestion for the last 2-3 days. Pt states that the symptoms started 2 weeks ago with nausea and vomiting, she could not tolerate any food and was vomiting constantly. She states that 2 days ago (on Saturday), she developed a nagging cough with greenish sputum production, chest congestion and SOB, her family decided to take her to the ER. Pt c/o SOB, congestion, chills, nausea/vomiting, mild headache, she denies fever, denies chest pain, denies abdominal pain, denies diarrhea. Pt states that she has multiple infections in the past due to her immune disorder (Digeorge) syndrome, she states that she did not feel any fever at home. In the ER, her temp was 101.6, she had a chest xray that showed LLL infiltrate consistent with pneumonia. Patient was started on IV antibiotic in the ER and admitted for further evaluation and treatment. Past History Past Medical History: other (Digeorge syndrome) Past Surgical History: Social history: , lives with family Family history: no significant family history Medications and Allergies Allergies Allergy/AdvReac Type Severity Reaction Status Date / Time No Known Allergies Allergy Verified 06/29/16 00:01 Home Medications Medication Instructions Recorded Confirmed Last Taken Type Budesoni/Formotero 160-4.5(Nf) 2 puff IH BID #1 inha 07/06/16 07/12/16 Unknown Rx [Symbicort 160-4.5 (Nf)] Zolpidem [Ambien] 10 mg PO QHS #30 tablet 07/06/16 07/12/16 Unknown Rx levoFLOXacin [Levaquin TAB] 500 mg PO QDAY #10 tablet 07/06/16 07/12/16 Unknown Rx HYDROcodone/APAP 5-325 [[place] 1 each PO Q6HR PRN #24 tablet 07/13/16 Unknown Rx 5/325] Active Meds: Active Medications Levofloxacin/Dextrose (Levaquin 750mg/150ml) 750 mg in 150 mls @ 100 mls/hr IV ONCE ONE Stop: 04/27/18 20:40 Sodium Chloride (Nacl 0.9% 1000 Ml) 1,000 mls @ 999 mls/hr IV BOLUS ONE Stop: 04/27/18 20:11 Review of Systems Constitutional: chills, poor appetite Ears, nose, mouth and throat: sore throat Breasts: deferred Cardiovascular: shortness of breath Respiratory: cough, cough with sputum, congestion Gastrointestinal: nausea, vomiting Exam - Constitutional Vitals: Temp Pulse Resp BP Pulse Ox 101.6 F H 135 H 26 H 109/73 91 04/27/18 16:55 04/27/18 16:55 04/27/18 18:39 04/27/18 16:55 04/27/18 18:39 General appearance: Present: no acute distress - EENT Eyes: Present: EOM intact ENT: hearing intact - Neck Neck: Present: normal ROM - Respiratory Respiratory effort: normal Respiratory: bilateral: diminished - Extremities Extremities: No edema, Full ROM Peripheral Pulses: within normal limits - Abdominal General gastrointestinal: Present: non-tender, non-distended Female genitourinary: Present: deferred - Integumentary Integumentary: Present: warm, dry - Musculoskeletal Musculoskeletal: strength equal bilaterally - Psychiatric Psychiatric: cooperative - Neurologic Neurologic: moves all extremities Results - Labs CBC & Chem 7: 04/27/18 17:02 04/27/18 17:02 Labs: Laboratory Last Values WBC 19.0 K/mm3 (4.5-11.0) H 04/27/18 17:02 RBC 4.41 M/mm3 (3.65-5.03) 04/27/18 17:02 Hgb 13.3 gm/dl (10.1-14.3) 04/27/18 17:02 Hct 40.7 % (30.3-42.9) 04/27/18 17:02 MCV 92 fl (79-97) 04/27/18 17:02 MCH 30 pg (28-32) 04/27/18 17:02 MCHC 33 % (30-34) 04/27/18 17:02 RDW 13.7 % (13.2-15.2) 04/27/18 17:02 Plt Count 227 K/mm3 (140-440) 04/27/18 17:02 Lymph % (Auto) 13.7 % (13.4-35.0) 04/27/18 17:02 [place] % (Auto) 8.2 % (0.0-7.3) H 04/27/18 17:02 Eos % (Auto) 0.1 % (0.0-4.3) 04/27/18 17:02 Baso % (Auto) 0.6 % (0.0-1.8) 04/27/18 17:02 Lymph # 2.6 K/mm3 (1.2-5.4) 04/27/18 17:02 [place] # 1.6 K/mm3 (0.0-0.8) H 04/27/18 17:02 Eos # 0.0 K/mm3 (0.0-0.4) 04/27/18 17:02 Baso # 0.1 K/mm3 (0.0-0.1) 04/27/18 17:02 Seg Neutrophils % 77.4 % (40.0-70.0) H 04/27/18 17:02 Seg Neutrophils # 14.7 K/mm3 (1.8-7.7) H 04/27/18 17:02 PT 14.0 Sec. (12.2-14.9) 04/27/18 17:02 INR 1.04 (0.87-1.13) 04/27/18 17:02 VBG pH 7.433 (7.320-7.420) H 04/27/18 17:02 Sodium 134 mmol/L (137-145) L 04/27/18 17:02 Potassium 3.3 mmol/L (3.6-5.0) L 04/27/18 17:02 Chloride 95.4 mmol/L (98-107) L 04/27/18 17:02 Carbon Dioxide 23 mmol/L (22-30) 04/27/18 17:02 Anion Gap 19 mmol/L 04/27/18 17:02 BUN 4 mg/dL (7-17) L 04/27/18 17:02 Creatinine 0.6 mg/dL (0.7-1.2) L 04/27/18 17:02 Estimated GFR > 60 ml/min 04/27/18 17:02 BUN/Creatinine Ratio 7 % 04/27/18 17:02 Glucose 314 mg/dL (65-100) H 04/27/18 17:02 Lactic Acid 1.30 mmol/L (0.7-2.0) 04/27/18 17:02 Calcium 8.8 mg/dL (8.4-10.2) 04/27/18 17:02 Total Bilirubin 0.70 mg/dL (0.1-1.2) 04/27/18 17:02 AST 12 units/L (5-40) 04/27/18 17:02 ALT 15 units/L (7-56) 04/27/18 17:02 Alkaline Phosphatase 147 units/L (35-129) H 04/27/18 17:02 Total Protein 8.5 g/dL (6.3-8.2) H 04/27/18 17:02 Albumin 4.1 g/dL (3.9-5) 04/27/18 17:02 Albumin/Globulin Ratio 0.9 % 04/27/18 17:02 Assessment and Plan Assessment and plan: 1. Acute febrile illness 2. Pneumonia (CAP) 3. H/o DiGeorge Syndrome 4. Hyperglycemia 5. Hypokalemia 6. Immune deficiency Plan: Pt is admitted to [facility] for pneumonia Continue nebulizer treatment PRN for SOB CAP protocol with Rocephin and Azithromax O2 to keep sat > 92% Cough suppressant with Tessalon perle Accu check ACHS with insulin per sliding scale Glycemic management with insulin per sliding scale Replace potassium Hemoglobin A1C Resume home meds Further plan per hospital course Plan of care was d/w pt, voiced understanding Pt's condition and plan of care discussed with Dr Pittman Advance Directives: Yes VTE prophylaxis?: Chemical Plan of care discussed with patient/family: Yes
[2018-04-27] MEDS ORDERED: REGLAN IV PRN (19:50)
[2018-04-27] MEDS ORDERED: MORPHINE IV PRN (19:50)
[2018-04-27] MEDS ORDERED: PROVENTIL IH PRN (19:50)
[2018-04-27] MEDS ORDERED: SODIUM CHLORIDE FLUSH SYRINGE 10 ML IV PRN (19:50)
[2018-04-27] MEDS ORDERED: ZOFRAN IV PRN (19:50)
[2018-04-27] MEDS: DUONEB *Not for PRN Use IH SCH (20:00)
[2018-04-27] MEDS ORDERED: NACL 0.9% 1000 ML 1,000 ML IV SCH (21:00)
[2018-04-27] MEDS: ROCEPHIN/NS 2 GM/100 ML 2 GM/100 ML BAG IV SCH (21:31)
[2018-04-27] MEDS: ZITHROMAX 500 MG in NACL 0.9% 250ML 250 ML IV SCH (22:31)
[2018-04-27] MEDS ORDERED: TORADOL ONE (22:56)
[2018-04-27] MEDS ORDERED: NACL 0.9% 1000 ML 1,000 ML ONE (22:56)
[2018-04-27 23:31] LABS: Bacteria,Urine 1+ /HPF (Negative); Bilirubin,Urine NEG (Negative); Blood,Urine LG (Negative); Color,Urine Yellow (Yellow); Hyaline Casts,Urine 1 /LPF; Mucus,Urine FEW /HPF; Urobilinogen,Urine < 2.0 mg/dL (<2.0)
[2018-04-27] MEDS ORDERED: HumuLIN R ONE (23:39)
[2018-04-27 23:41] LABS: HCG Qualitative,Urine Negative (Negative)
[2018-04-27] MEDS: HumuLIN R SUB-Q SCH (23:48)
[2018-04-27] MEDS: SODIUM CHLORIDE FLUSH SYRINGE 10 ML IV SCH (23:49)
[2018-04-27] MEDS: TESSALON PERLES PO SCH (23:54)
[2018-04-28] MEDS ORDERED: NACL 0.9% 1000 ML 1,000 ML IV SCH (01:32)
[2018-04-28] MEDS ORDERED: TYLENOL PO PRN (01:32)
[2018-04-28] MEDS ORDERED: SODIUM CHLORIDE FLUSH SYRINGE 10 ML IV SCH (01:32)
[2018-04-28] MEDS ORDERED: ZOFRAN IV PRN (01:32)
[2018-04-28] MEDS: TESSALON PERLES PO SCH ×4 (01:58→22:40)
[2018-04-28] MEDS: DUONEB *Not for PRN Use IH SCH ×4 (02:28→21:25)
[2018-04-28 04:58] LABS: Basophils # (Auto) 0.1 K/mm3 (0.0-0.1); Basophils % (Auto) 0.9 % (0.0-1.8); Eosinophils # (Auto) 0.1 K/mm3 (0.0-0.4); Eosinophils % (Auto) 0.8 % (0.0-4.3); Hematocrit 35.3 % (30.3-42.9); Hemoglobin 11.5 gm/dl (10.1-14.3); Lymphocytes # (Auto) 1.8 K/mm3 (1.2-5.4); Lymphocytes % (Auto) 13.9 % (13.4-35.0); Mean Corpuscular HGB Conc 32 % (30-34); Mean Corpuscular Volume 93 fl (79-97); Monocytes # (Auto) 1.1 K/mm3 (0.0-0.8); Monocytes % (Auto) 8.3 % (0.0-7.3); Platelet Count 184 K/mm3 (140-440); Red Blood Count 3.81 M/mm3 (3.65-5.03)
[2018-04-28 05:22] LABS: BUN/Creatinine Ratio 10; Blood Urea Nitrogen 5 mg/dL (7-17); Calcium 7.5 mg/dL (8.4-10.2); Hemolysis Index 1
[2018-04-28] MEDS: HumuLIN R SUB-Q SCH ×4 (08:48→22:37)
[2018-04-28] MEDS: TYLENOL PO PRN ×2 (08:51→19:55)
[2018-04-28] MEDS: SODIUM CHLORIDE FLUSH SYRINGE 10 ML IV SCH ×2 (11:43→22:40)
--- NOTE | 2018-04-28 12:17 | Progress Note ---
Assessment and Plan Assessment and plan: Sepsis. Present on admission. Patient meets criteria given the leukocytosis, tachycardia and diagnosis of pneumonia. Continue IV antibiotics and follow-up blood cultures. Trend lactic acid levels. Community-acquired left lower lobe pneumonia. Continue IV antibiotics and follow-up serial chest x-ray. History of DiGeorge syndrome. COPD. Compensated. History Interval history: No new issues overnight. Patient still complains of cough. Hospitalist Physical - Constitutional Vitals: Temp Pulse Resp BP Pulse Ox 97.2 F L 113 H 14 147/68 95 04/28/18 08:00 04/28/18 09:50 04/28/18 09:50 04/28/18 09:50 04/28/18 09:50 General appearance: Present: no acute distress - EENT Eyes: Present: PERRL, EOM intact ENT: hearing intact, clear oral mucosa, dentition normal - Neck Neck: Present: supple, normal ROM - Respiratory Respiratory effort: normal Respiratory: bilateral: CTA - Cardiovascular Rhythm: regular Heart Sounds: Present: S1 & S2. Absent: gallop, rub - Extremities Extremities: no ischemia, No edema, Full ROM - Abdominal General gastrointestinal: soft, non-tender, non-distended, normal bowel sounds - Integumentary Integumentary: Present: clear, warm, dry - Neurologic Neurologic: CNII-XII intact, moves all extremities Results - Labs CBC & Chem 7: 04/28/18 04:34 04/28/18 04:34 Labs: Laboratory Last Values WBC 12.7 K/mm3 (4.5-11.0) H 04/28/18 04:34 RBC 3.81 M/mm3 (3.65-5.03) 04/28/18 04:34 Hgb 11.5 gm/dl (10.1-14.3) 04/28/18 04:34 Hct 35.3 % (30.3-42.9) 04/28/18 04:34 MCV 93 fl (79-97) 04/28/18 04:34 MCH 30 pg (28-32) 04/28/18 04:34 MCHC 32 % (30-34) 04/28/18 04:34 RDW 14.0 % (13.2-15.2) 04/28/18 04:34 Plt Count 184 K/mm3 (140-440) 04/28/18 04:34 Lymph % (Auto) 13.9 % (13.4-35.0) 04/28/18 04:34 [place] % (Auto) 8.3 % (0.0-7.3) H 04/28/18 04:34 Eos % (Auto) 0.8 % (0.0-4.3) 04/28/18 04:34 Baso % (Auto) 0.9 % (0.0-1.8) 04/28/18 04:34 Lymph # 1.8 K/mm3 (1.2-5.4) 04/28/18 04:34 [place] # 1.1 K/mm3 (0.0-0.8) H 04/28/18 04:34 Eos # 0.1 K/mm3 (0.0-0.4) 04/28/18 04:34 Baso # 0.1 K/mm3 (0.0-0.1) 04/28/18 04:34 Seg Neutrophils % 76.1 % (40.0-70.0) H 04/28/18 04:34 Seg Neutrophils # 9.7 K/mm3 (1.8-7.7) H 04/28/18 04:34 PT 14.0 Sec. (12.2-14.9) 04/27/18 17:02 INR 1.04 (0.87-1.13) 04/27/18 17:02 VBG pH 7.433 (7.320-7.420) H 04/27/18 17:02 Sodium 138 mmol/L (137-145) 04/28/18 04:34 Potassium 3.0 mmol/L (3.6-5.0) L 04/28/18 04:34 Chloride 102.0 mmol/L (98-107) 04/28/18 04:34 Carbon Dioxide 21 mmol/L (22-30) L 04/28/18 04:34 Anion Gap 18 mmol/L 04/28/18 04:34 BUN 5 mg/dL (7-17) L 04/28/18 04:34 Creatinine 0.5 mg/dL (0.7-1.2) L 04/28/18 04:34 Estimated GFR > 60 ml/min 04/28/18 04:34 BUN/Creatinine Ratio 10 % 04/28/18 04:34 Glucose 172 mg/dL (65-100) H 04/28/18 04:34 POC Glucose 230 (70-105) H 04/27/18 23:33 Lactic Acid 0.80 mmol/L (0.7-2.0) 04/27/18 19:51 Calcium 7.5 mg/dL (8.4-10.2) L 04/28/18 04:34 Total Bilirubin 0.70 mg/dL (0.1-1.2) 04/27/18 17:02 AST 12 units/L (5-40) 04/27/18 17:02 ALT 15 units/L (7-56) 04/27/18 17:02 Alkaline Phosphatase 147 units/L (35-129) H 04/27/18 17:02 Total Protein 8.5 g/dL (6.3-8.2) H 04/27/18 17:02 Albumin 4.1 g/dL (3.9-5) 04/27/18 17:02 Albumin/Globulin Ratio 0.9 % 04/27/18 17:02 Urine Color Yellow (Yellow) 04/27/18 23:07 Urine Turbidity Slightly-cloudy (Clear) 04/27/18 23:07 Urine pH 5.0 (5.0-7.0) 04/27/18 23:07 Ur Specific [place] 1.028 (1.003-1.030) 04/27/18 23:07 Urine Protein 100 mg/dl mg/dL (Negative) 04/27/18 23:07 Urine Glucose (UA) >=500 mg/dL (Negative) 04/27/18 23:07 Urine Ketones 20 mg/dL (Negative) 04/27/18 23:07 Urine Blood Lg (Negative) 04/27/18 23:07 Urine Nitrite Neg (Negative) 04/27/18 23:07 Urine Bilirubin Neg (Negative) 04/27/18 23:07 Urine Urobilinogen < 2.0 mg/dL (<2.0) 04/27/18 23:07 Ur Leukocyte Esterase Mod (Negative) 04/27/18 23:07 Urine WBC (Auto) 37.0 /HPF (0.0-6.0) H 04/27/18 23:07 Urine RBC (Auto) 14.0 /HPF (0.0-6.0) 04/27/18 23:07 U Epithel Cells (Auto) 9.0 /HPF (0-13.0) 04/27/18 23:07 Urine Bacteria (Auto) 1+ /HPF (Negative) 04/27/18 23:07 Hyaline Casts 1 /LPF 04/27/18 23:07 Urine Mucus Few /HPF 04/27/18 23:07 Urine HCG, Qual Negative (Negative) 04/27/18 23:07
[2018-04-28] MEDS: ROCEPHIN/NS 2 GM/100 ML 2 GM/100 ML BAG IV SCH (22:33)
[2018-04-28] MEDS: ZITHROMAX 500 MG in NACL 0.9% 250ML 250 ML IV SCH (22:54)
[2018-04-29] MEDS: DUONEB *Not for PRN Use IH SCH ×4 (02:56→20:57)
[2018-04-29] MEDS: TESSALON PERLES PO SCH ×3 (05:39→22:20)
[2018-04-29 05:53] LABS: Basophils % (Auto) 0.5 % (0.0-1.8); Eosinophils # (Auto) 0.2 K/mm3 (0.0-0.4); Eosinophils % (Auto) 1.7 % (0.0-4.3); Hemoglobin 11.2 gm/dl (10.1-14.3); Lymphocytes # (Auto) 2.1 K/mm3 (1.2-5.4); Lymphocytes % (Auto) 20.8 % (13.4-35.0); Mean Corpuscular HGB Conc 33 % (30-34); Mean Corpuscular Volume 92 fl (79-97); Monocytes % (Auto) 10.2 % (0.0-7.3); Platelet Count 165 K/mm3 (140-440); Red Blood Count 3.68 M/mm3 (3.65-5.03); Red Cell Distribution Width 13.6 % (13.2-15.2)
[2018-04-29 06:17] LABS: BUN/Creatinine Ratio 6; Blood Urea Nitrogen 3 mg/dL (7-17); Calcium 7.9 mg/dL (8.4-10.2); Hemolysis Index 5
[2018-04-29] MEDS ORDERED: K-DUR PO NR (08:30)
[2018-04-29] MEDS: HumuLIN R SUB-Q SCH ×4 (09:03→23:51)
[2018-04-29] MEDS: SODIUM CHLORIDE FLUSH SYRINGE 10 ML IV SCH ×2 (09:06→22:18)
--- NOTE | 2018-04-29 10:47 | Progress Note ---
Assessment and Plan Assessment and plan: Sepsis. Present on admission. Patient meets criteria given the leukocytosis, tachycardia and diagnosis of pneumonia. Continue IV antibiotics and follow-up blood cultures. Community-acquired left lower lobe pneumonia. Continue IV antibiotics and follow-up serial chest x-ray. History of DiGeorge syndrome. COPD. Compensated. History Interval history: Insomnia Cough Hospitalist Physical - Physical exam Narrative exam: GEN: Not in acute distress,lying in bed,obese HEENT: Normocephalic, atraumatic, Neck: supple, No JVD Lungs: Left base crackles, no wheeze Heart:S1 and S2 regular, no murmurs, rubs or gallop, Abd:soft, non tender, non distended, normal bowel sounds Ext: No edema, no clubbing or cyanosis Neuro: Awake,alert, oriented x 3, No focal signs Psych:Normal mood - Constitutional Vitals: Temp Pulse Resp BP Pulse Ox 98.7 F 100 H 22 160/63 98 04/29/18 08:00 04/29/18 09:16 04/29/18 09:16 04/29/18 07:10 04/29/18 09:08 General appearance: Present: no acute distress Results - Labs CBC & Chem 7: 04/29/18 04:56 04/30/18 05:06 Labs: Laboratory Last Values WBC 9.9 K/mm3 (4.5-11.0) 04/29/18 04:56 RBC 3.68 M/mm3 (3.65-5.03) 04/29/18 04:56 Hgb 11.2 gm/dl (10.1-14.3) 04/29/18 04:56 Hct 34.0 % (30.3-42.9) 04/29/18 04:56 MCV 92 fl (79-97) 04/29/18 04:56 MCH 30 pg (28-32) 04/29/18 04:56 MCHC 33 % (30-34) 04/29/18 04:56 RDW 13.6 % (13.2-15.2) 04/29/18 04:56 Plt Count 165 K/mm3 (140-440) 04/29/18 04:56 Lymph % (Auto) 20.8 % (13.4-35.0) 04/29/18 04:56 [place] % (Auto) 10.2 % (0.0-7.3) H 04/29/18 04:56 Eos % (Auto) 1.7 % (0.0-4.3) 04/29/18 04:56 Baso % (Auto) 0.5 % (0.0-1.8) 04/29/18 04:56 Lymph # 2.1 K/mm3 (1.2-5.4) 04/29/18 04:56 [place] # 1.0 K/mm3 (0.0-0.8) H 04/29/18 04:56 Eos # 0.2 K/mm3 (0.0-0.4) 04/29/18 04:56 Baso # 0.0 K/mm3 (0.0-0.1) 04/29/18 04:56 Seg Neutrophils % 66.8 % (40.0-70.0) 04/29/18 04:56 Seg Neutrophils # 6.6 K/mm3 (1.8-7.7) 04/29/18 04:56 PT 14.0 Sec. (12.2-14.9) 04/27/18 17:02 INR 1.04 (0.87-1.13) 04/27/18 17:02 VBG pH 7.433 (7.320-7.420) H 04/27/18 17:02 Sodium 138 mmol/L (137-145) 04/29/18 04:56 Potassium 3.4 mmol/L (3.6-5.0) L 04/29/18 04:56 Chloride 100.3 mmol/L (98-107) 04/29/18 04:56 Carbon Dioxide 25 mmol/L (22-30) 04/29/18 04:56 Anion Gap 16 mmol/L 04/29/18 04:56 BUN 3 mg/dL (7-17) L 04/29/18 04:56 Creatinine 0.5 mg/dL (0.7-1.2) L 04/29/18 04:56 Estimated GFR > 60 ml/min 04/29/18 04:56 BUN/Creatinine Ratio 6 % 04/29/18 04:56 Glucose 215 mg/dL (65-100) H 04/29/18 04:56 POC Glucose 212 (70-105) H 04/29/18 07:52 Lactic Acid 0.80 mmol/L (0.7-2.0) 04/27/18 19:51 Calcium 7.9 mg/dL (8.4-10.2) L 04/29/18 04:56 Total Bilirubin 0.70 mg/dL (0.1-1.2) 04/27/18 17:02 AST 12 units/L (5-40) 04/27/18 17:02 ALT 15 units/L (7-56) 04/27/18 17:02 Alkaline Phosphatase 147 units/L (35-129) H 04/27/18 17:02 Total Protein 8.5 g/dL (6.3-8.2) H 04/27/18 17:02 Albumin 4.1 g/dL (3.9-5) 04/27/18 17:02 Albumin/Globulin Ratio 0.9 % 04/27/18 17:02 Urine Color Yellow (Yellow) 04/27/18 23:07 Urine Turbidity Slightly-cloudy (Clear) 04/27/18 23:07 Urine pH 5.0 (5.0-7.0) 04/27/18 23:07 Ur Specific [place] 1.028 (1.003-1.030) 04/27/18 23:07 Urine Protein 100 mg/dl mg/dL (Negative) 04/27/18 23:07 Urine Glucose (UA) >=500 mg/dL (Negative) 04/27/18 23:07 Urine Ketones 20 mg/dL (Negative) 04/27/18 23:07 Urine Blood Lg (Negative) 04/27/18 23:07 Urine Nitrite Neg (Negative) 04/27/18 23:07 Urine Bilirubin Neg (Negative) 04/27/18 23:07 Urine Urobilinogen < 2.0 mg/dL (<2.0) 04/27/18 23:07 Ur Leukocyte Esterase Mod (Negative) 04/27/18 23:07 Urine WBC (Auto) 37.0 /HPF (0.0-6.0) H 04/27/18 23:07 Urine RBC (Auto) 14.0 /HPF (0.0-6.0) 04/27/18 23:07 U Epithel Cells (Auto) 9.0 /HPF (0-13.0) 04/27/18 23:07 Urine Bacteria (Auto) 1+ /HPF (Negative) 04/27/18 23:07 Hyaline Casts 1 /LPF 04/27/18 23:07 Urine Mucus Few /HPF 04/27/18 23:07 Urine HCG, Qual Negative (Negative) 04/27/18 23:07
[2018-04-29] MEDS: ROBITUSSIN PO PRN ×3 (12:24→22:17)
[2018-04-29] MEDS: ROCEPHIN/NS 2 GM/100 ML 2 GM/100 ML BAG IV SCH (22:18)
[2018-04-29] MEDS: AMBIEN PO PRN (22:20)
[2018-04-29] MEDS: ZITHROMAX 500 MG in NACL 0.9% 250ML 250 ML IV SCH (23:49)
[2018-04-30] MEDS: ROBITUSSIN PO PRN ×4 (03:27→20:46)
[2018-04-30 05:48] LABS: BUN/Creatinine Ratio 6; Blood Urea Nitrogen 3 mg/dL (7-17); Calcium 8.1 mg/dL (8.4-10.2); Hemolysis Index 83
[2018-04-30] MEDS: DUONEB *Not for PRN Use IH SCH ×3 (08:40→22:04)
[2018-04-30] MEDS: SODIUM CHLORIDE FLUSH SYRINGE 10 ML IV SCH ×2 (10:13→22:36)
[2018-04-30] MEDS: HumuLIN R SUB-Q SCH ×4 (10:24→21:42)
[2018-04-30] MEDS: TYLENOL PO PRN ×2 (12:33→22:38)
[2018-04-30] MEDS ORDERED: APRESOLINE IV PRN (15:52)
[2018-04-30] MEDS ORDERED: NACL 0.9% 1000 ML 1,000 ML IV SCH (17:00)
[2018-04-30] MEDS: TESSALON PERLES PO SCH ×2 (17:17→23:26)
[2018-04-30] MEDS: NORVASC PO SCH (17:18)
--- NOTE | 2018-04-30 18:48 | XRay Report ---
FINAL REPORT EXAM: XR CHEST 1V AP HISTORY: Pneumonia TECHNIQUE: Frontal portable examination of the chest PRIORS: 04/27/2018 FINDINGS: There is increased consolidation size of left lung base infiltrate suspicious for worsening pneumonia . New adjacent density in left CP angle suggestive of new small to moderate left pleural effusion. Right lung remains clear. No pneumothorax or right pleural effusion. Normal cardiac silhouette size w ithout vascular congestion. No acute displaced fracture. IMPRESSION: Findings suspicious for worsened left lung base pneumonia with new adjacent left pleural effusion
--- NOTE | 2018-04-30 18:52 | Progress Note ---
Assessment and Plan Assessment and plan: Sepsis. Present on admission. Patient meets criteria given the leukocytosis, tachycardia and diagnosis of pneumonia. Continue IV antibiotics and follow-up blood cultures. Community-acquired left lower lobe pneumonia. Continue IV antibiotics. Repeat CXR today History of DiGeorge syndrome. COPD. Compensated. May check Influenza Full code status History Interval history: Insomnia Still Coughing sorethroat fever resolving Hospitalist Physical - Physical exam Narrative exam: GEN: Not in acute distress,lying in bed,obese HEENT: Normocephalic, atraumatic, Neck: supple, No JVD Lungs: Left base crackles, no wheeze Heart:S1 and S2 regular, no murmurs, rubs or gallop, Abd:soft, non tender, non distended, normal bowel sounds Ext: No edema, no clubbing or cyanosis Neuro: Awake,alert, oriented x 3, No focal signs Psych:Normal mood - Constitutional Vitals: Temp Pulse Resp BP Pulse Ox 98.2 F 83 18 148/73 98 04/30/18 16:00 04/30/18 17:00 04/30/18 17:00 04/30/18 17:00 04/30/18 17:00 General appearance: Present: no acute distress Results - Labs CBC & Chem 7: 04/29/18 04:56 04/30/18 05:06 Labs: Laboratory Last Values WBC 9.9 K/mm3 (4.5-11.0) 04/29/18 04:56 RBC 3.68 M/mm3 (3.65-5.03) 04/29/18 04:56 Hgb 11.2 gm/dl (10.1-14.3) 04/29/18 04:56 Hct 34.0 % (30.3-42.9) 04/29/18 04:56 MCV 92 fl (79-97) 04/29/18 04:56 MCH 30 pg (28-32) 04/29/18 04:56 MCHC 33 % (30-34) 04/29/18 04:56 RDW 13.6 % (13.2-15.2) 04/29/18 04:56 Plt Count 165 K/mm3 (140-440) 04/29/18 04:56 Lymph % (Auto) 20.8 % (13.4-35.0) 04/29/18 04:56 [place] % (Auto) 10.2 % (0.0-7.3) H 04/29/18 04:56 Eos % (Auto) 1.7 % (0.0-4.3) 04/29/18 04:56 Baso % (Auto) 0.5 % (0.0-1.8) 04/29/18 04:56 Lymph # 2.1 K/mm3 (1.2-5.4) 04/29/18 04:56 [place] # 1.0 K/mm3 (0.0-0.8) H 04/29/18 04:56 Eos # 0.2 K/mm3 (0.0-0.4) 04/29/18 04:56 Baso # 0.0 K/mm3 (0.0-0.1) 04/29/18 04:56 Seg Neutrophils % 66.8 % (40.0-70.0) 04/29/18 04:56 Seg Neutrophils # 6.6 K/mm3 (1.8-7.7) 04/29/18 04:56 PT 14.0 Sec. (12.2-14.9) 04/27/18 17:02 INR 1.04 (0.87-1.13) 04/27/18 17:02 VBG pH 7.433 (7.320-7.420) H 04/27/18 17:02 Sodium 142 mmol/L (137-145) 04/30/18 05:06 Potassium 4.2 mmol/L (3.6-5.0) D 04/30/18 05:06 Chloride 101.5 mmol/L (98-107) 04/30/18 05:06 Carbon Dioxide 26 mmol/L (22-30) 04/30/18 05:06 Anion Gap 19 mmol/L 04/30/18 05:06 BUN 3 mg/dL (7-17) L 04/30/18 05:06 Creatinine 0.5 mg/dL (0.7-1.2) L 04/30/18 05:06 Estimated GFR > 60 ml/min 04/30/18 05:06 BUN/Creatinine Ratio 6 % 04/30/18 05:06 Glucose 213 mg/dL (65-100) H 04/30/18 05:06 POC Glucose 246 (70-105) H 04/30/18 16:27 Hemoglobin A1c 14.6 % (4-6) H 04/30/18 05:06 Lactic Acid 0.80 mmol/L (0.7-2.0) 04/27/18 19:51 Calcium 8.1 mg/dL (8.4-10.2) L 04/30/18 05:06 Total Bilirubin 0.70 mg/dL (0.1-1.2) 04/27/18 17:02 AST 12 units/L (5-40) 04/27/18 17:02 ALT 15 units/L (7-56) 04/27/18 17:02 Alkaline Phosphatase 147 units/L (35-129) H 04/27/18 17:02 Total Protein 8.5 g/dL (6.3-8.2) H 04/27/18 17:02 Albumin 4.1 g/dL (3.9-5) 04/27/18 17:02 Albumin/Globulin Ratio 0.9 % 04/27/18 17:02 Urine Color Yellow (Yellow) 04/27/18 23:07 Urine Turbidity Slightly-cloudy (Clear) 04/27/18 23:07 Urine pH 5.0 (5.0-7.0) 04/27/18 23:07 Ur Specific [place] 1.028 (1.003-1.030) 04/27/18 23:07 Urine Protein 100 mg/dl mg/dL (Negative) 04/27/18 23:07 Urine Glucose (UA) >=500 mg/dL (Negative) 04/27/18 23:07 Urine Ketones 20 mg/dL (Negative) 04/27/18 23:07 Urine Blood Lg (Negative) 04/27/18 23:07 Urine Nitrite Neg (Negative) 04/27/18 23:07 Urine Bilirubin Neg (Negative) 04/27/18 23:07 Urine Urobilinogen < 2.0 mg/dL (<2.0) 04/27/18 23:07 Ur Leukocyte Esterase Mod (Negative) 04/27/18 23:07 Urine WBC (Auto) 37.0 /HPF (0.0-6.0) H 04/27/18 23:07 Urine RBC (Auto) 14.0 /HPF (0.0-6.0) 04/27/18 23:07 U Epithel Cells (Auto) 9.0 /HPF (0-13.0) 04/27/18 23:07 Urine Bacteria (Auto) 1+ /HPF (Negative) 04/27/18 23:07 Hyaline Casts 1 /LPF 04/27/18 23:07 Urine Mucus Few /HPF 04/27/18 23:07 Urine HCG, Qual Negative (Negative) 04/27/18 23:07
[2018-04-30] MEDS: ZITHROMAX PO SCH (21:30)
[2018-04-30] MEDS: TAMIFLU PO SCH (22:37)
[2018-05-01] MEDS: AMBIEN PO PRN (00:08)
[2018-05-01] MEDS: TESSALON PERLES PO SCH ×4 (00:08→22:10)
[2018-05-01] MEDS: ROCEPHIN/NS 2 GM/100 ML 2 GM/100 ML BAG IV SCH ×2 (00:33→22:10)
[2018-05-01] MEDS: ROBITUSSIN PO PRN ×3 (00:34→19:10)
[2018-05-01] MEDS: HumuLIN R SUB-Q SCH ×4 (08:36→22:00)
[2018-05-01] MEDS: DUONEB *Not for PRN Use IH SCH ×3 (08:53→20:49)
[2018-05-01] MEDS: SODIUM CHLORIDE FLUSH SYRINGE 10 ML IV SCH ×2 (11:57→22:00)
[2018-05-01] MEDS: NORVASC PO SCH (11:57)
[2018-05-01] MEDS: CEPACOL X STRENGTH MM PRN (13:33)
[2018-05-01] MEDS: TAMIFLU PO SCH ×2 (13:33→22:10)
[2018-05-01] MEDS: MORPHINE IV PRN ×2 (14:13→22:11)
--- NOTE | 2018-05-01 15:05 | Consultation ---
History of Present Illness Consult date: 05/01/18 Requesting physician: LIZABETH SOLO Reason for consult: pneumonia History of present illness: 37 y/o female with DiGeorge Syndrome admitted with Pneumonia. has been on CAP coverage for several days. No white count no fever. Per patient does not feel better but not necessarily worse. [facility] ordered repeat CXR which showed worsening consolidation so pulmonary was consulted. Patient could not really give any further history. She had several other complaints, but none related to her breathing or lung disease. ordered CT of chest Past History Past Medical History: other (Digeorge syndrome) Past Surgical History: Social history: , lives with family Family history: no significant family history Medications and Allergies Allergies Allergy/AdvReac Type Severity Reaction Status Date / Time No Known Allergies Allergy Verified 06/29/16 00:01 Home Medications Medication Instructions Recorded Confirmed Last Taken Type Budesoni/Formotero 160-4.5(Nf) 2 puff IH BID #1 inha 07/06/16 05/01/18 Unknown Rx [Symbicort 160-4.5 (Nf)] Zolpidem [Ambien] 10 mg PO QHS #30 tablet 07/06/16 05/01/18 Unknown Rx levoFLOXacin [Levaquin TAB] 500 mg PO QDAY #10 tablet 07/06/16 05/01/18 Unknown Rx HYDROcodone/APAP 5-325 [[place] 1 each PO Q6HR PRN #24 tablet 07/13/16 05/01/18 Unknown Rx 5/325] Active Meds: Active Medications Acetaminophen (Tylenol) 650 mg PO Q4H PRN PRN Reason: Pain MILD(1-3)/Fever >100.5/KING Last Admin: 04/30/18 22:38 Dose: 650 mg Documented by: Albuterol (Proventil) 2.5 mg IH Q4HRT PRN PRN Reason: Shortness Of Breath Albuterol/Ipratropium (Duoneb *Not For Prn Use*) 1 ampul IH TIDRT [facility] Last Admin: 05/01/18 14:23 Dose: 1 ampul Documented by: Amlodipine Besylate (Norvasc) 5 mg PO QDAY [facility] Last Admin: 05/01/18 11:57 Dose: 5 mg Documented by: Azithromycin (Zithromax) 500 mg PO QHS [facility] Last Admin: 04/30/18 21:30 Dose: 500 mg Documented by: Benzocaine/Menthol (Cepacol X Strength) 1 each MM Q2HR PRN PRN Reason: Sore Throat Last Admin: 05/01/18 13:33 Dose: 1 each Documented by: Benzonatate (Tessalon Perles) 200 mg PO Q8HR [facility] Last Admin: 05/01/18 13:32 Dose: 200 mg Documented by: Guaifenesin (Robitussin) 200 mg PO Q4H PRN PRN Reason: Cough Last Admin: 05/01/18 08:43 Dose: 200 mg Documented by: Hydralazine HCl (Apresoline) 10 mg IV Q4HR PRN PRN Reason: SBP>160 or DBP>110 Ceftriaxone Sodium (Rocephin/Ns 2 Gm/100 Ml) 2 gm in 100 mls @ 200 mls/hr IV Q24H [facility]; Protocol Last Admin: 05/01/18 00:33 Dose: 200 mls/hr Documented by: Insulin Human Isoph/Insulin Regular (Humulin 70/30) 6 unit SUB-Q BIDDIAB [facility] Insulin Human Regular (Humulin R) 0 units SUB-Q ACHS [facility]; Protocol Last Admin: 05/01/18 13:35 Dose: 2 units Documented by: Metoclopramide HCl (Reglan) 10 mg IV Q6H PRN PRN Reason: Nausea And Vomiting Morphine Sulfate (Morphine) 2 mg IV Q4H PRN PRN Reason: Pain, Moderate (4-6) Last Admin: 05/01/18 14:13 Dose: 2 mg Documented by: Ondansetron HCl (Zofran) 4 mg IV Q8H PRN PRN Reason: Nausea And Vomiting Last Admin: 04/28/18 05:26 Dose: 4 mg Documented by: Oseltamivir Phosphate (Tamiflu) 75 mg PO BID [facility] Stop: 05/05/18 10:01 Last Admin: 05/01/18 13:33 Dose: 75 mg Documented by: Sodium Chloride (Sodium Chloride Flush Syringe 10 Ml) 10 ml IV BID [facility] Last Admin: 05/01/18 11:57 Dose: 10 ml Documented by: Sodium Chloride (Sodium Chloride Flush Syringe 10 Ml) 10 ml IV PRN PRN PRN Reason: LINE FLUSH Zolpidem Tartrate (Ambien) 5 mg PO QHS PRN PRN Reason: Sleep Last Admin: 05/01/18 00:08 Dose: 5 mg Documented by: Review of Systems All systems: negative Physical Examination Vital signs: Vital Signs Temp Pulse Resp BP Pulse Ox 101.6 F H 135 H 26 H 109/73 91 04/27/18 16:55 04/27/18 16:55 04/27/18 16:55 04/27/18 16:55 04/27/18 16:55 General appearance: no acute distress, alert Eyes: non-icteric ENT: oropharynx moist Neck: supple Ascultation: Left: rhonchi (base), Bilateral: diminished breath sounds Percussion: Bilateral: not dull Tactile fremitus: Bilateral: normal Cardiovascular: regular rate and rhythm Gastrointestinal: normoactive bowel sounds, soft Results - Laboratory Findings CBC and BMP: 05/02/18 05:15 05/02/18 05:15 PT/INR, D-dimer PT 14.0 Sec. (12.2-14.9) 04/27/18 17:02 INR 1.04 (0.87-1.13) 04/27/18 17:02 Abnormal lab findings: Abnormal Labs 04/27/18 04/27/18 04/27/18 17:02 17:02 17:02 WBC 19.0 H [place] % (Auto) 8.2 H [place] # 1.6 H Seg Neutrophils % 77.4 H Seg Neutrophils # 14.7 H VBG pH 7.433 H Sodium 134 L Potassium 3.3 L Chloride 95.4 L Carbon Dioxide BUN 4 L Creatinine 0.6 L Glucose 314 H POC Glucose Hemoglobin A1c Calcium Alkaline Phosphatase 147 H Total Protein 8.5 H Urine WBC (Auto) 04/27/18 04/27/18 04/28/18 23:07 23:33 04:34 WBC 12.7 H [place] % (Auto) 8.3 H [place] # 1.1 H Seg Neutrophils % 76.1 H Seg Neutrophils # 9.7 H VBG pH Sodium Potassium Chloride Carbon Dioxide BUN Creatinine Glucose POC Glucose 230 H Hemoglobin A1c Calcium Alkaline Phosphatase Total Protein Urine WBC (Auto) 37.0 H 04/28/18 04/28/18 04/28/18 04:34 07:43 11:42 WBC [place] % (Auto) [place] # Seg Neutrophils % Seg Neutrophils # VBG pH Sodium Potassium 3.0 L Chloride Carbon Dioxide 21 L BUN 5 L Creatinine 0.5 L Glucose 172 H POC Glucose 192 H 274 H Hemoglobin A1c Calcium 7.5 L Alkaline Phosphatase Total Protein Urine WBC (Auto) 04/28/18 04/28/18 04/29/18 17:09 21:09 04:56 WBC [place] % (Auto) 10.2 H [place] # 1.0 H Seg Neutrophils % Seg Neutrophils # VBG pH Sodium Potassium Chloride Carbon Dioxide BUN Creatinine Glucose POC Glucose 310 H 218 H Hemoglobin A1c Calcium Alkaline Phosphatase Total Protein Urine WBC (Auto) 04/29/18 04/29/18 04/29/18 04:56 07:52 11:38 WBC [place] % (Auto) [place] # Seg Neutrophils % Seg Neutrophils # VBG pH Sodium Potassium 3.4 L Chloride Carbon Dioxide BUN 3 L Creatinine 0.5 L Glucose 215 H POC Glucose 212 H 297 H Hemoglobin A1c Calcium 7.9 L Alkaline Phosphatase Total Protein Urine WBC (Auto) 04/29/18 04/29/18 04/30/18 16:09 21:08 05:06 WBC [place] % (Auto) [place] # Seg Neutrophils % Seg Neutrophils # VBG pH Sodium Potassium Chloride Carbon Dioxide BUN 3 L Creatinine 0.5 L Glucose 213 H POC Glucose 198 H 205 H Hemoglobin A1c Calcium 8.1 L Alkaline Phosphatase Total Protein Urine WBC (Auto) 04/30/18 04/30/18 04/30/18 05:06 08:46 11:54 WBC [place] % (Auto) [place] # Seg Neutrophils % Seg Neutrophils # VBG pH Sodium Potassium Chloride Carbon Dioxide BUN Creatinine Glucose POC Glucose 200 H 215 H Hemoglobin A1c 14.6 H Calcium Alkaline Phosphatase Total Protein Urine WBC (Auto) 04/30/18 04/30/18 05/01/18 16:27 21:43 08:10 WBC [place] % (Auto) [place] # Seg Neutrophils % Seg Neutrophils # VBG pH Sodium Potassium Chloride Carbon Dioxide BUN Creatinine Glucose POC Glucose 246 H 200 H 180 H Hemoglobin A1c Calcium Alkaline Phosphatase Total Protein Urine WBC (Auto) 05/01/18 12:50 WBC [place] % (Auto) [place] # Seg Neutrophils % Seg Neutrophils # VBG pH Sodium Potassium Chloride Carbon Dioxide BUN Creatinine Glucose POC Glucose 184 H Hemoglobin A1c Calcium Alkaline Phosphatase Total Protein Urine WBC (Auto) - Diagnostic Findings Chest x-ray: image reviewed (as stated in HPI) Assessment and Plan 37 y/o female with left lower lobe pneumonia and persistent symptoms. 1. CT chest without contrast 2. See that patient is currently being treated for flu but could not find positive swab. If so, may need to consider post influenza pneumonia which most commonly is MRSA 3. Continue current therapy. 4. Suggest checking labs in the am including CBC with diff. May need to consi suhail checking HIV as well.
--- NOTE | 2018-05-01 16:04 | Progress Note ---
Assessment and Plan Assessment and plan: Sepsis. Present on admission. Patient meets criteria given the leukocytosis, tachycardia and diagnosis of pneumonia. Continue IV antibiotics Rocephin and Zithromax. Blood cultures no growth Community-acquired left lower lobe pneumonia. Continue IV antibiotics. Repeat CXR showed worsening pneumonia Consult Pulmonology History of DiGeorge syndrome. COPD. Compensated. Check Influenza Full code status History Interval history: Insomnia Still Coughing Still c/o sorethroat fever resolving Hospitalist Physical - Physical exam Narrative exam: GEN: Not in acute distress,lying in bed,obese HEENT: Normocephalic, atraumatic, Neck: supple, No JVD Lungs: Left base crackles, no wheeze Heart:S1 and S2 regular, no murmurs, rubs or gallop, Abd:soft, non tender, non distended, normal bowel sounds Ext: No edema, no clubbing or cyanosis Neuro: Awake,alert, oriented x 3, No focal signs Psych:Normal mood - Constitutional Vitals: Temp Pulse Resp BP Pulse Ox 98.5 F 96 H 16 112/63 98 05/01/18 05:13 05/01/18 14:24 05/01/18 14:24 05/01/18 05:13 05/01/18 08:58 General appearance: Present: no acute distress Results - Labs CBC & Chem 7: 05/02/18 05:15 05/02/18 05:15 Labs: Laboratory Last Values WBC 9.9 K/mm3 (4.5-11.0) 04/29/18 04:56 RBC 3.68 M/mm3 (3.65-5.03) 04/29/18 04:56 Hgb 11.2 gm/dl (10.1-14.3) 04/29/18 04:56 Hct 34.0 % (30.3-42.9) 04/29/18 04:56 MCV 92 fl (79-97) 04/29/18 04:56 MCH 30 pg (28-32) 04/29/18 04:56 MCHC 33 % (30-34) 04/29/18 04:56 RDW 13.6 % (13.2-15.2) 04/29/18 04:56 Plt Count 165 K/mm3 (140-440) 04/29/18 04:56 Lymph % (Auto) 20.8 % (13.4-35.0) 04/29/18 04:56 [place] % (Auto) 10.2 % (0.0-7.3) H 04/29/18 04:56 Eos % (Auto) 1.7 % (0.0-4.3) 04/29/18 04:56 Baso % (Auto) 0.5 % (0.0-1.8) 04/29/18 04:56 Lymph # 2.1 K/mm3 (1.2-5.4) 04/29/18 04:56 [place] # 1.0 K/mm3 (0.0-0.8) H 04/29/18 04:56 Eos # 0.2 K/mm3 (0.0-0.4) 04/29/18 04:56 Baso # 0.0 K/mm3 (0.0-0.1) 04/29/18 04:56 Seg Neutrophils % 66.8 % (40.0-70.0) 04/29/18 04:56 Seg Neutrophils # 6.6 K/mm3 (1.8-7.7) 04/29/18 04:56 PT 14.0 Sec. (12.2-14.9) 04/27/18 17:02 INR 1.04 (0.87-1.13) 04/27/18 17:02 VBG pH 7.433 (7.320-7.420) H 04/27/18 17:02 Sodium 142 mmol/L (137-145) 04/30/18 05:06 Potassium 4.2 mmol/L (3.6-5.0) D 04/30/18 05:06 Chloride 101.5 mmol/L (98-107) 04/30/18 05:06 Carbon Dioxide 26 mmol/L (22-30) 04/30/18 05:06 Anion Gap 19 mmol/L 04/30/18 05:06 BUN 3 mg/dL (7-17) L 04/30/18 05:06 Creatinine 0.5 mg/dL (0.7-1.2) L 04/30/18 05:06 Estimated GFR > 60 ml/min 04/30/18 05:06 BUN/Creatinine Ratio 6 % 04/30/18 05:06 Glucose 213 mg/dL (65-100) H 04/30/18 05:06 POC Glucose 184 (70-105) H 05/01/18 12:50 Hemoglobin A1c 14.6 % (4-6) H 04/30/18 05:06 Lactic Acid 0.80 mmol/L (0.7-2.0) 04/27/18 19:51 Calcium 8.1 mg/dL (8.4-10.2) L 04/30/18 05:06 Total Bilirubin 0.70 mg/dL (0.1-1.2) 04/27/18 17:02 AST 12 units/L (5-40) 04/27/18 17:02 ALT 15 units/L (7-56) 04/27/18 17:02 Alkaline Phosphatase 147 units/L (35-129) H 04/27/18 17:02 Total Protein 8.5 g/dL (6.3-8.2) H 04/27/18 17:02 Albumin 4.1 g/dL (3.9-5) 04/27/18 17:02 Albumin/Globulin Ratio 0.9 % 04/27/18 17:02 Urine Color Yellow (Yellow) 04/27/18 23:07 Urine Turbidity Slightly-cloudy (Clear) 04/27/18 23:07 Urine pH 5.0 (5.0-7.0) 04/27/18 23:07 Ur Specific [place] 1.028 (1.003-1.030) 04/27/18 23:07 Urine Protein 100 mg/dl mg/dL (Negative) 04/27/18 23:07 Urine Glucose (UA) >=500 mg/dL (Negative) 04/27/18 23:07 Urine Ketones 20 mg/dL (Negative) 04/27/18 23:07 Urine Blood Lg (Negative) 04/27/18 23:07 Urine Nitrite Neg (Negative) 04/27/18 23:07 Urine Bilirubin Neg (Negative) 04/27/18 23:07 Urine Urobilinogen < 2.0 mg/dL (<2.0) 04/27/18 23:07 Ur Leukocyte Esterase Mod (Negative) 04/27/18 23:07 Urine WBC (Auto) 37.0 /HPF (0.0-6.0) H 04/27/18 23:07 Urine RBC (Auto) 14.0 /HPF (0.0-6.0) 04/27/18 23:07 U Epithel Cells (Auto) 9.0 /HPF (0-13.0) 04/27/18 23:07 Urine Bacteria (Auto) 1+ /HPF (Negative) 04/27/18 23:07 Hyaline Casts 1 /LPF 04/27/18 23:07 Urine Mucus Few /HPF 04/27/18 23:07 Urine HCG, Qual Negative (Negative) 04/27/18 23:07
--- NOTE | 2018-05-01 21:58 | Cat Scan Report ---
FINAL REPORT PROCEDURE: CT CHEST WO CON TECHNIQUE: Computerized axial tomography of the chest was performed without contrast material. This study is performed without intravenous contrast and the sensitivity for pathology, including neoplasm s, adenopathy, abscess, pulmonary embolism and aortic dissection, is reduced. HISTORY: Worsening Left lower lobe airspace disease COMPARISON: No prior studies are available for comparison. TECHNICAL QUALITY: Satisfactory. FINDINGS: Irregular areas of consolidation are noted involving left upper, left lower and right upper lobes. Ad ditional scattered infiltrates are identified in bilateral lungs. An irregular calcific nodule measur ing 9 millimeters is noted in the right upper lobe associated with adjacent scarring consistent with old healed granulomatous disease. Pleural spaces are clear. Hilar structures cannot be well evaluated due to lack of contrast. Aorta is of normal caliber. Thyroid is unremarkable. Cardiac size is within normal limits. Mild degree pretracheal and subcarinal lymphadenopathy is noted. Vertebral height is normal. Multiple tortuous venous structures are noted along the lesser curvature and superior pancrea tic margin as seen on the prior study mild degree lymphadenopathy is noted involving the portacaval a nd shirlene hepatis regions.. IMPRESSION: Irregular areas of consolidation involving predominantly left lung are consistent with pneumonia. Mild degree lymphadenopathy involving mediastinal, portacaval and shirlene hepatis regions. Multiple tortuous venous structures along the lesser curvature and superior pancreatic margin are rosibel picious for varices secondary to portal hypertension. .
[2018-05-01] MEDS: ZITHROMAX PO SCH (22:10)
[2018-05-02] MEDS: ROBITUSSIN PO PRN (02:49)
[2018-05-02] MEDS: CEPACOL X STRENGTH MM PRN (02:51)
[2018-05-02] MEDS: TESSALON PERLES PO SCH ×3 (06:01→22:33)
[2018-05-02 06:14] LABS: Hemoglobin 12.3 gm/dl (10.1-14.3); Mean Corpuscular HGB Conc 33 % (30-34); Mean Corpuscular Volume 91 fl (79-97); Platelet Count 185 K/mm3 (140-440); Red Blood Count 4.07 M/mm3 (3.65-5.03); Red Cell Distribution Width 13.6 % (13.2-15.2)
[2018-05-02 06:43] LABS: BUN/Creatinine Ratio 12; Blood Urea Nitrogen 6 mg/dL (7-17); Calcium 8.3 mg/dL (8.4-10.2); Hemolysis Index 5
[2018-05-02] MEDS: DUONEB *Not for PRN Use IH SCH ×3 (07:49→19:49)
[2018-05-02] MEDS: HumuLIN R SUB-Q SCH ×4 (09:00→22:32)
[2018-05-02] MEDS: NORVASC PO SCH (10:14)
[2018-05-02] MEDS: TAMIFLU PO SCH ×2 (10:16→22:33)
[2018-05-02] MEDS: SODIUM CHLORIDE FLUSH SYRINGE 10 ML IV SCH ×2 (10:17→22:34)
[2018-05-02] MEDS: MORPHINE IV PRN ×2 (10:27→18:03)
[2018-05-02] MEDS: BENADRYL IV PRN ×2 (11:51→18:03)
--- NOTE | 2018-05-02 14:58 | Consultation ---
History of Present Illness - Reason for Consult Consult date: 05/02/18 Worsening pneumonia Requesting physician: LIZABETH SOLO - History of Present Illness The patient is a 37-year-old female with DiGeorge syndrome presented to the emergency room on 04/27/2018 with complaints of cough and shortness of breath for about 2-3 days prior to admission. Apparently this started off as nausea and vomiting. Here, the patient was noted to have a fever of 101.6 Fahrenheit. She was also noted to have significant leukocytosis and concern for sepsis. Chest x- ray was concerning for a possible left-sided pneumonia and hence she was admitted to the hospital and started on empiric Tamiflu along with azithromycin, Rocephin. She still has a slight cough and exertional shortness of breath, also complains of a stuffy nose, sore throat, headache and fullness in her ears. Denies any nausea or vomiting at this time and denies any significant diarrhea. Reports 2-3 soft bowel movements per day which is normal for her. Denies any urinary burning. She has remained afebrile for the last 3 days. She admits to smoking one pack of cigarettes per day. Denies any recreational drug use. Drinks alcohol socially on occasions. Review of Systems: General: no fevers,chills or rigors HEENT: no new visual disturbance Respiratory: + cough, shortness of breath. Cardiovascular: No chest pain, syncope Gastrointestinal: No nausea, vomiting or diarrhea Genitourinary: No dysuria or hematuria Musculoskeletal: No new or worsening neck pain or back pain Neurologic: + for headaches, no seizures Hematologic: No easy bruising or bleeding Endocrine: No night sweats or acute weight loss Skin: negative for rash, jaundice Psychiatric: No suicidal or homicidal ideation Past History Past Medical History: other (Digeorge syndrome) Past Surgical History: Social history: , lives with family Family history: no significant family history Medications and Allergies Allergies Allergy/AdvReac Type Severity Reaction Status Date / Time No Known Allergies Allergy Verified 06/29/16 00:01 Home Medications Medication Instructions Recorded Confirmed Last Taken Type Budesoni/Formotero 160-4.5(Nf) 2 puff IH BID #1 inha 07/06/16 05/01/18 Unknown Rx [Symbicort 160-4.5 (Nf)] Zolpidem [Ambien] 10 mg PO QHS #30 tablet 07/06/16 05/01/18 Unknown Rx levoFLOXacin [Levaquin TAB] 500 mg PO QDAY #10 tablet 07/06/16 05/01/18 Unknown Rx HYDROcodone/APAP 5-325 [[place] 1 each PO Q6HR PRN #24 tablet 07/13/16 05/01/18 Unknown Rx 5/325] Active Meds: Active Medications Acetaminophen (Tylenol) 650 mg PO Q4H PRN PRN Reason: Pain MILD(1-3)/Fever >100.5/KING Last Admin: 04/30/18 22:38 Dose: 650 mg Documented by: Albuterol (Proventil) 2.5 mg IH Q4HRT PRN PRN Reason: Shortness Of Breath Albuterol/Ipratropium (Duoneb *Not For Prn Use*) 1 ampul IH TIDRT [facility] Last Admin: 05/02/18 14:27 Dose: 1 ampul Documented by: Amlodipine Besylate (Norvasc) 5 mg PO QDAY [facility] Last Admin: 05/02/18 10:14 Dose: Not Given Documented by: Azithromycin (Zithromax) 500 mg PO QHS [facility] Last Admin: 05/01/18 22:10 Dose: 500 mg Documented by: Benzocaine/Menthol (Cepacol X Strength) 1 each MM Q2HR PRN PRN Reason: Sore Throat Last Admin: 05/02/18 02:51 Dose: 1 each Documented by: Benzonatate (Tessalon Perles) 200 mg PO Q8HR [facility] Last Admin: 05/02/18 13:51 Dose: 200 mg Documented by: Diphenhydramine HCl (Benadryl) 25 mg IV Q6H PRN PRN Reason: Itching Last Admin: 05/02/18 11:51 Dose: 25 mg Documented by: Guaifenesin (Robitussin) 200 mg PO Q4H PRN PRN Reason: Cough Last Admin: 05/02/18 02:49 Dose: 200 mg Documented by: Hydralazine HCl (Apresoline) 10 mg IV Q4HR PRN PRN Reason: SBP>160 or DBP>110 Ceftriaxone Sodium (Rocephin/Ns 2 Gm/100 Ml) 2 gm in 100 mls @ 200 mls/hr IV Q24H [facility]; Protocol Last Admin: 05/01/18 22:10 Dose: 200 mls/hr Documented by: Insulin Human Isoph/Insulin Regular (Humulin 70/30) 6 unit SUB-Q BIDDIAB [facility] Last Admin: 05/02/18 10:16 Dose: 6 unit Documented by: Insulin Human Regular (Humulin R) 0 units SUB-Q ACHS [facility]; Protocol Last Admin: 05/02/18 13:51 Dose: 2 units Documented by: Metoclopramide HCl (Reglan) 10 mg IV Q6H PRN PRN Reason: Nausea And Vomiting Morphine Sulfate (Morphine) 2 mg IV Q4H PRN PRN Reason: Pain, Moderate (4-6) Last Admin: 05/02/18 10:27 Dose: 2 mg Documented by: Ondansetron HCl (Zofran) 4 mg IV Q8H PRN PRN Reason: Nausea And Vomiting Last Admin: 04/28/18 05:26 Dose: 4 mg Documented by: Oseltamivir Phosphate (Tamiflu) 75 mg PO BID [facility] Stop: 05/05/18 10:01 Last Admin: 05/02/18 10:16 Dose: 75 mg Documented by: Sodium Chloride (Sodium Chloride Flush Syringe 10 Ml) 10 ml IV BID [facility] Last Admin: 05/02/18 10:17 Dose: 10 ml Documented by: Sodium Chloride (Sodium Chloride Flush Syringe 10 Ml) 10 ml IV PRN PRN PRN Reason: LINE FLUSH Zolpidem Tartrate (Ambien) 5 mg PO QHS PRN PRN Reason: Sleep Last Admin: 05/01/18 00:08 Dose: 5 mg Documented by: Physical Examination - Physical Exam Narrative exam: Physical Exam: Constitutional: Alert, cooperative. No acute distress Head, Ears, Nose: Normocephalic, atraumatic. External ears, nose normal Eyes: Conjunctivae/corneas clear. No icterus. No ptosis. Neck: Supple, no meningeal signs Oral: edentulous, no thrush Cardiovascular: S1, S2 normal. Respiratory: bilateral basal crackles + GI: Soft, non-tender; bowel sounds normal. No peritoneal signs Musculoskeletal: No pedal edema, no cyanosis. Skin: No rash or abscess Hem/Lymphatic: No palpable cervical or supraclavicular nodes. No lymphangitis Psych: Mood ok. Affect normal Neurological: Awake, alert, oriented. No gross abnormality - Constitutional Vitals: Vital Signs Temp Pulse Resp BP Pulse Ox 98.7 F 100 H 18 112/79 93 05/02/18 13:27 05/02/18 13:27 05/02/18 13:27 05/02/18 13:27 05/02/18 13:27 Temperature -Last 24 Hours Temperature 98.7 F Temperature 98.3 F Temperature 97.9 F Temperature 98.6 F Results - Labs CBC & Chem 7: 05/02/18 05:15 05/02/18 05:15 Labs: Abnormal lab results 05/01/18 05/01/18 05/02/18 Range/Units 19:05 21:49 05:15 Chloride 97.1 L (98-107) mmol/L BUN 6 L (7-17) mg/dL Creatinine 0.5 L (0.7-1.2) mg/dL Glucose 162 H (65-100) mg/dL POC Glucose 250 H 110 H (70-105) Calcium 8.3 L (8.4-10.2) mg/dL 05/02/18 Range/Units 08:00 Chloride (98-107) mmol/L BUN (7-17) mg/dL Creatinine (0.7-1.2) mg/dL Glucose (65-100) mg/dL POC Glucose 173 H (70-105) Calcium (8.4-10.2) mg/dL - Imaging and Cardiology Chest x-ray: report reviewed, image reviewed (Chest x-ray revealed a left lower lobe pneumonia.) CT scan - chest: report reviewed, image reviewed (CT scan revealed a left-sided pneumonia.) Assessment and Plan Cultures: 04/27/2018 blood culture: No growth 04/27/2018 urine culture: No growth A/P: 37-year-old female with DiGeorge syndrome, admitted with: #1 Sepsis present on admission, likely secondary to left-sided pneumonia: Clinically, she looks quite stable. Her leukocytosis and fevers have also resolved. CT scan reviewed, left sided pneumonia does not appear to be worsening. Continue with current therapy. Since she is afebrile and off oxygen, okay to discharge tomorrow on oral antibiotics. Rapid flu was negative, influenza PCR ordered, if negative Tamiflu can be discontinued. #2 Tobacco abuse, COPD: Recommended smoking cessation Recs: Fevers and leukocytosis have resolved. Continue with current therapy. Complete 5 days of azithromycin Flu PCR ordered, if negative can discontinue Tamiflu Continue ceftriaxone, okay to discharge patient tomorrow on by mouth Ceftin 500 mg twice a day for 2 more days and complete 7 day therapy Smoking cessation recommended Discussed with Dr. Solo. Evert Gaston MD [facility] C: [phone] O: [phone] F: [phone]
--- NOTE | 2018-05-02 15:51 | Progress Note ---
Assessment and Plan 37 y/o female with left lower lobe pneumonia and persistent symptoms. 1. Nonspecific findings on CT 2. Encourage ambulation and OOB to chair 3. Follow up any new ID recs. Subjective Date of service: 05/02/18 Interval history: No acute events. CT shows consolidation on the left lower lobe and other areas of confluence as well. No dialated airways. Remains on room air and stable. IMS at bedside and they have consulted ID Objective Vital Signs - 12hr 05/02/18 05/02/18 05/02/18 06:20 07:49 08:00 Temperature 98.3 F Pulse Rate 88 Pulse Rate [ 85 86 Throughout] Respiratory 18 Rate Respiratory 18 18 Rate [ Throughout] Blood Pressure 108/58 O2 Sat by Pulse 95 96 Oximetry 05/02/18 05/02/18 10:14 13:27 Temperature 98.7 F Pulse Rate 100 H Pulse Rate [ Throughout] Respiratory 18 Rate Respiratory Rate [ Throughout] Blood Pressure 108/58 112/79 O2 Sat by Pulse 93 Oximetry Constitutional: no acute distress, alert Eyes: non-icteric ENT: oropharynx moist Neck: supple Ascultation: Left: rhonchi (base), Bilateral: diminished breath sounds Percussion: Bilateral: not dull Tactile fremitus: Bilateral: normal Cardiovascular: regular rate and rhythm Gastrointestinal: normoactive bowel sounds, soft CBC and BMP: 05/02/18 05:15 05/02/18 05:15 ABG, PT/INR, D-dimer: PT/INR, D-dimer PT 14.0 Sec. (12.2-14.9) 04/27/18 17:02 INR 1.04 (0.87-1.13) 04/27/18 17:02 Abnormal lab findings: Abnormal Labs 04/27/18 04/27/18 04/27/18 17:02 17:02 17:02 WBC 19.0 H [place] % (Auto) 8.2 H [place] # 1.6 H Seg Neutrophils % 77.4 H Seg Neutrophils # 14.7 H VBG pH 7.433 H Sodium 134 L Potassium 3.3 L Chloride 95.4 L Carbon Dioxide BUN 4 L Creatinine 0.6 L Glucose 314 H POC Glucose Hemoglobin A1c Calcium Alkaline Phosphatase 147 H Total Protein 8.5 H Urine WBC (Auto) 04/27/18 04/27/18 04/28/18 23:07 23:33 04:34 WBC 12.7 H [place] % (Auto) 8.3 H [place] # 1.1 H Seg Neutrophils % 76.1 H Seg Neutrophils # 9.7 H VBG pH Sodium Potassium Chloride Carbon Dioxide BUN Creatinine Glucose POC Glucose 230 H Hemoglobin A1c Calcium Alkaline Phosphatase Total Protein Urine WBC (Auto) 37.0 H 04/28/18 04/28/18 04/28/18 04:34 07:43 11:42 WBC [place] % (Auto) [place] # Seg Neutrophils % Seg Neutrophils # VBG pH Sodium Potassium 3.0 L Chloride Carbon Dioxide 21 L BUN 5 L Creatinine 0.5 L Glucose 172 H POC Glucose 192 H 274 H Hemoglobin A1c Calcium 7.5 L Alkaline Phosphatase Total Protein Urine WBC (Auto) 04/28/18 04/28/18 04/29/18 17:09 21:09 04:56 WBC [place] % (Auto) 10.2 H [place] # 1.0 H Seg Neutrophils % Seg Neutrophils # VBG pH Sodium Potassium Chloride Carbon Dioxide BUN Creatinine Glucose POC Glucose 310 H 218 H Hemoglobin A1c Calcium Alkaline Phosphatase Total Protein Urine WBC (Auto) 04/29/18 04/29/18 04/29/18 04:56 07:52 11:38 WBC [place] % (Auto) [place] # Seg Neutrophils % Seg Neutrophils # VBG pH Sodium Potassium 3.4 L Chloride Carbon Dioxide BUN 3 L Creatinine 0.5 L Glucose 215 H POC Glucose 212 H 297 H Hemoglobin A1c Calcium 7.9 L Alkaline Phosphatase Total Protein Urine WBC (Auto) 04/29/18 04/29/18 04/30/18 16:09 21:08 05:06 WBC [place] % (Auto) [place] # Seg Neutrophils % Seg Neutrophils # VBG pH Sodium Potassium Chloride Carbon Dioxide BUN 3 L Creatinine 0.5 L Glucose 213 H POC Glucose 198 H 205 H Hemoglobin A1c Calcium 8.1 L Alkaline Phosphatase Total Protein Urine WBC (Auto) 04/30/18 04/30/18 04/30/18 05:06 08:46 11:54 WBC [place] % (Auto) [place] # Seg Neutrophils % Seg Neutrophils # VBG pH Sodium Potassium Chloride Carbon Dioxide BUN Creatinine Glucose POC Glucose 200 H 215 H Hemoglobin A1c 14.6 H Calcium Alkaline Phosphatase Total Protein Urine WBC (Auto) 04/30/18 04/30/18 05/01/18 16:27 21:43 08:10 WBC [place] % (Auto) [place] # Seg Neutrophils % Seg Neutrophils # VBG pH Sodium Potassium Chloride Carbon Dioxide BUN Creatinine Glucose POC Glucose 246 H 200 H 180 H Hemoglobin A1c Calcium Alkaline Phosphatase Total Protein Urine WBC (Auto) 05/01/18 05/01/18 05/01/18 12:50 19:05 21:49 WBC [place] % (Auto) [place] # Seg Neutrophils % Seg Neutrophils # VBG pH Sodium Potassium Chloride Carbon Dioxide BUN Creatinine Glucose POC Glucose 184 H 250 H 110 H Hemoglobin A1c Calcium Alkaline Phosphatase Total Protein Urine WBC (Auto) 05/02/18 05/02/18 05:15 08:00 WBC [place] % (Auto) [place] # Seg Neutrophils % Seg Neutrophils # VBG pH Sodium Potassium Chloride 97.1 L Carbon Dioxide BUN 6 L Creatinine 0.5 L Glucose 162 H POC Glucose 173 H Hemoglobin A1c Calcium 8.3 L Alkaline Phosphatase Total Protein Urine WBC (Auto)
[2018-05-02] MEDS: ROCEPHIN/NS 2 GM/100 ML 2 GM/100 ML BAG IV SCH (22:33)
[2018-05-02] MEDS: ZITHROMAX PO SCH (22:33)
[2018-05-03] MEDS: BENADRYL IV PRN ×2 (00:49→11:00)
[2018-05-03] MEDS: TESSALON PERLES PO SCH ×2 (06:46→13:09)
[2018-05-03] MEDS: ROBITUSSIN PO PRN (08:24)
[2018-05-03] MEDS: MORPHINE IV PRN ×2 (08:25→12:45)
[2018-05-03] MEDS: HumuLIN R SUB-Q SCH ×2 (08:31→12:35)
[2018-05-03] MEDS: DUONEB *Not for PRN Use IH SCH ×2 (08:41→13:29)
--- NOTE | 2018-05-03 08:47 | Progress Note ---
Assessment and Plan Assessment and plan: Sepsis. Present on admission. Patient meets criteria given the leukocytosis, tachycardia and diagnosis of pneumonia. Continue IV antibiotics Rocephin and Zithromax. Blood cultures no growth consult ID Physician Community-acquired left lower lobe pneumonia. Continue IV antibiotics. Repeat CXR showed worsening pneumonia Consulted Pulmonology History of DiGeorge syndrome. COPD. Compensated. Check Influenza Full code status Hopefully dc home tomorrow History Interval history: Insomnia Still Coughing Still c/o sorethroat fever resolving Hospitalist Physical - Physical exam Narrative exam: GEN: Not in acute distress,lying in bed,obese HEENT: Normocephalic, atraumatic, Neck: supple, No JVD Lungs: Left base crackles, no wheeze Heart:S1 and S2 regular, no murmurs, rubs or gallop, Abd:soft, non tender, non distended, normal bowel sounds Ext: No edema, no clubbing or cyanosis Neuro: Awake,alert, oriented x 3, No focal signs Psych:Normal mood - Constitutional Vitals: Temp Pulse Resp BP Pulse Ox 98.6 F 93 H 18 106/77 95 05/03/18 05:58 05/03/18 08:17 05/03/18 05:58 05/03/18 08:17 05/03/18 05:58 General appearance: Present: no acute distress Results - Labs CBC & Chem 7: 05/02/18 05:15 05/02/18 05:15 Labs: Laboratory Last Values WBC 8.2 K/mm3 (4.5-11.0) 05/02/18 05:15 RBC 4.07 M/mm3 (3.65-5.03) 05/02/18 05:15 Hgb 12.3 gm/dl (10.1-14.3) 05/02/18 05:15 Hct 37.0 % (30.3-42.9) 05/02/18 05:15 MCV 91 fl (79-97) 05/02/18 05:15 MCH 30 pg (28-32) 05/02/18 05:15 MCHC 33 % (30-34) 05/02/18 05:15 RDW 13.6 % (13.2-15.2) 05/02/18 05:15 Plt Count 185 K/mm3 (140-440) 05/02/18 05:15 Lymph % (Auto) 20.8 % (13.4-35.0) 04/29/18 04:56 [place] % (Auto) 10.2 % (0.0-7.3) H 04/29/18 04:56 Eos % (Auto) 1.7 % (0.0-4.3) 04/29/18 04:56 Baso % (Auto) 0.5 % (0.0-1.8) 04/29/18 04:56 Lymph # 2.1 K/mm3 (1.2-5.4) 04/29/18 04:56 [place] # 1.0 K/mm3 (0.0-0.8) H 04/29/18 04:56 Eos # 0.2 K/mm3 (0.0-0.4) 04/29/18 04:56 Baso # 0.0 K/mm3 (0.0-0.1) 04/29/18 04:56 Seg Neutrophils % 66.8 % (40.0-70.0) 04/29/18 04:56 Seg Neutrophils # 6.6 K/mm3 (1.8-7.7) 04/29/18 04:56 PT 14.0 Sec. (12.2-14.9) 04/27/18 17:02 INR 1.04 (0.87-1.13) 04/27/18 17:02 VBG pH 7.433 (7.320-7.420) H 04/27/18 17:02 Sodium 139 mmol/L (137-145) 05/02/18 05:15 Potassium 4.1 mmol/L (3.6-5.0) 05/02/18 05:15 Chloride 97.1 mmol/L (98-107) L 05/02/18 05:15 Carbon Dioxide 30 mmol/L (22-30) 05/02/18 05:15 Anion Gap 16 mmol/L 05/02/18 05:15 BUN 6 mg/dL (7-17) L 05/02/18 05:15 Creatinine 0.5 mg/dL (0.7-1.2) L 05/02/18 05:15 Estimated GFR > 60 ml/min 05/02/18 05:15 BUN/Creatinine Ratio 12 % 05/02/18 05:15 Glucose 162 mg/dL (65-100) H 05/02/18 05:15 POC Glucose 176 (70-105) H 05/03/18 07:32 Hemoglobin A1c 14.6 % (4-6) H 04/30/18 05:06 Lactic Acid 0.80 mmol/L (0.7-2.0) 04/27/18 19:51 Calcium 8.3 mg/dL (8.4-10.2) L 05/02/18 05:15 Total Bilirubin 0.70 mg/dL (0.1-1.2) 04/27/18 17:02 AST 12 units/L (5-40) 04/27/18 17:02 ALT 15 units/L (7-56) 04/27/18 17:02 Alkaline Phosphatase 147 units/L (35-129) H 04/27/18 17:02 Total Protein 8.5 g/dL (6.3-8.2) H 04/27/18 17:02 Albumin 4.1 g/dL (3.9-5) 04/27/18 17:02 Albumin/Globulin Ratio 0.9 % 04/27/18 17:02 Urine Color Yellow (Yellow) 04/27/18 23:07 Urine Turbidity Slightly-cloudy (Clear) 04/27/18 23:07 Urine pH 5.0 (5.0-7.0) 04/27/18 23:07 Ur Specific [place] 1.028 (1.003-1.030) 04/27/18 23:07 Urine Protein 100 mg/dl mg/dL (Negative) 04/27/18 23:07 Urine Glucose (UA) >=500 mg/dL (Negative) 04/27/18 23:07 Urine Ketones 20 mg/dL (Negative) 04/27/18 23:07 Urine Blood Lg (Negative) 04/27/18 23:07 Urine Nitrite Neg (Negative) 04/27/18 23:07 Urine Bilirubin Neg (Negative) 04/27/18 23:07 Urine Urobilinogen < 2.0 mg/dL (<2.0) 04/27/18 23:07 Ur Leukocyte Esterase Mod (Negative) 04/27/18 23:07 Urine WBC (Auto) 37.0 /HPF (0.0-6.0) H 04/27/18 23:07 Urine RBC (Auto) 14.0 /HPF (0.0-6.0) 04/27/18 23:07 U Epithel Cells (Auto) 9.0 /HPF (0-13.0) 04/27/18 23:07 Urine Bacteria (Auto) 1+ /HPF (Negative) 04/27/18 23:07 Hyaline Casts 1 /LPF 04/27/18 23:07 Urine Mucus Few /HPF 04/27/18 23:07 Urine HCG, Qual Negative (Negative) 04/27/18 23:07 Influenza A (Rapid) Negative (Negative) 05/01/18 18:50 Influenza A (RT-PCR) Negative (Negative) 05/02/18 Unknown Influenza B (Rapid) Negative (Negative) 05/01/18 18:50 Influenza B (RT-PCR) Negative (Negative) 05/02/18 Unknown Nutrition/Malnutrition Assess - Dietary Evaluation Nutrition/Malnutrition Findings: Nutrition Notes Start: 05/02/18 10:23 Freq: Status: Active Protocol: Document 05/02/18 10:23 LM (Rec: 05/02/18 11:34 LM [id number]) Co-Sign 05/02/18 10:23 LP Nutrition Notes Need for Assessment generated from: LOS Initial or Follow up Brief Note Subjective/Other Information Screen for LOS. 100% intakes documented in chart. Nutrition Intervention Revisit per MD consult or patient Sign Off request:
[2018-05-03] MEDS: TAMIFLU PO SCH (09:04)
[2018-05-03] MEDS: SODIUM CHLORIDE FLUSH SYRINGE 10 ML IV SCH (09:04)
[2018-05-03 12:40] VITALS: BP 124/69
[2018-05-03] MEDS: CEPACOL X STRENGTH MM PRN (12:45)
--- NOTE | 2018-05-03 15:00 | Discharge Summary ---
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 she was diagnosed with sepsis due to left lower lobe pneumonia, started on Ceftriaxone and Zithromax. She did not improve much. Repeat Chest Xray showed worsening therefore Pulmonology was consulted and she was evaluated. She improved slowly and eventually discharged home on 05/13/18 Total time spent on discharge, 32 mins Disposition: [place]- TO HOME OR SELFCARE - Discharge Diagnoses (1) Diabetes mellitus type 2 in obese Status: Acute (2) Acute respiratory failure Status: Acute (3) Pneumonia Status: Acute (4) Sepsis Status: Resolved (5) Sepsis Status: Acute Core Measure Documentation - Palliative Care Palliative Care/ Comfort Measures: Not Applicable - Core Measures Any of the following diagnoses?: none Exam - Constitutional Vitals: Temp Pulse Resp BP Pulse Ox 98.6 F 98 H 18 124/69 96 05/03/18 12:10 05/03/18 13:39 05/03/18 13:39 05/03/18 12:40 05/03/18 12:10 Plan Activity: no restrictions Diet: low fat, low cholesterol, low salt Additional Instructions: 1.Follow up with PCP or [facility] in 1 week. 2.Follow up with Gayle Castañeda in 1 week Follow up with: PRIMARY MD FIDEL [Primary Care Provider] - 3-5 Days
== END 2018-05-03 16:10 | disposition home or self-care (01) | DRG 871 ==
LOC: ED 16:38 → 4A 19:50 → IMCU 23:18 → 3A 04-30 23:23
PROVIDERS: ADMIT Internal Medicine; ATTEND Internal Medicine
DX: A41.9 Sepsis, unspecified organism (principal); J18.1 Lobar pneumonia, unspecified organism; D82.1 Di George's syndrome; J44.0 Chronic obstructive pulmonary disease with (acute) lower respiratory infection; F17.200 Nicotine dependence, unspecified, uncomplicated; R73.9 Hyperglycemia, unspecified; E87.6 Hypokalemia; D84.9 Immunodeficiency, unspecified; Z71.6 Tobacco abuse counseling; Z79.899 Other long term (current) drug therapy; Z90.49 Acquired absence of other specified parts of digestive tract
CPT/HCPCS: 36415; 71045; 71046; 71250; 80048; 80053; 81001; 81025; 82140; 82805; 82962; 83036; 85025; 85027; 85610; 87040; 87086; 87400; 93005; 93010; 94640; 94760; 96361; 96365; 96375; G0378; J0456; J0696; J1200; J1815; J1885; J1956; J2270; J2405; J7030; J7040; J7050

== ENCOUNTER 2019-06-16 17:09 | Emergency (ER) | payer MEDICAID ==
--- NOTE | 2019-06-16 18:36 | Emergency Department Report ---
Blank Doc - Documentation Documentation: 39-year-old female that presents with CP and SOB. Was sent by PCP for abnormal EKG. This initial assessment/diagnostic orders/clinical plan/treatment(s) is/are subject to change based on patient's health status, clinical progression and re- assessment by fellow clinical providers in the ED. Further treatment and workup at subsequent clinical providers discretion. Patient/guardians urged not to elope from the ED as their condition may be serious if not clinically assessed and managed. Initial orders include: 1- Patient sent to MAIN ED for further evaluation and treatment 2- cardiac work-up
[2019-06-16 19:19] LABS: Basophils # (Auto) 0.3 K/mm3 (0.0-0.1); Basophils % (Auto) 2.4 % (0.0-1.8); Eosinophils # (Auto) 0.1 K/mm3 (0.0-0.4); Eosinophils % (Auto) 0.9 % (0.0-4.3); Hematocrit 39.9 % (30.3-42.9); Hemoglobin 13.5 gm/dl (10.1-14.3); Lymphocytes # (Auto) 2.5 K/mm3 (1.2-5.4); Lymphocytes % (Auto) 23.2 % (13.4-35.0); Mean Corpuscular HGB Conc 34 % (30-34); Mean Corpuscular Volume 92 fl (79-97); Monocytes # (Auto) 0.8 K/mm3 (0.0-0.8); Monocytes % (Auto) 7.6 % (0.0-7.3); Platelet Count 174 K/mm3 (140-440); Red Blood Count 4.37 M/mm3 (3.65-5.03); Red Cell Distribution Width 13.4 % (13.2-15.2)
[2019-06-16 19:29] LABS: INR 0.88 (0.87-1.13)
[2019-06-16 19:30] LABS: Partial Thromboplastin Time 28.3 Sec. (24.2-36.6)
[2019-06-16 20:01] LABS: Alanine Aminotransferase 16 units/L (7-56); Albumin 4.1 g/dL (3.9-5); BUN/Creatinine Ratio 18; Blood Urea Nitrogen 9 mg/dL (7-17); Calcium 8.2 mg/dL (8.4-10.2); Hemolysis Index 13
--- NOTE | 2019-06-16 20:41 | XRay Report ---
CHEST 2 VIEWS INDICATION / CLINICAL INFORMATION: Chest Pain. COMPARISON: Chest x-ray 04/30/2018 FINDINGS: SUPPORT DEVICES: None. HEART / MEDIASTINUM: No significant abnormality. LUNGS / PLEURA: No significant pulmonary or pleural abnormality. No pneumothorax. ADDITIONAL FINDINGS: No significant additional findings. IMPRESSION: 1. No acute findings. Previously noted left lower lobe bronchopneumonia has completely resolved. Signer Name: Alfred Benitez MD Signed: 06/16/2019 8:36 PM Workstation Name: [id number]
[2019-06-16] MEDS ORDERED: INSULIN REGULAR, HUMAN 100 UNITS/1 ML IV ONE ×2 (23:28→23:45)
[2019-06-16] MEDS ORDERED: SODIUM CHLORIDE 0.9% 1000 ML 1,000 ML IV ONE (23:28)
--- NOTE | 2019-06-16 23:33 | Emergency Department Report ---
HPI - General Chief Complaint: Dyspnea/Respdistress Time Seen by Provider: 06/16/19 18:35 - HPI HPI: 39-year-old female presents to the emergency department from an urgent care for evaluation of acute shortness of breath and a questionable EKG. Also, the patient was found to have a blood sugar of 474 at the urgent care and the patient does not have any known history of diabetes. She does have a past medical history of DiGeorge syndrome. She follows with Dr. Torrey James but was unable to get in to see him today. She denies any cough, fever, wheezing, nausea, vomiting, back pain, lower extremity swelling. No recent travel or sick contacts at home. She has not taken anything for her symptoms, but did receive a 250 cc bolus by EMS in route. ED Past Medical Hx - Past Medical History Previous Medical History?: Yes Hx Congestive Heart Failure: No Hx Diabetes: No Hx Asthma: No Hx COPD: (HX STATES COPD,BUT PT DENIES) Hx HIV: No Additional medical history: D'Yandel Syndrome - Surgical History Past Surgical History?: Yes Hx Cholecystectomy: Yes - Social History Smoking Status: Current Every Day Smoker Substance Use Type: None - Medications Home Medications: Home Medications Medication Instructions Recorded Confirmed Last Taken Type Budesoni/Formotero 160-4.5(Nf) 2 puff IH BID #1 inha 07/06/16 05/01/18 Unknown Rx [Symbicort 160-4.5 (Nf)] Zolpidem [Ambien] 10 mg PO QHS #30 tablet 07/06/16 05/01/18 Unknown Rx HYDROcodone/APAP 5-325 [[place] 1 each PO Q6HR PRN #24 tablet 07/13/16 05/01/18 Unknown Rx 5-325 mg TAB] Benzocaine/Mentho [Cepacol X 1 each MM Q2HR PRN #1 packet 05/03/18 Unknown Rx Strength] Benzonatate [Tessalon Perles] 200 mg PO Q8HR PRN #20 capsule 05/03/18 Unknown Rx Oseltamivir [Tamiflu] 75 mg PO BID #4 cap 05/03/18 Unknown Rx cefUROXime [Ceftin] 500 mg PO Q12H 2 Days tablet 05/03/18 Unknown Rx Albuterol INH(or & Nicu Only) 2 puff IH QID PRN #1 inh 06/17/19 Unknown Rx [ProAir HFA Inhaler] ED Review of Systems ROS: Stated complaint: CHEST PAIN/MESFIN Other details as noted in HPI Comment: All other systems reviewed and negative Constitutional: denies: chills, fever Eyes: denies: eye pain, vision change ENT: denies: ear pain, throat pain Respiratory: shortness of breath. denies: cough Cardiovascular: denies: palpitations, edema Endocrine: increased thirst, increased urine Gastrointestinal: denies: abdominal pain, vomiting Genitourinary: frequency. denies: dysuria, discharge Musculoskeletal: denies: back pain, arthralgia Skin: denies: rash, lesions Neurological: denies: headache, weakness Physical Exam - Physical Exam Vital Signs: Vital Signs 06/16/19 06/16/19 18:20 18:34 Temperature 99.3 F Pulse Rate 116 H Respiratory 20 Rate Blood Pressure 131/81 O2 Sat by Pulse 97 Oximetry Physical Exam: GENERAL: The patient is well-developed well-nourished. HENT: Normocephalic. Atraumatic. Patient has moist mucous membranes. EYES: Extraocular motions are intact. NECK: Supple. Trachea is midline. CHEST/LUNGS: Clear to auscultation. There is no respiratory distress noted. HEART/CARDIOVASCULAR: Regular. There is mild tachycardia. There is no murmur. ABDOMEN: Abdomen is soft, nontender. Patient has normal bowel sounds. There is no abdominal distention. SKIN: Skin is warm and dry. NEURO: The patient is awake, alert, and cooperative. The patient has no focal neurologic deficits. Normal speech. MUSCULOSKELETAL: There is no tenderness or deformity. There is no evidence of acute injury. ED Course Vital Signs 06/16/19 06/16/19 18:20 18:34 Temperature 99.3 F Pulse Rate 116 H Respiratory 20 Rate Blood Pressure 131/81 O2 Sat by Pulse 97 Oximetry ED Medical Decision Making - Lab Data Result diagrams: 06/16/19 19:02 06/16/19 19:02 - EKG Data -: EKG Interpreted by Me EKG shows normal: sinus rhythm, axis, intervals, QRS complexes (Q waves to the anteroseptal leads), ST-T waves (Some flattening of the T waves to the lateral leads and T wave inversion to inferior leads) Rate: tachycardia (115 bpm) - EKG Data When compared to previous EKG there are: no significant change Interpretation: unchanged when compared t (04/28/18) - Radiology Data Radiology results: report reviewed, image reviewed interpreted by me: Chest x-ray does not show any acute process. There are no pleural effusions, obvious pneumonia and there is no pneumothorax. CT angiography of the chest with 2-D reconstructions INDICATION: Chest pain and elevated d-dimer Thin section axial images were obtained as well as 2-D refor matted MIP images in all 3 planes FINDINGS: There is no hilar or mediastinal adenopathy. No pleural or pericardial effusion. Lung windows show no nodules, masses or infiltrates. There is no thoracic aortic aneurysm or dissection present. Routine axial images as well as 2-D reconstructions through the pulmonary arteries show no evidence of emboli. There is extensive fatty infiltration of the liver. There are left upper quadrant varices. No splenomegaly is seen however and there is no ascites. There is calcified right upper lobe granuloma. IMPRESSION: Negative chest CTA - Medical Decision Making This patient presents to the emergency department from an urgent care with the complaint of some shortness of breath that started earlier today. She apparentl y also had an abnormal appearing EKG at the urgent care. The EKG done here is consistent with previous EKGs and does not show any signs of ST elevation ND or significant dysrhythmia. Patient's labs have been unremarkable including CBC, metabolic panel and troponin but the patient did have a very slightly elevated and equivocal d-dimer level. For this reason a CT angiography of the chest was done that did not show any pulmonary embolism, dissection, aneurysm, or any other acute processes. Patient also has an elevated blood sugar level. Both she and her mother say that they are unaware of any diagnosis of diabetes, but the patient does have multiple previous visits where her blood sugar level has been in the 2 and 300s. She was given a dose of insulin and her blood sugar came down to a much more reasonable level. No signs of diabetic ketoacidosis. Her vital signs been stable throughout her ED course. The patient has been reevaluated multiple times over multiple hours and is feeling improved. She is resting comfortably and no signs of any respiratory or acute distress. She has good outpatient follow-up with her primary care physician, Dr. Torrey James, and has been instructed to follow-up with him in the next few days. She will return to the ER with any worsening of her symptoms or any acute distress. - Differential Diagnosis Asthma, pneumonia, dysrhythmia, PE Critical Care Time: No Critical care attestation.: If time is entered above; I have spent that time in minutes in the direct care of this critically ill patient, excluding procedure time. ED Disposition Clinical Impression: Hyperglycemia Dyspnea Qualifiers: Dyspnea type: shortness of breath Qualified Code(s): R06.02 - Shortness of breath; R06.00 - Dyspnea, unspecified; R06.01 - Orthopnea Disposition: DC TO HOME OR SELFCARE Is pt being admited?: No Condition: Stable Instructions: Dyspnea (ED), Hyperglycemia, Non-Diabetic (ED), Diabetic Hyperglycemia (ED) Additional Instructions: Please follow-up with your primary care physician in the next few days. Return to the emergency department with any worsening of your symptoms or any acute distress. Try and stay away from foods that are high in sugar, carbohydrates and starches. Keep a blood sugar log. Prescriptions: Albuterol INH(or & Nicu Only) [ProAir HFA Inhaler] 2 puff IH QID PRN #1 inh PRN Reason: Shortness Of Breath Referrals: TORREY JAMES MD [Primary Care Provider] - 2-3 Days Time of Disposition: 03:31
[2019-06-16] MEDS ORDERED: KETOROLAC 30 MG/1 ML INJ IV ONE (23:39)
[2019-06-17] MEDS ORDERED: POTASSIUM CHLORIDE ER 10 MEQ TAB PO ONE (00:09)
[2019-06-17] MEDS ORDERED: ACETAMINOPHEN 325 MG TAB PO ONE (01:20)
[2019-06-17 03:31] VITALS: BP 119/74
--- NOTE | 2019-06-17 03:48 | Cat Scan Report ---
CT angiography of the chest with 2-D reconstructions INDICATION: Chest pain and elevated d-dimer Thin section axial images were obtained as well as 2-D reformatted MIP images in all 3 planes FINDINGS: There is no hilar or mediastinal adenopathy. No pleural or pericardial effusion. Lung windo ws show no nodules, masses or infiltrates. There is no thoracic aortic aneurysm or dissection present . Routine axial images as well as 2-D reconstructions through the pulmonary arteries show no evidence of emboli. There is extensive fatty infiltration of the liver. There are left upper quadrant varices . No splenomegaly is seen however and there is no ascites. There is calcified right upper lobe granul michelle. IMPRESSION: Negative chest CTA Automated exposure control was utilized to diminish radiation dose. Signer Name: Brandon Lynch MD Signed: 06/17/2019 3:43 AM Workstation Name: [id number]
[2019-06-17] MEDS ORDERED: traMADol 50 MG TAB PO ONE (03:51)
== END 2019-06-17 03:58 | disposition home or self-care (01) ==
LOC: ED 17:09
DX: R73.9 Hyperglycemia, unspecified (principal); R06.00 Dyspnea, unspecified; F17.200 Nicotine dependence, unspecified, uncomplicated; Z79.899 Other long term (current) drug therapy; Z90.49 Acquired absence of other specified parts of digestive tract
CPT/HCPCS: 36415; 71046; 71275; 80053; 82962; 84484; 84703; 85025; 85379; 85610; 85730; 93005; 93010; 96374; 96375; 99285; J1885; J7030; Q9967; J1815